=== PATIENT | male | born 1940 | race Caucasian/White ===

== ENCOUNTER → 2017-07-14 | Outpatient (CLI) | payer MEDICARE, OTHER, MEDICAID ==
[2017-07-14 16:10] LABS: ABG BASE EXCESS 2.4 MMOL/L (-2.5-2.5); ABG HCO3 26 MMOL/L (23-27); ABG OXYGEN SATURATION 95 % (94-100); ABG PCO2 37 MMHG (35-45); ABG PH 7.46 (7.37-7.43); ABG PO2 62 MMHG (79-93); ABG TCO2 27.3 MMOL/L (21.0-31.0)
[2017-07-14 16:11] LABS: ALLENS TEST POSITIVE; PATIENT TEMP 97.1
== END ==
LOC: LAB 15:33
PROVIDERS: ATTEND Nurse Practitioner Family
DX: J44.9 Chronic obstructive pulmonary disease, unspecified (principal); R06.00 Dyspnea, unspecified; F17.200 Nicotine dependence, unspecified, uncomplicated
CPT/HCPCS: 82805

== ENCOUNTER 2021-01-24 15:19 | Observation (INO) | payer OTHER ==
[~2021-01-24] VITALS: Ht 167 cm; Wt 74.5 kg
[2021-01-24] MEDS ORDERED: NS IV 1000 ML 1,000 ML IV STA ×2 (15:42→18:38)
[2021-01-24 16:04] LABS: BASOPHILS % (AUTO) 1 % (0-10); EOSINOPHILS % (AUTO) 6 % (0-10); HEMATOCRIT 38 % (40-54); HEMOGLOBIN 11.3 G/DL (13.3-17.7); LYMPHOCYTES % (AUTO) 10 % (12-44); MEAN CORPUSCULAR HEMOGLOBIN 23 PG (25-34); MEAN CORPUSCULAR HGB CONC 30 G/DL (32-36); MEAN CORPUSCULAR VOLUME 78 FL (80-99); MEAN PLATELET VOLUME 8.8 FL (7.4-10.4); MONOCYTES % (AUTO) 10 % (0-12); NEUTROPHILS % (AUTO) 73 % (42-75); PLATELET COUNT 349 10^3/uL (130-400); WHITE BLOOD COUNT 5.4 10^3/uL (4.3-11.0)
[2021-01-24 16:05] LABS: BASOPHILS # (AUTO) 0.1 10^3/uL (0.0-0.1); EOSINOPHILS # (AUTO) 0.3 10^3/uL (0.0-0.3); LYMPHOCYTES # (AUTO) 0.5 X 10^3 (1.0-4.0); MONOCYTES # (AUTO) 0.5 X 10^3 (0.0-1.0)
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
--- NOTE | 2021-01-24 16:08 | Diagnostic Imaging Report ---
INDICATION: Shortness of breath and general malaise. Frontal chest obtained at 0349 p.m. There is no prior study for comparison. The heart is normal in size. Mediastinal silhouette is unremarkable. There is a density in the left base which is probably due to epicardial fat pad. There is no focal infiltrate or pneumothorax. There is mild hyperinflation. There are old granulomatous changes in both lungs. IMPRESSION: Hyperinflation compatible COPD. No focal infiltrate or pleural fluid. Density along left heart border is probably a prominent fat pad. There are calcified granuloma in both lungs. Dictated by: Dictated on workstation # [id number]
[2021-01-24 16:23] LABS: ALBUMIN 4.2 GM/DL (3.2-4.5); BILIRUBIN,TOTAL 0.5 MG/DL (0.1-1.0); CREATININE SERUM 1.53 MG/DL (0.60-1.30); POTASSIUM 4.2 MMOL/L (3.6-5.0); TOTAL PROTEIN 7.7 GM/DL (6.4-8.2)
[2021-01-24] MEDS ORDERED: BUDE10.2 IH (16:54)
[2021-01-24] MEDS ORDERED: ALBU2.5V4 INH (16:54)
[2021-01-24] MEDS ORDERED: IPRA4AER IH (16:54)
[2021-01-24] MEDS ORDERED: Ipratropium Bromide IH (16:54)
[2021-01-24] MEDS ORDERED: SENN-36 PO (16:54)
[2021-01-24] MEDS ORDERED: PANT40TA52 PO (16:54)
[2021-01-24 17:08] LABS: CLARITY,URINE CLEAR; COLOR,URINE YELLOW
[2021-01-24 17:09] LABS: BILIRUBIN,URINE NEGATIVE (NEGATIVE); GLUCOSE, URINE (UA) NEGATIVE (NEGATIVE); KETONES,URINE NEGATIVE (NEGATIVE); LEUKOCYTE ESTERASE ,URINE NEGATIVE (NEGATIVE); NITRITE,URINE NEGATIVE (NEGATIVE); PROTEIN,URINE NEGATIVE (NEGATIVE)
[2021-01-24 17:13] LABS: BACTERIA,URINE NEGATIVE /HPF
[2021-01-24] MEDS: NS IV 1000 ML 1,000 ML IV SCH (22:40)
[2021-01-24 23:17] VITALS: BP 143/99
[2021-01-24] MEDS ORDERED: RT-ALBUTEROL SULF 2.5 MG/3 ML PRE-MIX VIAL INH PRN (23:30)
[2021-01-25 00:06] VITALS: BP 135/63
[2021-01-25 02:30] LABS: BASOPHILS # (AUTO) 0.1 10^3/uL (0.0-0.1); BASOPHILS % (AUTO) 1 % (0-10); EOSINOPHILS # (AUTO) 0.4 10^3/uL (0.0-0.3); EOSINOPHILS % (AUTO) 7 % (0-10); HEMATOCRIT 36 % (40-54); HEMOGLOBIN 10.4 g/dL (13.3-17.7); LYMPHOCYTES # (AUTO) 0.7 10^3/uL (1.0-4.0); LYMPHOCYTES % (AUTO) 11 % (12-44); MEAN CORPUSCULAR HEMOGLOBIN 24 pg (25-34); MEAN CORPUSCULAR HGB CONC 29 g/dL (32-36); MEAN CORPUSCULAR VOLUME 81 fL (80-99); MEAN PLATELET VOLUME 9.5 fL (9.0-12.2); MONOCYTES # (AUTO) 0.7 10^3/uL (0.0-1.0); MONOCYTES % (AUTO) 12 % (0-12); NEUTROPHILS # (AUTO) 4.1 10^3/uL (1.8-7.8); NEUTROPHILS % (AUTO) 69 % (42-75); PLATELET COUNT 285 10^3/uL (130-400); WHITE BLOOD COUNT 5.9 10^3/uL (4.3-11.0)
[2021-01-25 02:50] LABS: ALBUMIN 3.5 GM/DL (3.2-4.5); BILIRUBIN,TOTAL 0.5 MG/DL (0.1-1.0); CALCIUM 8.1 MG/DL (8.5-10.1); CREATININE SERUM 1.36 MG/DL (0.60-1.30); POTASSIUM 3.6 MMOL/L (3.6-5.0); TOTAL PROTEIN 6.7 GM/DL (6.4-8.2)
[2021-01-25 04:23] VITALS: BP 112/53
[2021-01-25] MEDS: NS IV 1000 ML 1,000 ML IV SCH (06:43)
[2021-01-25] MEDS ORDERED: RT-ALBUTEROL/IPRATROPIUM 3 ML (DUONEB) VIAL INH SCH (07:00)
[2021-01-25 08:00] VITALS: BP 143/79
[2021-01-25] MEDS ORDERED: RT-BUDESONIDE NEBS 0.5 MG/2ML (PULMICORT) AMP INH SCH (08:00)
[2021-01-25] MEDS ORDERED: ARFORMOTEROL 15 MCG/2 ML (BROVANA) INH SOLUTIION IH SCH (08:00)
[2021-01-25 08:38] VITALS: BP_SYST 127; BP_SYST 131; BP_DIAS 60; BP_DIAS 64
[2021-01-25] MEDS ORDERED: LIDOCAINE 1% INJ 20 ML 20 ML VIAL ONE (09:47)
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
[2021-01-25] MEDS ORDERED: NAPR220C11 PO (11:20)
[2021-01-25] MEDS ORDERED: IPRA4AER IH (11:20)
[2021-01-25] MEDS ORDERED: IPR14IN IH (11:20)
[2021-01-25] MEDS ORDERED: ASPI-1238 PO (11:20)
--- NOTE | 2021-01-25 11:45 | Discharge Summary ---
Discharge Summary Hospital Course Problems/Dx: (1) Near syncope Status: Acute Hospital Course Date of Admission: Jan 24, 2021 at 22:00 Admission Diagnosis : Near syncope Family Physician/Provider: Frederic Barnes Physician Date of Discharge: 01/25/21 Discharge Diagnosis: Near syncope Hospital Course: Sharon Adamson is an 80-year-old male with past medical history of COPD who was admitted with near syncope. He reports that he has been having issues with palpitations for years. He reports associated chills and nausea. He denies ever passing out. He has no history of cardiac abnormalities. Cardiology was cons ulted and assisted with his care. He had an implantable loop recorder placed. He will follow up with cardiology as an outpatient. He underwent evaluation for orthostatic hypotension but this was ruled out. He should follow-up with his primary care physician in about a week. He was instructed to return with worsening lightheadedness, dizziness, chest pain, or if he feels like he is getting worse. He was discharged home in stable condition. Labs and Pending Lab Test: Laboratory Tests 01/24/21 14:39: Prothrombin Time 13.0, INR Comment 1.0, Activated Partial Thromboplast Time 32, Sodium Level 136, Potassium Level 4.2, Chloride Level 101, Carbon Dioxide Level 23, Anion Gap 12, Blood Urea Nitrogen 14, Creatinine 1.53H, Estimat Glomerular Filtration Rate 44, BUN/Creatinine Ratio 9, Glucose Level 123H, Calcium Level 9.0, Corrected Calcium 8.8, Magnesium Level 2.0, Total Bilirubin 0.5, Aspartate Amino Transf (AST/SGOT) 26, Alanine Aminotransferase (ALT/SGPT) 16, Alkaline Phosphatase 97, Total Protein 7.7, Albumin 4.2, Lipase 22 01/24/21 15:51: White Blood Count 5.4, Red Blood Count 4.86, Hemoglobin 11.3L, Hematocrit 38L, Mean Corpuscular Volume 78L, Mean Corpuscular Hemoglobin 23L, Mean Corpuscular Hemoglobin Concent 30L, Red Cell Distribution Width 15.4H, Platelet Count 349, Mean Platelet Volume 8.8, Immature Granulocyte % (Auto) 0, Neutrophils (%) (Auto) 73, Lymphocytes (%) (Auto) 10L, Monocytes (%) (Auto) 10, Eosinophils (%) (Auto) 6, Basophils (%) (Auto) 1, Neutrophils # (Auto) 4.0, Lymphocytes # (Auto) 0.5L, Monocytes # (Auto) 0.5, Eosinophils # (Auto) 0.3, Basophils # (Auto) 0.1, Immature Granulocyte # (Auto) 0.0, Troponin I < 0.30, Pro-B-Type Natriuretic Peptide 1108.0H 01/24/21 17:00: Urine Color YELLOW, Urine Clarity CLEAR, Urine pH 6.0, Urine Specific [place] 1.010L, Urine Protein NEGATIVE, Urine Glucose (UA) NEGATIVE, Urine Ketones NEGATIVE, Urine Nitrite NEGATIVE, Urine Bilirubin NEGATIVE, Urine Urobilinogen 0.2, Urine Leukocyte Esterase NEGATIVE, Urine RBC (Auto) NEGATIVE, Urine RBC NONE, Urine WBC 2-5, Urine Squamous Epithelial Cells 2-5, Urine Crystals NONE, Urine Bacteria NEGATIVE, Urine Casts NONE, Urine Mucus NEGATIVE, Urine Culture Indicated NO 01/25/21 01:45: Sodium Level 140, Potassium Level 3.6, Chloride Level 109H, Carbon Dioxide Level 20L, Anion Gap 11, Blood Urea Nitrogen 11, Creatinine 1.36H, Estimat Glomerular Filtration Rate 50, BUN/Creatinine Ratio 8, Glucose Level 96, Calcium Level 8.1L , Corrected Calcium 8.5, Total Bilirubin 0.5, Aspartate Amino Transf (AST/SGOT) 23, Alanine Aminotransferase (ALT/SGPT) 16, Alkaline Phosphatase 76, Total Protein 6.7, Albumin 3.5, White Blood Count 5.9, Red Blood Count 4.39, Hemoglobin 10.4L, Hematocrit 36L, Mean Corpuscular Volume 81, Mean Corpuscular Hemoglobin 24L, Mean Corpuscular Hemoglobin Concent 29L, Red Cell Distribution Width 15.2H, Platelet Count 285, Mean Platelet Volume 9.5, Immature Granulocyte % (Auto) 1, Neutrophils (%) (Auto) 69, Lymphocytes (%) (Auto) 11L, Monocytes (%) (Auto) 12, Eosinophils (%) (Auto) 7, Basophils (%) (Auto) 1, Neutrophils # (Auto) 4.1, Lymphocytes # (Auto) 0.7L, Monocytes # (Auto) 0.7, Eosinophils # (Auto) 0.4H, Basophils # (Auto) 0.1, Immature Granulocyte # (Auto) 0.0, Troponin I < 0.028 Home Meds Active Reported Aleve (Naproxen Sodium) 220 Mg Capsule 220 Mg PO TID PRN Aspirin EC (Aspirin) 81 Mg Tablet.dr 81 Mg PO DAILY Atrovent Hfa (Ipratropium [place]) 12.9 Gm Aers 2 Puff IH BID PRN Combivent Respimat Inhal [place] (Albuterol/Ipratropium) 4 Gm Aero 1 Puff IH QID PRN MDD 6 PUFF PER DAY Senokot (Sennosides) 8.6 Mg Tablet 8.6 Mg PO BID PRN Pantoprazole Sodium 40 Mg Tablet.dr 40 Mg PO DAILY Symbicort 160-4.5 Mcg Inhaler (Budesonide/Formoterol Fumarate) 10.2 Gm Hfa.aer.ad 2 Puff IH BID Assessment/Pt Instructions Take medications as prescribed. You had a implantable loop recorder placed. Follow-up with cardiology as scheduled. Follow-up with your primary care physician in about a week. Return with worsening lightheadedness, dizziness, chest pain, or if you feel like you are getting worse. Discharge Planning: <30 minutes discharge planning Discharge Instructions Discharge Diet: No Restrictions Activity as Tolerated: Yes Consultations Cardiology Discharge Physical Examination Vital Signs Vital Signs Date Time Temp Pulse Resp B/P (MAP) Pulse Ox O2 Delivery O2 Flow Rate FiO2 01/25/21 10:44 93 Room Air 01/25/21 08:38 98 127/64 (85) 102 131/60 (83) 103 131/60 (83) 01/25/21 08:00 36.0 20 01/24/21 23:17 21 General Appearance: No Apparent Distress, WD/WN HEENT: PERRL/EOMI, Pharynx Normal Respiratory: Lungs Clear, Normal Breath Sounds, No Respiratory Distress Cardiovascular: Regular Rate, Rhythm, No Murmur Gastrointestinal: Normal Bowel Sounds, Non Tender, Soft Extremity: Normal Inspection, Non Tender, Pedal Edema Skin: Normal Color, Warm/Dry Neurologic/Psychiatric: Alert, Oriented x3, No Motor/Sensory Deficits, Normal Mood/Affect Allergies: Coded Allergies: simvastatin (Unverified Adverse Reaction, Unknown, 01/24/21) Discharge Summary Date of Admission Jan 24, 2021 at 22:00 Date of Discharge Discharge Date: Jan 25, 2021 Discharge Time: 11:45 Admission Diagnosis Near syncope Consults/Procedures Consulations Cardiology Procedures Implantable loop recorder Discharge Diagnosis (1) Near syncope Status: Acute ESAU SMITH MD Jan 25, 2021 11:45
[2021-01-25 15:28] VITALS: BP 131/60
--- NOTE | 2021-01-25 17:43 | OPERATIVE REPORT ---
DATE OF SERVICE: 01/25/2021 PREOPERATIVE DIAGNOSIS: Near syncope. POSTOPERATIVE DIAGNOSIS: Near syncope. PROCEDURE: Implantable loop recorder implantation. INDICATIONS: The patient is an 80-year-old gentleman who has symptoms of near syncope and palpitations. Symptoms are infrequent, but quite bothersome to him. Implantable loop recorder implantation was carried out today after having obtained an informed consent. DESCRIPTION OF PROCEDURE: The left prepectoral area was prepared and draped in the usual sterile fashion. Lidocaine 1% was used for local anesthesia. The tools provided with the Medtronic Reveal LINQ device were used to make a subcutaneous pocket anterior to the fourth intercostal space into which the Medtronic Reveal LINQ device was placed and the wound edges were closed using Dermabond and Steri-Strips. The serial number of the device is [id number]. He tolerated the procedure well. Job ID: [id number] DocumentID: [id number] Dictated Date: 01/25/2021 10:24:22 [employer] Date: 01/25/2021 17:42:15 Dictated By: JOSR YANG MD, MA, FACP, FACC, MTDD
--- NOTE | 2021-01-25 17:44 | Consultation-Cardiology ---
HPI-Cardiology Cardiology Consultation: Date of Consultation 01/25/21 Time Seen by a Provider: 09:30 Date of Admission Attending Physician Roxy Dumont MD Admitting Physician Mica Green Consulting Physician JOSR YANG MD, MA, FACP, FACC, [facility] [place], CCDS HPI: Chief Complaint: CC: Near-syncope HPI Mr. Adamson is an 80 yr old male admitted to [facility] d/t near syncope. He reports he has had infrequent episodes of syncope/near syncope for over a year for which he has quit driving. He reports the episodes can occur while sitting at rest or even when lying down. He states he can feel them coming on; describing it as starting out as a drunk feeling at which time he becomes warm and flushed, nauseated, everything starts to go dark and then he has a sudden cold sensation with a feeling of a somewhat fast heartbeat. He reports he will just sit "real still" and after approx 1- 2 minutes the episode will pass. No c/o CP. No c/o LE swelling. He quit smoking over a year ago. He denies any diarrhea. He has chronic SOB d/t COPD which is unchanged. Review of Systems-Cardiology Review of Systems Constitutional: No chills, No fever; malaise Ears/Nose/Throat: No epistaxis, No recent hearing loss Respiratory: As described under HPI Cardiovascular: As described under HPI Gastrointestinal: As described under HPI Genitourinary: No dysuria, No hematuria Musculoskeletal: other (chronic leg pain/weakness) Skin: No rash on exposed areas, No ulcerations on exposed areas Psychiatric/Neurological: As described under HPI; No anxiety, No depression, No seizure, No focal weakness Hematologic: No bleeding abnormalities JLA-Zyocxw-Krdszz Hx Patient Social History Smoking Status: Former Smoker 2nd Hand Smoke Exposure: Yes Have you traveled recently?: No Alcohol Use?: No Pt feels they are or have been: No Tobacco type used: Cigars Immunizations Up To Date Tetanus Booster (TDap): Unknown Date of Pneumonia Vaccine: Aug 14, 2016 Past Medical History PMH As described under Assessment. Family Medical History Family Medical History: He does not report any family h/o CAD Allergies and Home Medications Allergies Coded Allergies: simvastatin (Unverified Adverse Reaction, Unknown, 01/24/21) Home Medications Albuterol/Ipratropium 4 Gm Aero, 1 PUFF IH QID PRN for SHORTNESS OF BREATH, (Reported) Last Action: Reviewed Aspirin 81 Mg Tablet.dr, 81 MG PO DAILY, (Reported) Last Action: Reviewed Budesonide/Formoterol Fumarate 10.2 Gm Hfa.aer.ad, 2 PUFF IH BID, (Reported) Last Action: Reviewed Ipratropium [place] 12.9 Gm Aers, 2 PUFF IH BID PRN for SHORTNESS OF BREATH, (Reported) Last Action: Reviewed Naproxen Sodium 220 Mg Capsule, 220 MG PO TID PRN for PAIN-MILD (1-4), (Reported) Last Action: Reviewed Pantoprazole Sodium 40 Mg Tablet.dr, 40 MG PO DAILY, (Reported) Last Action: Reviewed Sennosides 8.6 Mg Tablet, 8.6 MG PO BID PRN for CONSTIPATION-5TH LINE, (Reported) Last Action: Reviewed Patient Home Medication List Home Medication List Reviewed: Yes Physical Exam-Cardiology Physical Exam Vital Signs/I&O 01/25/21 01/25/21 01/25/21 01/25/21 07:14 07:21 07:25 08:00 Temp 36.0 Pulse 81 88 Resp 20 B/P (MAP) 143/79 (100) Pulse Ox 91 98 91 O2 Delivery Room Air Room Air Room Air 01/25/21 01/25/21 01/25/21 01/25/21 08:00 08:38 10:44 12:00 Temp 36.1 Pulse 98 102 103 B/P (MAP) 127/64 (85) 131/60 (83) 131/60 (83) Pulse Ox 95 93 O2 Delivery Room Air Room Air 01/25/21 01/25/21 13:00 15:28 Temp 36.1 Pulse 94 94 Resp 20 B/P (MAP) 131/60 Pulse Ox 93 O2 Delivery Room Air 01/25/21 00:00 Intake Total 1350 ml Balance 1350 ml Capillary Refill : Less Than 3 Seconds Constitutional: AAO x 3, well-developed, well-nourished HEENT: PERRL, hearing is well preserved, oral hygience is good Neck: No carotid bruit; carotid pulses are 2 + bilaterally Respiratory: No accessory muscle use, No respiratory distress; chest expansion is symmetric, chest is bilaterally symmetric, lungs clear to auscultation Cardiovascular: regular rate-rhythm; No JVD; S1 and S2 Gastrointestinal: No tender; soft Extremities: no lower extremity edema bilateral Neurologic/Psychiatric: grossly intact (moves all extremities) Skin: No rash on exposed areas, No ulcerations on exposed areas Data Review Labs Laboratory Tests 01/25/21 01:45: White Blood Count 5.9, Red Blood Count 4.39, Hemoglobin 10.4L, Hematocrit 36L, Mean Corpuscular Volume 81, Mean Corpuscular Hemoglobin 24L, Mean Corpuscular Hemoglobin Concent 29L, Red Cell Distribution Width 15.2H, Platelet Count 285, Mean Platelet Volume 9.5, Immature Granulocyte % (Auto) 1, Neutrophils (%) (Auto) 69, Lymphocytes (%) (Auto) 11L, Monocytes (%) (Auto) 12, Eosinophils (%) (Auto) 7, Basophils (%) (Auto) 1, Neutrophils # (Auto) 4.1, Lymphocytes # (Auto) 0.7L, Monocytes # (Auto) 0.7, Eosinophils # (Auto) 0.4H, Basophils # (Auto) 0.1, Immature Granulocyte # (Auto) 0.0, Sodium Level 140, Potassium Level 3.6, Chloride Level 109H, Carbon Dioxide Level 20L, Anion Gap 11, Blood Urea Nitrogen 11, Creatinine 1.36H, Estimat Glomerular Filtration Rate 50, BUN/Creatinine Ratio 8, Glucose Level 96, Calcium Level 8.1L, Corrected Calcium 8.5, Total Bilirubin 0.5, Aspartate Amino Transf (AST/SGOT) 23, Alanine Aminotransferase (ALT/SGPT) 16, Alkaline Phosphatase 76, Troponin I < 0.028, Total Protein 6.7, Albumin 3.5 A/P-Cardiology Assessment/Admission Diagnosis Syncope/near syncope of undetermined etiology - ILR implanted on 01/25/21 Severe PAD with h/o arterial graft from the right shoulder to the lower limb circulation done at [facility] in [place], [place] - details unknown COPD H/O tobaccoism - quit in 2019 Discussion and Recomendations Due to symptoms of near-syncope that are infrequent but quite prominent, we recommended ILR We discussed the procedure, risk, benefits. He provided informed consent. ILR was implanted Advise out pt f/u in 2-3 weeks Advise continue smoking cessation Carotid u/s Spoke with Dr. Dumont this morning regarding his case We would like to thank Medical services for this consult Further recs will be based on his hospital course JOSR YANG MD FACP FAC CCDS Jan 25, 2021 17:44
== END 2021-01-25 15:35 | disposition home or self-care (01) ==
LOC: EDUNIT# 15:19 → ER FS 15:21 → 4TH 22:00
PROVIDERS: ADMIT Internal Medicine; ATTEND Internal Medicine
DX: R55 Syncope and collapse (principal); J44.9 Chronic obstructive pulmonary disease, unspecified; N18.9 Chronic kidney disease, unspecified; R42 Dizziness and giddiness; I73.9 Peripheral vascular disease, unspecified; Z79.82 Long term (current) use of aspirin; Z79.51 Long term (current) use of inhaled steroids; Z79.899 Other long term (current) drug therapy; Z88.8 Allergy status to other drugs, medicaments and biological substances; Z87.891 Personal history of nicotine dependence
CPT/HCPCS: 33285; 36415; 71045; 80053 ×2; 81000; 83690; 83735; 83880; 84484 ×2; 85025 ×2; 85610; 85730; 93005; 93041; 94640; 94760; 99284; C1764; G0378

== ENCOUNTER → 2021-02-27 | Outpatient (CLI) | payer OTHER ==
[~2021-02-27] MED LIST: ALBU2.5V4 INH; ASPI-1238 PO; BUDE10.2 IH; IPR14IN IH; IPRA4AER IH; Ipratropium Bromide IH; NAPR220C11 PO; PANT40TA52 PO; SENN-36 PO
--- NOTE | 2021-02-27 15:37 | Diagnostic Imaging Report ---
PROCEDURE: US carotid duplex, bilateral. INDICATION: Near syncopal episode. History of tobacco use. TECHNIQUE: Multiple real-time grayscale images were obtained over the carotid arteries in various projections bilaterally. Additional spectral analysis and color Doppler and Duplex images were also obtained. CORRELATION: None FINDINGS: Right carotid circulation: The right common carotid artery is normal in course and caliber. There is moderate atherosclerosis at the carotid bifurcation and origin the right internal and external carotid artery. No hemodynamically significant stenosis is present. Left carotid circulation: The left common carotid artery is normal in course and caliber. Fairly tortuous course of the left internal carotid artery. There is moderate atherosclerosis of the carotid bifurcation and origin the left internal and external carotid artery. No hemodynamically significant stenosis is present. Antegrade flow in the bilateral vertebral arteries. DOPPLER (peak systolic velocity M/S Right Left CCA .74 .73 ICA Proximal .40 .43 ICA Mid .68 1.2 ICA Distal .70 1.3 RATIO .95 1.8 ECA 1.8 1.2 VERT .57 .48 IMPRESSION: 1. Moderate atherosclerosis involving the carotid bifurcations and origin of the bilateral internal and external carotid arteries left slightly greater than right. 2. No sonographic evidence of hemodynamically significant stenosis of either internal carotid artery based on flow velocity criteria. 3. Mild stenosis of bilateral external carotid arteries. 4. Given findings, periodic follow-up survey assessment would be recommended. Parameters based on the consensus panel Adkins-Scale and Doppler ultrasound criteria published July 2003, Radiology, Volume 229. Dictated by: Dictated on workstation # [id number]
--- NOTE | 2021-02-27 16:23 | Diagnostic Imaging Report ---
PROCEDURE: CT head without contrast. TECHNIQUE: Multiple contiguous axial images were obtained through the brain without the use of intravenous contrast. Auto Exposure Controls were utilized during the CT exam to meet ALARA standards for radiation dose reduction. DATE: February 27, 2021. COMPARISON: None. INDICATION: 80-year-old male, syncope, weakness. FINDINGS: The ventricles and cerebral spinal fluid spaces are of normal size and configuration for the patient's age. There is no mass effect or midline shift. There is no acute intracranial hemorrhage. There is no abnormal extra-axial fluid collection. The visualized portions of the paranasal sinuses, mastoid air cells and middle ears are well aerated. IMPRESSION: 1. No identified acute intracranial abnormality. Dictated by: Dictated on workstation # [id number]
== END ==
LOC: RAD 12:30
PROVIDERS: ATTEND Nurse Practitioner
DX: I65.23 Occlusion and stenosis of bilateral carotid arteries (principal); Z87.891 Personal history of nicotine dependence
CPT/HCPCS: 70450; 93880

== ENCOUNTER 2022-02-15 20:00 | Inpatient (IN) | payer OTHER, MEDICARE, MEDICAID ==
[~2022-02-15] VITALS: Ht 168 cm; Wt 70.9 kg
[2022-02-15] MEDS ORDERED: FUROSEMIDE 40 MG/4 ML INJ (LASIX) ONE (20:08)
[2022-02-15] MEDS ORDERED: RT-IPRATROPIUM (ATROVENT) 0.5MG/2.5ML AMP IH STA (20:09)
[2022-02-15] MEDS ORDERED: methylPREDNISolone 125 MG (Solu-MEDROL) VIAL IM ONE (20:15)
[2022-02-15] MEDS ORDERED: FUROSEMIDE 40 MG/4 ML INJ (LASIX) IVP ONE (20:15)
[2022-02-15 20:17] LABS: BASOPHILS # (AUTO) 0.1 10^3/uL (0.0-0.1); BASOPHILS % (AUTO) 1 % (0-10); EOSINOPHILS # (AUTO) 0.5 10^3/uL (0.0-0.3); EOSINOPHILS % (AUTO) 7 % (0-10); HEMATOCRIT 43 % (40-54); HEMOGLOBIN 13.8 g/dL (13.3-17.7); LYMPHOCYTES # (AUTO) 0.6 10^3/uL (1.0-4.0); LYMPHOCYTES % (AUTO) 9 % (12-44); MEAN CORPUSCULAR HEMOGLOBIN 28 pg (25-34); MEAN CORPUSCULAR HGB CONC 32 g/dL (32-36); MEAN CORPUSCULAR VOLUME 88 fL (80-99); MEAN PLATELET VOLUME 9.3 fL (9.0-12.2); MONOCYTES # (AUTO) 0.7 10^3/uL (0.0-1.0); MONOCYTES % (AUTO) 11 % (0-12); NEUTROPHILS # (AUTO) 4.6 10^3/uL (1.8-7.8); NEUTROPHILS % (AUTO) 71 % (42-75); PLATELET COUNT 272 10^3/uL (130-400); WHITE BLOOD COUNT 6.4 10^3/uL (4.3-11.0)
--- NOTE | 2022-02-15 20:25 | Diagnostic Imaging Report ---
EXAMINATION: Chest 1 view. HISTORY: SOB. COMPARISON: None available. FINDINGS: Heart size and pulmonary vasculature are normal. Patchy interstitial opacities seen throughout the left lung. No pleural effusion or pneumothorax. The right costophrenic angle is not entirely visualized. Right axillary surgical clips are present. The osseous structures are intact. IMPRESSION: Patchy interstitial opacities seen throughout the left lung concerning for pneumonia. Dictated by: Dictated on workstation # [id number]
[2022-02-15 20:30] LABS: FIBRIN DEGRADATION PRODUCTS 2.54 UG/ML (0.00-0.49); INR 0.9 (0.8-1.4); PROTHROMBIN TIME PATIENT 12.6 SEC (12.2-14.7)
[2022-02-15 20:35] LABS: BUN/CREATININE RATIO 10; CARBON DIOXIDE 26 MMOL/L (21-32); CHLORIDE 101 MMOL/L (98-107); CREATININE SERUM 1.08 MG/DL (0.60-1.30); GFR ESTIMATED 69; GLUCOSE 104 MG/DL (70-105); MAGNESIUM 2.1 MG/DL (1.6-2.4); POTASSIUM 4.2 MMOL/L (3.6-5.0); SODIUM 138 MMOL/L (135-145)
[2022-02-15 20:36] LABS: ALANINE AMINOTRANSFERASE 16 U/L (0-55); ALBUMIN 4.1 GM/DL (3.2-4.5); ALKALINE PHOSPHATASE 90 U/L (40-136); BILIRUBIN,TOTAL 0.3 MG/DL (0.1-1.0); TOTAL PROTEIN 7.4 GM/DL (6.4-8.2)
[2022-02-15] MEDS ORDERED: CEFEPIME INJECTION 1,000 MG in NS (IVPB) 50 ML IV ONE (20:45)
[2022-02-15 20:58] LABS: BILIRUBIN,URINE NEGATIVE (NEGATIVE); CLARITY,URINE CLEAR; COLOR,URINE YELLOW; GLUCOSE, URINE (UA) NEGATIVE (NEGATIVE); KETONES,URINE NEGATIVE (NEGATIVE); LEUKOCYTE ESTERASE ,URINE NEGATIVE (NEGATIVE); NITRITE,URINE NEGATIVE (NEGATIVE); PROTEIN,URINE NEGATIVE (NEGATIVE)
[2022-02-15] MEDS ORDERED: HOLD METFORMIN - RECEIVED CONTRAST 20 ML VIAL IV SCH (21:00)
[2022-02-15] MEDS ORDERED: NS 100 ML (IVPB) BAG IV ONE (21:00)
[2022-02-15] MEDS ORDERED: IOHEXOL 350 MG/ML 150 ML (OMNIPAQUE 350) VIAL IV ONE (21:00)
[2022-02-15 21:02] LABS: BACTERIA,URINE FEW /HPF; CALCIUM OXALATE CRYSTALS,UR FEW /LPF
[2022-02-15 21:14] LABS: AMPHETAMINE SCREEN, URINE NEGATIVE (NEGATIVE); BARBITURATE SCREEN URINE NEGATIVE (NEGATIVE); BENZODIAZEPINES SCREEN URINE NEGATIVE (NEGATIVE); CANNABINOID SCREEN, URINE NEGATIVE (NEGATIVE); COCAINE SCREEN URINE NEGATIVE (NEGATIVE); METHADONE STAT NEGATIVE (NEGATIVE); OPIATE SCREEN URINE NEGATIVE (NEGATIVE); OXYCODONE STAT NEGATIVE (NEGATIVE); PROPOXYPHENE STAT NEGATIVE (NEGATIVE); TRICYCLIC ANTIDEPRESSANTS SCRE NEGATIVE (NEGATIVE)
--- NOTE | 2022-02-15 21:41 | Diagnostic Imaging Report ---
EXAMINATION: CT angiography of the chest. TECHNIQUE: Contrast enhanced thin section helical images were obtained through the chest with intravenous contrast timed for the optimal opacification of the arterial structures per CTA protocol. Post-processing, reconstructions and interpretation of angiographic images of the vessels was performed. 3D MIP reconstructions were performed and reviewed. All CT scans use one or more of the following dose optimizing techniques: automated exposure control, MA and/or KvP adjustment based on patient size and exam type or iterative reconstruction. HISTORY: Elevated d-dimer. COMPARISON: None available. FINDINGS: Vascular: Suboptimal bolus timing limits evaluation for distal pulmonary emboli. The visualized main and proximal pulmonary arteries are patent without filling defect. There is calcified and noncalcified plaque seen throughout the thoracic and visualized upper abdominal aorta. There is approximately 50% stenosis of the infrarenal abdominal aorta. No aneurysm or dissection. Thyroid: The thyroid is normal. Mediastinum: Heart size is normal without significant pericardial effusion. There are multiple enlarged mediastinal lymph nodes which may be centrally necrotic and measure up to 2.7 cm in short axis. Lungs and airways: There are background emphysematous changes of the lungs. Patchy consolidation is seen throughout the left upper lobe. There are a few scattered bilateral pulmonary nodules with irregular appearance and measure up to 1.0 in the right upper lobe. No pneumothorax. There are a few scattered calcified granulomas present. There is a left pleural effusion. There is soft tissue fullness within the left hilum. The airways are normal. Upper abdomen: The subphrenic structures are normal. Musculoskeletal: Compression deformity of the T9 vertebral body. No suspicious osseous lesion. IMPRESSION: 1. Suboptimal evaluation for pulmonary emboli secondary to bolus timing. No obvious pulmonary emboli are seen. 2. Atherosclerosis with up to 50% stenosis of the infrarenal abdominal aorta. No aneurysm or dissection. 3. Multiple enlarged mediastinal lymph nodes are highly concerning for neoplastic process such as metastatic disease or lymphoma. 4. Prominent soft tissue within the left perihilum which could represent additional soniya metastasis versus primary lung cancer. 5. Patchy consolidation seen throughout the left lung concerning for superimposed pneumonia. 6. Scattered bilateral pulmonary nodules measuring up to 1.0 cm which could represent additional foci of infection versus pulmonary metastatic disease. 7. COPD. Critical finding. Results communicated to Dr. Matthews by Dr. Gigi Asencio at 9:36 PM on 02/15/2022. Dictated by: Dictated on workstation # [id number]
--- NOTE | 2022-02-15 22:00 | ED Respiratory ---
General Chief Complaint: Respiratory Problems Stated Complaint: SOB Nursing Triage Note: Pt brought in by ems with the complaint of shortness of breath. Pt has a hx of COPD and states he became sob this morning. 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 Shortness of breath appeared suddenly when patient was transferring from the chair to the sofa this evening. When EMS reached the patient's house patient was satting in the low 80s on room air, and was started on 6 L of oxygen with sats rising to low 90s. Patient was in the ER, his lungs were gurgling loudly, and patient was speaking but breathless while speaking. Over the course of treatment in the ER patient's symptoms improved. Denies fever, cough, illness, known sick contacts, abdominal pain, diarrhea, chest pain, palpitations. Allergies and Home Medications Allergies Coded Allergies: albuterol (Verified Adverse Reaction, Mild, 02/15/22) Patient Home Medication List Home Medication List Reviewed: Yes Review of Systems Review of Systems Constitutional: no symptoms reported EENTM: no symptoms reported Respiratory: short of breath, wheezing Cardiovascular: no symptoms reported Gastrointestinal: no symptoms reported Genitourinary: no symptoms reported Musculoskeletal: no symptoms reported Skin: no symptoms reported Psychiatric/Neurological: No Symptoms Reported Hematologic/Lymphatic: No Symptoms Reported Immunological/Allergic: no symptoms reported Past Pixjafy-Mqnmdk-Byvezd Hx Patient Social History Tobacco Use?: No Smoking Status: Former Smoker Use of E-Cig and/or Vaping dev: No Substance use?: No Alcohol Use?: No Pt feels they are or have been: No Physical Exam Vital Signs - First Documented 02/15/22 20:05 Temp 37.2 Pulse 116 Resp 20 B/P (MAP) 162/81 (108) Pulse Ox 94 O2 Delivery Nasal Cannula Capillary Refill : Less Than 3 Seconds Height: '" Weight: lbs. oz. kg; BMI Method: General Appearance: moderate distress HEENT: PERRL/EOMI, normal ENT inspection Neck: full range of motion Respiratory: respiratory distress, crackles, rales, wheezing, other (gurgling in chest , but greater on the right side) Cardiovascular: normal peripheral pulses, no edema, tachycardia Gastrointestinal: normal bowel sounds, non tender, soft Extremities: normal range of motion Neurologic/Psychiatric: no motor/sensory deficits, alert, normal mood/affect, oriented x 3 Skin: normal color Focused Exam Lactate Level 02/15/22 21:00: Lactic Acid Level 1.02 Lactic Acid Level Laboratory Tests Test 02/15/22 21:00 Lactic Acid Level 1.02 MMOL/L (0.50-2.00) Progress/Results/Core Measures Suspected Sepsis SIRS Temperature: Pulse: 116 Respiratory Rate: 20 Laboratory Tests 02/15/22 20:06: White Blood Count 6.4 Blood Pressure 162 /81 Mean: 108 02/15/22 21:00: Lactic Acid Level 1.02 Laboratory Tests 02/15/22 20:06: Creatinine 1.08, INR Comment 0.9, Platelet Count 272, Total Bilirubin 0.3 Results/Orders Lab Results Laboratory Tests Test 02/15/22 20:06 02/15/22 20:20 02/15/22 20:55 02/15/22 21:00 Range/Units White Blood Count 6.4 4.3-11.0 10^3/uL Red Blood Count 4.87 4.30-5.52 10^6/uL Hemoglobin 13.8 13.3-17.7 g/dL Hematocrit 43 40-54 % Mean Corpuscular Volume 88 80-99 fL Mean Corpuscular Hemoglobin 28 25-34 pg Mean Corpuscular Hemoglobin Concent 32 32-36 g/dL Red Cell Distribution Width 14.6 H 10.0-14.5 % Platelet Count 272 130-400 10^3/uL Mean Platelet Volume 9.3 9.0-12.2 fL Immature Granulocyte % (Auto) 1 % Neutrophils (%) (Auto) 71 42-75 % Lymphocytes (%) (Auto) 9 L 12-44 % Monocytes (%) (Auto) 11 0-12 % Eosinophils (%) (Auto) 7 0-10 % Basophils (%) (Auto) 1 0-10 % Neutrophils # (Auto) 4.6 1.8-7.8 10^3/uL Lymphocytes # (Auto) 0.6 L 1.0-4.0 10^3/uL Monocytes # (Auto) 0.7 0.0-1.0 10^3/uL Eosinophils # (Auto) 0.5 H 0.0-0.3 10^3/uL Basophils # (Auto) 0.1 0.0-0.1 10^3/uL Immature Granulocyte # (Auto) 0.0 0.0-0.1 10^3/uL Prothrombin Time 12.6 12.2-14.7 SEC INR Comment 0.9 0.8-1.4 Activated Partial Thromboplast Time 32 24-35 SEC D-Dimer 2.54 H 0.00-0.49 UG/ML Sodium Level 138 135-145 MMOL/L Potassium Level 4.2 3.6-5.0 MMOL/L Chloride Level 101 98-107 MMOL/L Carbon Dioxide Level 26 21-32 MMOL/L Anion Gap 11 5-14 MMOL/L Blood Urea Nitrogen 11 7-18 MG/DL Creatinine 1.08 0.60-1.30 MG/DL Estimat Glomerular Filtration Rate 69 BUN/Creatinine Ratio 10 Glucose Level 104 70-105 MG/DL Calcium Level 9.0 8.5-10.1 MG/DL Corrected Calcium 8.9 8.5-10.1 MG/DL Magnesium Level 2.1 1.6-2.4 MG/DL Total Bilirubin 0.3 0.1-1.0 MG/DL Aspartate Amino Transf (AST/SGOT) 27 5-34 U/L Alanine Aminotransferase (ALT/SGPT) 16 0-55 U/L Alkaline Phosphatase 90 40-136 U/L Troponin I < 0.30 <0.30 NG/ML Pro-B-Type Natriuretic Peptide 166.0 H <75.0 PG/ML Total Protein 7.4 6.4-8.2 GM/DL Albumin 4.1 3.2-4.5 GM/DL Urine Color YELLOW Urine Clarity CLEAR Urine pH 6.0 5-9 Urine Specific [place] 1.025 H 1.016-1.022 Urine Protein NEGATIVE NEGATIVE Urine Glucose (UA) NEGATIVE NEGATIVE Urine Ketones NEGATIVE NEGATIVE Urine Nitrite NEGATIVE NEGATIVE Urine Bilirubin NEGATIVE NEGATIVE Urine Urobilinogen 0.2 < = 1.0 MG/DL Urine Leukocyte Esterase NEGATIVE NEGATIVE Urine RBC (Auto) NEGATIVE NEGATIVE Urine RBC 5-10 H /HPF Urine WBC 2-5 /HPF Urine Crystals PRESENT H /LPF Urine Calcium Oxalate Crystals FEW H /LPF Urine Bacteria FEW H /HPF Urine Casts NONE /LPF Urine Mucus LARGE H /LPF Urine Culture Indicated NO Urine Opiates Screen NEGATIVE NEGATIVE Urine Oxycodone Screen NEGATIVE NEGATIVE Urine Methadone Screen NEGATIVE NEGATIVE Urine Propoxyphene Screen NEGATIVE NEGATIVE Urine Barbiturates Screen NEGATIVE NEGATIVE Ur Tricyclic Antidepressants Screen NEGATIVE NEGATIVE Urine Phencyclidine Screen NEGATIVE NEGATIVE Urine Amphetamines Screen NEGATIVE NEGATIVE Urine Methamphetamines Screen NEGATIVE NEGATIVE Urine Benzodiazepines Screen NEGATIVE NEGATIVE Urine Cocaine Screen NEGATIVE NEGATIVE Urine Cannabinoids Screen NEGATIVE NEGATIVE Lactic Acid Level 1.02 0.50-2.00 MMOL/L My Orders Orders - VÍCTOR MATTHEWS MD Chest 1 View Ap/Pa Only (02/15/22 20:05) Furosemide Injection (Lasix Injection) (02/15/22 20:15) Ipratropium 0.02% Neb Solution (Atrovent (02/15/22 20:09) Svn Small Volume Nebulizer (02/15/22 20:09) Methylprednisolone Sod Succ (Solu-Medrol (02/15/22 20:15) Furosemide Injection (Lasix Injection) (02/15/22 20:08) Cbc With Automated Diff (02/15/22 20:12) Comprehensive Metabolic Panel (02/15/22 20:12) Fibrin Degradation Products (02/15/22 20:12) Drug Screen Stat (Urine) (02/15/22 20:12) Magnesium (02/15/22 20:12) Protime With Inr (02/15/22 20:12) Partial Thromboplastin Time (02/15/22 20:12) Ua Culture If Indicated (02/15/22 20:12) Troponin I Fs (02/15/22 20:12) Covid 19 Inhouse Test (02/15/22 20:14) Probnp Fs (02/15/22 20:16) Blood Culture (02/15/22 20:44) Lactic Acid Analyzer (02/15/22 20:44) Cefepime Injection (Maxipime Injection) (02/15/22 20:45) Ct Angio Chest W (02/15/22 20:54) Iohexol Injection (Omnipaque 350 Mg/Ml 1 (02/15/22 21:00) Received Contrast (Hold Metformin- Contr (02/15/22 21:00) Ns (Ivpb) (Sodium Chloride 0.9% Ivpb Bag (02/15/22 21:00) Medications Given in ED Current Medications Medications Dose Ordered Sig/Sima Route Start Time Stop Time Status Last Admin Dose Admin Cefepime HCl 1000 mg/Sodium Chloride 50 ml @ 100 mls/hr ONCE ONCE IV 02/15/22 20:45 02/15/22 21:14 DC 02/15/22 21:27 100 MLS/HR Furosemide 40 mg ONCE ONCE IVP 02/15/22 20:15 02/15/22 20:16 DC 02/15/22 20:13 40 MG Iohexol 125 ml ONCE ONCE IV 02/15/22 21:00 02/15/22 21:01 DC 02/15/22 21:11 125 ML Methylprednisolone Sodium Succinate 125 mg ONCE ONCE IM 02/15/22 20:15 02/15/22 20:16 DC 02/15/22 20:14 125 MG Sodium Chloride 100 ml ONCE ONCE IV 02/15/22 21:00 02/15/22 21:01 DC 02/15/22 21:11 100 ML Vital Signs/I&O 02/15/22 20:05 Temp 37.2 Pulse 116 Resp 20 B/P (MAP) 162/81 (108) Pulse Ox 94 O2 Delivery Nasal Cannula Capillary Refill : Less Than 3 Seconds Blood Pressure Mean: 108 Progress Note : Progress Note 1. SOB: ACUTE PULMONARY EDEMA, RESOLVED - Pt's lung sounds were gurgling, more on the right side when he first came in. Lasix 40mg iv given immediately, with quick improvement and resolution of gurgling within 20 minutes. CXR done after that does not show pulmonary edema. I believe the pulmonary edema cleared up with the lasix before the CXR was taken. Also symptoms were suden onset at home with desaturation to 80's when EMS arrived to his home. - Initially given Solumedrol 125mg iv and Atrovent neb STAT as well - Pt states Albuterol allergy with side effects of SOB and vomiting. Called RT at [facility] to discuss and she suggested to try Atrovent alone first. - Pro BNP/ Troponin/ Lactic acid: unremarlable 2. LEFT UPPER LOBE PNEUMONIA: - CXR: left lobe PNA - CBC: normal WBC - Blood cultures x 2 - Cefepime 1gm iv STAT - Will admit to Obs ICU after discussing with Dr Vogt 2. ELEVATED D-DIMER: LUNG CANCER VERSUS METS TO LUNG - D-dimer is elevated to 2.54 - CTA CHEST : No PE, shows lung cancer vs mets, see report below, and PNA - Will need Oncology consult on admission Diagnostic Imaging Diagonstic Imaging: Xray, CT Plain Films/CT/US/NM/MRI: chest Comments [facility], [place] NAME: KARYN ZAPATA [facility] REC#: [id number] PT STATUS: REG ER : 1940 PHYSICIAN: VÍCTOR MATTHEWS MD ADMIT DATE: 02/15/22/ER FS Signed Date of Exam:02/15/22 CHEST 1 VIEW AP/PA ONLY EXAMINATION: Chest 1 view. HISTORY: SOB. COMPARISON: None available. FINDINGS: Heart size and pulmonary vasculature are normal. Patchy interstitial opacities seen throughout the left lung. No pleural effusion or pneumothorax. The right costophrenic angle is not entirely visualized. Right axillary surgical clips are present. The osseous structures are intact. IMPRESSION: Patchy interstitial opacities seen throughout the left lung concerning for pneumonia. Dictated by: Dictated on workstation # [id number] Dict: 02/15/222022 Trans: 02/15/222106 [facility] [id number] Interpreted by: PIPO MOON DO Electronically signed by: PIPO MOON DO 02/15/222106 [facility] [place] NAME: KARYN ZAPATA [facility] REC#: [id number] PT STATUS: REG ER : 1940 PHYSICIAN: VÍCTOR MATTHEWS MD ADMIT DATE: 02/15/22/ER FS Draft Date of Exam:02/15/22 CT ANGIO CHEST W EXAMINATION: CT angiography of the chest. TECHNIQUE: Contrast enhanced thin section helical images were obtained through the chest with intravenous contrast timed for the optimal opacification of the arterial structures per CTA protocol. Post-processing, reconstructions and interpretation of angiographic images of the vessels was performed. 3D MIP reconstructions were performed and reviewed. All CT scans use one or more of the following dose optimizing techniques: automated exposure control, MA and/or KvP adjustment based on patient size and exam type or iterative reconstruction. HISTORY: Elevated d-dimer. COMPARISON: None available. FINDINGS: Vascular: Suboptimal bolus timing limits evaluation for distal pulmonary emboli. The visualized main and proximal pulmonary arteries are patent without filling defect. There is calcified and noncalcified plaque seen throughout the thoracic and visualized upper abdominal aorta. There is approximately 50% stenosis of the infrarenal abdominal aorta. No aneurysm or dissection. Thyroid: The thyroid is normal. Mediastinum: Heart size is normal without significant pericardial effusion. There are multiple enlarged mediastinal lymph nodes which may be centrally necrotic and measure up to 2.7 cm in short axis. Lungs and airways: There are background emphysematous changes of the lungs. Patchy consolidation is seen throughout the left upper lobe. There are a few scattered bilateral pulmonary nodules with irregular appearance and measure up to 1.0 in the right upper lobe. No pneumothorax. There are a few scattered calcified granulomas present. There is a left pleural effusion. There is soft tissue fullness within the left hilum. The airways are normal. Upper abdomen: The subphrenic structures are normal. Musculoskeletal: Compression deformity of the T9 vertebral body. No suspicious osseous lesion. IMPRESSION: 1. Suboptimal evaluation for pulmonary emboli secondary to bolus timing. No obvious pulmonary emboli are seen. 2. Atherosclerosis with up to 50% stenosis of the infrarenal abdominal aorta. No aneurysm or dissection. 3. Multiple enlarged mediastinal lymph nodes are highly concerning for neoplastic process such as metastatic disease or lymphoma. 4. Prominent soft tissue within the left perihilum which could represent additional soniya metastasis versus primary lung cancer. 5. Patchy consolidation seen throughout the left lung concerning for superimposed pneumonia. 6. Scattered bilateral pulmonary nodules measuring up to 1.0 cm which could represent additional foci of infection versus pulmonary metastatic disease. 7. COPD. Critical finding. Results communicated to Dr. Matthews by Dr. Gigi Moon at 9:36 PM on 02/15/2022. Dictated on workstation # [id number] Departure Impression Primary Impression: Pulmonary edema Qualified Codes: J81.0 - Acute pulmonary edema Additional Impressions: Pneumonia of left upper lobe due to Chlamydia species Lung cancer Qualified Codes: C34.90 - Malignant neoplasm of unspecified part of unspecified bronchus or lung Disposition: 30 STILL A PATIENT Condition: Stable Admissions Decision to Admit Reason: Admit from ER (General) Decision to Admit/Date: February 15, 2022 Time/Decision to Admit Time: 21:40 Transfer Transfer Reason: Exceeds level of care Time Spoke to Accepting Phy: 21:59 Transfer Progress Notes Discussed with Dr Holden and accepted to ICU Obs Transfer Facility: [facility] Method of Transfer: EMS Departure-Patient Inst. Referrals: NO,LOCAL PHYSICIAN (PCP) Primary Care Physician SANDRA MARTINS (Family) Primary Care Physician VÍCTOR MATTHEWS MD February 15, 2022 22:00
[2022-02-16] MEDS ORDERED: RT-IPRATROPIUM (ATROVENT) 0.5MG/2.5ML AMP IH PRN ×2 (00:30→07:15)
[2022-02-16] MEDS: CEFEPIME 1,000 MG/NS 50 ML IVPB IV SCH ×6 (03:41→17:23)
[2022-02-16 04:44] LABS: BASOPHILS % (AUTO) 0 % (0-10); EOSINOPHILS % (AUTO) 0 % (0-10); HEMATOCRIT 45 % (40-54); HEMOGLOBIN 14.3 g/dL (13.3-17.7); LYMPHOCYTES # (AUTO) 0.2 10^3/uL (1.0-4.0); LYMPHOCYTES % (AUTO) 4 % (12-44); MEAN CORPUSCULAR HEMOGLOBIN 28 pg (25-34); MEAN CORPUSCULAR HGB CONC 32 g/dL (32-36); MEAN CORPUSCULAR VOLUME 87 fL (80-99); MEAN PLATELET VOLUME 9.8 fL (9.0-12.2); MONOCYTES # (AUTO) 0.1 10^3/uL (0.0-1.0); MONOCYTES % (AUTO) 1 % (0-12); NEUTROPHILS # (AUTO) 4.9 10^3/uL (1.8-7.8); NEUTROPHILS % (AUTO) 94 % (42-75); PLATELET COUNT 286 10^3/uL (130-400); WHITE BLOOD COUNT 5.3 10^3/uL (4.3-11.0)
[2022-02-16 05:14] LABS: ALBUMIN 4.1 GM/DL (3.2-4.5); POTASSIUM 4.2 MMOL/L (3.6-5.0)
[2022-02-16 05:15] LABS: BAND NEUTROPHILS 1 %; BASOPHILS % (MANUAL) 0 %; CALCIUM 9.4 MG/DL (8.5-10.1); EOSINOPHILS % (MANUAL) 0 %; LYMPHOCYTES % (MANUAL) 4 %; MONOCYTES % (MANUAL) 1 %; NEUTROPHILS % (MANUAL) 94 %; RBC MORPH NORMAL
[2022-02-16 05:17] LABS: TOTAL PROTEIN 7.9 GM/DL (6.4-8.2)
[2022-02-16 05:18] LABS: BILIRUBIN,TOTAL 0.5 MG/DL (0.1-1.0)
[2022-02-16 05:20] LABS: CREATININE SERUM 1.18 MG/DL (0.60-1.30); PHOSPHORUS 3.2 MG/DL (2.3-4.7)
[2022-02-16 05:23] LABS: MAGNESIUM 2.1 MG/DL (1.6-2.4)
[2022-02-16] MEDS: POTASSIUM CL 10MEQ/50ML IVPB 50 ML IV SCH (05:38)
[2022-02-16] MEDS: KCL 20 MEQ TAB (K-DUR) PO SCH (05:38)
[2022-02-16] MEDS: MAGNESIUM 1 GM/100 ML IVPB 100 ML IV SCH (05:38)
[2022-02-16] MEDS: FUROSEMIDE 40 MG/4 ML INJ (LASIX) IV SCH (06:40)
[2022-02-16 07:03] VITALS: BP 126/71
--- NOTE | 2022-02-16 10:19 | History & Physical-Hospitalist ---
History of Present Illness HPI/Chief Complaint Patient is an 81-year-old male with past medical history of COPD and tobacco abuse who presented to the emergency department due to shortness of breath. He states that he got up to transfer from his chair and after just 3-4 steps he became very short of breath. He tried taking his inhalers at home but this did not help. This is around 6:30 PM last night so he called his to summon EMS. When EMS arrived his oxygen saturations were around 80% and he was placed on supplemental oxygen at 6 L to get him into the 90s. Per ER he was gurgling on arrival and was given IV Lasix immediately. Symptoms improved drastically with this. He was admitted for continued therapy. Of note he did have an elevated D-dimer so a CTA of his chest was performed which showed no obvious PE but suboptimal timing more concerning though was adenopathy and a prominent soft tissue in the left perihilum concerning for primary lung cancer or metastatic disease. Date Seen 02/16/22 Time Seen by a Provider: 09:00 Attending Physician No,Local Physician PCP Admitting Physician: Kimberly Fountain MD Attending Physician: Kimberly Fountain MD Referring Physician Date of Admission February 15, 2022 at 23:39 Home Medications & Allergies Home Medications Reviewed patient Home Medication Reconciliation performed by pharmacy medication reconciliations metallurgical lab technician and/or nursing. Patients Allergies have been reviewed. Allergies Allergies Coded Allergies albuterol (Verified Adverse Reaction, Mild, 02/15/22) Past Vzznych-Gqwcnw-Unupua Hx Patient Social History Marrital Status: Employed/Student: retired Tobacco Use?: No Smoking Status: Former Smoker Use of E-Cig and/or Vaping dev: No Substance use?: No Alcohol Use?: No Pt feels they are or have been: No Current Status Advance Directives: No Communicates: Verbally Primary Language: Burundian Preferred Spoken Language: Burundian Is interpretation needed?: No Sensory deficits: Hearing impairment Past Medical History COPD Family Medical History Reviewed Nursing Family Hx No Pertinent Family Hx Review of Systems Constitutional: No chills, No fever; weight loss EENTM: no symptoms reported Respiratory: see HPI Cardiovascular: No chest pain, No edema, No palpitations Gastrointestinal: No abdominal pain, No constipation; loss of appetite; No nausea, No vomiting Genitourinary: no symptoms reported Musculoskeletal: no symptoms reported Skin: no symptoms reported Psychiatric/Neurological: No Symptoms Reported Physical Exam Physical Exam Vital Signs Vital Signs - First Documented 02/15/22 02/15/22 20:05 22:31 Temp 37.2 Pulse 116 Resp 20 B/P (MAP) 162/81 (108) Pulse Ox 94 O2 Delivery Nasal Cannula O2 Flow Rate 5.00 Capillary Refill : Less Than 3 Seconds Height, Weight, BMI Height: '" Weight: lbs. oz. kg; 113.17 BMI Method: General Appearance: No Apparent Distress, Chronically ill HEENT: PERRL/EOMI, Moist Mucous Membranes; No Scleral Icterus (L), No Scleral Icterus (R) Neck: Normal Inspection, Supple Respiratory: Lungs Clear Cardiovascular: Regular Rate, Rhythm, No JVD, No Murmur Gastrointestinal: Normal Bowel Sounds, Non Tender, Soft; No Distended Extremity: Normal Capillary Refill, No Calf Tenderness, No Pedal Edema Neurologic/Psychiatric: Alert, Oriented x3, Normal Mood/Affect Skin: Normal Color, Warm/Dry, Tattoos/Piercings Results Results/Procedures Labs Laboratory Tests 02/15/22 20:06 02/16/22 04:20 Patient resulted labs reviewed. Imaging: Reviewed Imaging Report Imaging [facility], [place] NAME: KARYN ZAPATA [facility] REC#: [id number] PT STATUS: REG ER : 1940 PHYSICIAN: VÍCTOR MATTHEWS MD ADMIT DATE: 02/15/22/ER FS Signed Date of Exam:02/15/22 CHEST 1 VIEW AP/PA ONLY EXAMINATION: Chest 1 view. HISTORY: SOB. COMPARISON: None available. FINDINGS: Heart size and pulmonary vasculature are normal. Patchy interstitial opacities seen throughout the left lung. No pleural effusion or pneumothorax. The right costophrenic angle is not entirely visualized. Right axillary surgical clips are present. The osseous structures are intact. IMPRESSION: Patchy interstitial opacities seen throughout the left lung concerning for pneumonia. Dictated by: Dictated on workstation # [id number] Dict: 02/15/222022 Trans: 02/15/222106 [facility] [id number] Interpreted by: PIPO MOON DO Electronically signed by: PIPO MOON DO 02/15/222106 [facility] [place], [place] NAME: KARYN ZAPATA [facility] REC#: [id number] PT STATUS: REG ER : 1940 PHYSICIAN: VÍCTOR MATTHEWS MD ADMIT DATE: 02/15/22/ER FS Signed Date of Exam:02/15/22 CT ANGIO CHEST W EXAMINATION: CT angiography of the chest. TECHNIQUE: Contrast enhanced thin section helical images were obtained through the chest with intravenous contrast timed for the optimal opacification of the arterial structures per CTA protocol. Post-processing, reconstructions and interpretation of angiographic images of the vessels was performed. 3D MIP reconstructions were performed and reviewed. All CT scans use one or more of the following dose optimizing techniques: automated exposure control, MA and/or KvP adjustment based on patient size and exam type or iterative reconstruction. HISTORY: Elevated d-dimer. COMPARISON: None available. FINDINGS: Vascular: Suboptimal bolus timing limits evaluation for distal pulmonary emboli. The visualized main and proximal pulmonary arteries are patent without filling defect. There is calcified and noncalcified plaque seen throughout the thoracic and visualized upper abdominal aorta. There is approximately 50% stenosis of the infrarenal abdominal aorta. No aneurysm or dissection. Thyroid: The thyroid is normal. Mediastinum: Heart size is normal without significant pericardial effusion. There are multiple enlarged mediastinal lymph nodes which may be centrally necrotic and measure up to 2.7 cm in short axis. Lungs and airways: There are background emphysematous changes of the lungs. Patchy consolidation is seen throughout the left upper lobe. There are a few scattered bilateral pulmonary nodules with irregular appearance and measure up to 1.0 in the right upper lobe. No pneumothorax. There are a few scattered calcified granulomas present. There is a left pleural effusion. There is soft tissue fullness within the left hilum. The airways are normal. Upper abdomen: The subphrenic structures are normal. Musculoskeletal: Compression deformity of the T9 vertebral body. No suspicious osseous lesion. IMPRESSION: 1. Suboptimal evaluation for pulmonary emboli secondary to bolus timing. No obvious pulmonary emboli are seen. 2. Atherosclerosis with up to 50% stenosis of the infrarenal abdominal aorta. No aneurysm or dissection. 3. Multiple enlarged mediastinal lymph nodes are highly concerning for neoplastic process such as metastatic disease or lymphoma. 4. Prominent soft tissue within the left perihilum which could represent additional soniya metastasis versus primary lung cancer. 5. Patchy consolidation seen throughout the left lung concerning for superimposed pneumonia. 6. Scattered bilateral pulmonary nodules measuring up to 1.0 cm which could represent additional foci of infection versus pulmonary metastatic disease. 7. COPD. Critical finding. Results communicated to Dr. Matthews by Dr. Gigi Moon at 9:36 PM on 02/15/2022. Dictated by: Dictated on workstation # [id number] Dict: 02/15/222128 Trans: 02/15/222199 [facility] [id number] Interpreted by: PIPO MOON DO Electronically signed by: PIPO MOON DO 02/15/222199 Assessment/Plan Admission Diagnosis Acute hypoxic respiratory failure Admission Status: Inpatient Order (span 2 midnights) Reason for Inpatient Admission: see below Assessment and Plan Acute hypoxic respiratory failure Presumed flash pulmonary edema Pneumonia COPD Soft tissue mass in left lung concerning for neoplasm Continue on Lasix Echo ordered Wean oxygen to keep sats >90 Oncology consulted for tomorrow IR consult placed for tomorrow for possible CT guided biopsy Continue on IV abx for pneumonia No evidence of sepsis DVT ppx: Lovenox Diagnosis/Problems Diagnosis/Problems (1) Acute respiratory failure Qualifiers: Respiratory failure complication: hypoxia Qualified Codes: J96.01 - Acute respiratory failure with hypoxia (2) CAP (community acquired pneumonia) Qualifiers: Laterality: left Lung location: upper lobe of lung Qualified Codes: J18.9 - Pneumonia, unspecified organism (3) Lung cancer Status: Acute Qualifiers: Laterality: unspecified laterality Lung location: unspecified part of lung Qualified Codes: C34.90 - Malignant neoplasm of unspecified part of unspecified bronchus or lung (4) Pulmonary edema Status: Acute Qualifiers: Chronicity: acute Qualified Codes: J81.0 - Acute pulmonary edema KIMBERLY FOUNTAIN MD February 16, 2022 10:18
[2022-02-16] MEDS: RT-IPRATROPIUM (ATROVENT) 0.5MG/2.5ML AMP IH SCH ×4 (10:25→21:34)
[2022-02-16] MEDS ORDERED: CEPACOL SORE THROAT-COUGH LOZENGE PO PRN (10:30)
[2022-02-16] MEDS: ENOXAPARIN 40 MG/0.4 ML (LOVENOX) SYR SQ SCH (11:30)
[2022-02-16] MEDS ORDERED: CHLORASEPTIC LOZENGE MM PRN (12:45)
[2022-02-16] MEDS ORDERED: NS (IVPB) 0 ML ONE (17:18)
[2022-02-17] MEDS: CEFEPIME 1,000 MG/NS 50 ML IVPB IV SCH ×6 (00:55→16:19)
[2022-02-17] MEDS: RT-IPRATROPIUM (ATROVENT) 0.5MG/2.5ML AMP IH SCH ×6 (02:25→22:00)
[2022-02-17 05:58] LABS: BASOPHILS # (AUTO) 0.1 10^3/uL (0.0-0.1); BASOPHILS % (AUTO) 1 % (0-10); EOSINOPHILS # (AUTO) 0.2 10^3/uL (0.0-0.3); EOSINOPHILS % (AUTO) 3 % (0-10); HEMATOCRIT 44 % (40-54); HEMOGLOBIN 14.2 g/dL (13.3-17.7); LYMPHOCYTES # (AUTO) 0.8 10^3/uL (1.0-4.0); LYMPHOCYTES % (AUTO) 9 % (12-44); MEAN CORPUSCULAR HEMOGLOBIN 28 pg (25-34); MEAN CORPUSCULAR HGB CONC 32 g/dL (32-36); MEAN CORPUSCULAR VOLUME 88 fL (80-99); MEAN PLATELET VOLUME 9.3 fL (9.0-12.2); MONOCYTES % (AUTO) 11 % (0-12); NEUTROPHILS # (AUTO) 7.3 10^3/uL (1.8-7.8); NEUTROPHILS % (AUTO) 77 % (42-75); PLATELET COUNT 294 10^3/uL (130-400); WHITE BLOOD COUNT 9.4 10^3/uL (4.3-11.0)
[2022-02-17 06:18] LABS: BILIRUBIN,TOTAL 0.4 MG/DL (0.1-1.0); CALCIUM 9.2 MG/DL (8.5-10.1); CREATININE SERUM 1.35 MG/DL (0.60-1.30); MAGNESIUM 2.1 MG/DL (1.6-2.4); PHOSPHORUS 3.4 MG/DL (2.3-4.7); POTASSIUM 3.6 MMOL/L (3.6-5.0); TOTAL PROTEIN 7.2 GM/DL (6.4-8.2)
[2022-02-17] MEDS: MAGNESIUM 1 GM/100 ML IVPB 100 ML IV SCH (06:28)
[2022-02-17] MEDS: POTASSIUM CL 10MEQ/50ML IVPB 50 ML IV SCH (06:29)
[2022-02-17] MEDS: KCL 20 MEQ TAB (K-DUR) PO SCH (06:32)
[2022-02-17] MEDS: FUROSEMIDE 40 MG/4 ML INJ (LASIX) IV SCH (06:41)
[2022-02-17] MEDS ORDERED: KCL 20 MEQ TAB (K-DUR) PO NR (09:00)
[2022-02-17] MEDS: ENOXAPARIN 40 MG/0.4 ML (LOVENOX) SYR SQ SCH (10:23)
--- NOTE | 2022-02-17 10:44 | Diagnostic Imaging Report ---
INDICATION: Pleural effusion. Sonographic interrogation of the left chest was performed. There is a small left pleural effusion. IMPRESSION: Small left effusion. Dictated by: Dictated on workstation # [id number]
[2022-02-17] MEDS ORDERED: fentaNYL INJ 100 MCG/2 ML AMP IVP ONE (13:30)
[2022-02-17] MEDS ORDERED: LIDOCAINE 1% INJ 20 ML VIAL INJ ONE (15:15)
[2022-02-17] MEDS ORDERED: MULT-422 PO (15:46)
[2022-02-17] MEDS ORDERED: BUDE10.7 IH (15:46)
[2022-02-17] MEDS ORDERED: ASPI-1238 PO (15:46)
[2022-02-17] MEDS ORDERED: PANT40TA52 PO (15:46)
[2022-02-17] MEDS ORDERED: ASCO-262 PO (15:46)
[2022-02-17] MEDS ORDERED: EPIN11.7 IH (15:46)
[2022-02-17] MEDS ORDERED: FERR324T4 PO (15:46)
[2022-02-17] MEDS ORDERED: SENN-234 PO (15:46)
[2022-02-17] MEDS ORDERED: IPRA4AER IH (15:46)
--- NOTE | 2022-02-17 17:30 | Diagnostic Imaging Report ---
INDICATION: Left-sided pleural effusion. PROCEDURE: The patient presents for CT-guided pleural fluid aspiration. TECHNIQUE: All CT scans use one or more of the following dose optimizing techniques: automated exposure control, MA and/or KvP adjustment based on patient size and exam type or iterative reconstruction. The patient was brought to the CT suite and placed on the table in the supine position. Axial imaging through the chest was performed to evaluate appropriate entry site. Lower left lateral chest was prepped and draped in the usual sterile fashion. A small amount of 1% lidocaine was utilized for local anesthesia. A Garrett catheter was advanced from a lateral approach and placed with its tip in the posterior pleural space in the left lung base. Approximately 80 mL of red-tinged serous fluid was removed. The needle was removed and hemostasis was obtained using manual compression. The patient tolerated the procedure well and left the department in stable condition. Fluid will be sent to the lab for cytology testing. IMPRESSION: Successful CT-guided left pleural fluid aspiration, as described. Cytology results are currently pending. Dictated by: Dictated on workstation # [id number]
--- NOTE | 2022-02-17 19:05 | Progress Note - Hospitalist ---
Subjective HPI/CC On Admission Date Seen by Provider: February 17, 2022 Time Seen by Provider: 10:45 Patient is an 81-year-old male with past medical history of COPD and tobacco abuse who presented to the emergency department due to shortness of breath. He states that he got up to transfer from his chair and after just 3-4 steps he became very short of breath. He tried taking his inhalers at home but this did not help. This is around 6:30 PM last night so he called his to [facility]. When EMS arrived his oxygen saturations were around 80% and he was placed on supplemental oxygen at 6 L to get him into the 90s. Per ER he was gurgling on arrival and was given IV Lasix immediately. Symptoms improved drastically with this. He was admitted for continued therapy. Of note he did have an elevated D-dimer so a CTA of his chest was performed which showed no obvious PE but suboptimal timing more concerning though was adenopathy and a prominent soft tissue in the left perihilum concerning for primary lung cancer or metastatic disease. Subjective/Events-last exam He is still short of breath. He is coughing up phlegm. He feels weak. He would want to consider treatment if he does have cancer, so we will proceed with further evaluation. Focused Exam Lactate Level 02/15/22 21:00: Lactic Acid Level 1.02 Objective Exam Vital Signs Vital Signs Date Time Temp Pulse Resp B/P (MAP) Pulse Ox O2 Delivery O2 Flow Rate FiO2 02/17/22 19:46 36.3 98 18 150/71 96 Nasal Cannula 3.00 Capillary Refill : Less Than 3 Seconds General Appearance: No Apparent Distress, WD/WN Respiratory: No Respiratory Distress, Decreased Breath Sounds Cardiovascular: Regular Rate, Rhythm, No Edema, No Murmur Gastrointestinal: Normal Bowel Sounds, Non Tender, Soft Extremity: Normal Inspection, No Pedal Edema Neurologic/Psychiatric: Alert, Normal Mood/Affect Skin: Normal Color, Warm/Dry Results/Procedures Lab Laboratory Tests 02/17/22 05:47 Patient resulted labs reviewed. 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 Continue IV antibiotics for pneumonia DVT ppx: Lovenox Diagnosis/Problems Diagnosis/Problems (1) Acute respiratory failure Status: Acute Qualifiers: Respiratory failure complication: hypoxia Qualified Codes: J96.01 - Acute respiratory failure with hypoxia (2) CAP (community acquired pneumonia) Status: Acute Qualifiers: Laterality: left Lung location: upper lobe of lung Qualified Codes: J18.9 - Pneumonia, unspecified organism (3) Pulmonary edema Status: Acute Qualifiers: Chronicity: acute Qualified Codes: J81.0 - Acute pulmonary edema (4) Lung mass Status: Acute ESAU SMITH MD February 17, 2022 19:05
[2022-02-17] MEDS ORDERED: ALBUTEROL/IPRATROP (COMBIVENT RESPIMAT) 4 GM INHALER IH PRN (21:00)
[2022-02-17] MEDS ORDERED: [UNRECOGNIZED DRUG - REMARK] IH PRN (21:00)
--- NOTE | 2022-02-17 21:51 | Consultation - Surgery ---
History of Present Illness History of Present Illness Patient Consulted On(asha/time) 02/17/22 11:46 Date Seen by Provider: February 17, 2022 Time Seen by Provider: 11:46 History of Present Illness Consult requested by Dr. Cotton for possible left thoracentesis. Patient is 81-year-old male presenting with shortness of breath to the hospital. Patient states that activity will make it worse. Nothing seems to make it better. He states he is probably at his baseline. Patient states at home he does have to use a walker but does have increasing shortness of breath with more activity. This was just worsening so he seeks medical attention. Patient had a CT scan demonstrating left pleural effusion and mediastinal disease as suggestive of cancer. There appears to be possible left pleural metastasis as well. I have been asked to evaluate for possible thoracentesis to obtain fluid for cytology and further evaluation. Allergies and Home Medications Allergies Coded Allergies: albuterol (Verified Adverse Reaction, Mild, 02/16/22) Only nebulized, tolerates albuterol from inhaler without issue Patient Home Medication List Home Medication List Reviewed: Yes Albuterol/Ipratropium (Combivent Respimat Inhal [place]) 20 Mcg-100 Mcg/Actuation Aero, 1 PUFF IH QID PRN for SHORTNESS OF BREATH, (Reported) Entered as Reported by: AMBROSIO CONNER on 02/17/221545 Last Action: Reviewed Ascorbate Calcium (Vitamin C) 500 Mg Tablet, 500 MG PO DAILY, (Reported) Entered as Reported by: AMBROSIO CONNER on 02/17/221545 Last Action: Reviewed Aspirin (Aspirin EC) 81 Mg Tablet.dr, 81 MG PO DAILY, (Reported) Entered as Reported by: AMBROSIO CONNER on 02/17/221545 Last Action: Reviewed Budesonide/Glycopyr/Formoterol (Breztri Aerosphere Inhaler) 160 Mcg-9 Mcg-4.8 Mcg/Actuation Hfa.aer.ad, 2 PUFF IH BID, (Reported) Entered as Reported by: AMBROSIO CONNER on 02/17/221545 Last Action: Reviewed Epinephrine (Primatene Mist) 0.125 Mg/Actuation Hfa.aer.ad, 1-2 PUFF IH UD PRN for SHORTNESS OF BREATH, (Reported) Entered as Reported by: AMBROSIO CONNER on 02/17/221545 Last Action: Reviewed Ferrous Sulfate (Ferrous Sulfate) 324 Mg (65 Mg Iron) Tablet., 324 MG PO DAILY, (Reported) Entered as Reported by: AMBROSIO CONNER on 02/17/221545 Last Action: Reviewed Multivitamin with Minerals (One Daily Plus Minerals) 1 Each Tablet, 1 EACH PO DAILY, (Reported) Entered as Reported by: AMBROSIO CONNER on 02/17/221545 Last Action: Reviewed Pantoprazole Sodium (Pantoprazole Sodium) 40 Mg Tablet., 40 MG PO DAILY, (Reported) Entered as Reported by: AMBROSIO CONNER on 02/17/221545 Last Action: Reviewed Sennosides (Senna) 8.6 Mg Tablet, 8.6 MG PO BID, (Reported) Entered as Reported by: AMBROSIO CONNER on 02/17/221545 Last Action: Reviewed Past Imqftzl-Jvkrka-Qzwikr Hx Patient Social History Smoking Status: Former Smoker Alcohol Use?: No Have you traveled recently?: No Surgeries History of Surgeries: Yes (Vascular bypass right axillary to lower extremity) Respiratory Respiratory Disorders: COPD Family Medical History Significant Family History: No Pertinent Family Hx Review of Systems-General Constitutional: No diaphoresis; weakness EENTM: No blurred vision, No double vision Respiratory: dyspnea on exertion, short of breath Cardiovascular: No chest pain, No palpitations Gastrointestinal: No abdominal pain, No nausea, No vomiting Genitourinary: No decreased output, No discharge Musculoskeletal: No back pain, No joint pain Skin: No change in color Psychiatric/Neurological: Denies Anxiety, Denies Depressed, Denies Emotional Problems All Other Systems Reviewed Negative Unless Noted: Yes (Negative excepted noted.) Physical Exam-General Problems Physical Exam Vital Signs Vital Signs - First Documented 02/15/22 02/15/22 20:05 22:31 Temp 37.2 Pulse 116 Resp 20 B/P (MAP) 162/81 (108) Pulse Ox 94 O2 Delivery Nasal Cannula O2 Flow Rate 5.00 Capillary Refill : Less Than 3 Seconds General Appearance: no apparent distress HEENT: PERRL/EOMI, normal ENT inspection Neck: non-tender, supple Respiratory: chest non-tender, no respiratory distress, no accessory muscle use Cardiovascular: regular rate, rhythm, no JVD Gastrointestinal: non tender, soft, other (Palpable bypass on right side of abdomen) Rectal: deferred Back: no CVA tenderness, no vertebral tenderness Extremities: non-tender, normal inspection Neurologic/Psychiatric: alert, normal mood/affect, oriented x 3 Skin: normal color, warm/dry Lymphatic: no adenopathy Data Review Labs Laboratory Tests 02/17/22 05:47: White Blood Count 9.4, Red Blood Count 5.03, Hemoglobin 14.2, Hematocrit 44, Mean Corpuscular Volume 88, Mean Corpuscular Hemoglobin 28, Mean Corpuscular Hemoglobin Concent 32, Red Cell Distribution Width 14.4, Platelet Count 294, Mean Platelet Volume 9.3, Immature Granulocyte % (Auto) 1, Neutrophils (%) (Auto) 77H, Lymphocytes (%) (Auto) 9L, Monocytes (%) (Auto) 11, Eosinophils (%) (Auto) 3, Basophils (%) (Auto) 1, Neutrophils # (Auto) 7.3, Lymphocytes # (Auto) 0.8L, Monocytes # (Auto) 1.0, Eosinophils # (Auto) 0.2, Basophils # (Auto) 0.1, Immature Granulocyte # (Auto) 0.1, Sodium Level 140, Potassium Level 3.6, Chloride Level 102, Carbon Dioxide Level 23, Anion Gap 15H, Blood Urea Nitrogen 20H, Creatinine 1.35H, Estimat Glomerular Filtration Rate 53, BUN/Creatinine Ratio 15, Glucose Level 108H, Calcium Level 9.2, Corrected Calcium 9.2, Phosphorus Level 3.4, Magnesium Level 2.1, Total Bilirubin 0.4, Aspartate Amino Transf (AST/SGOT) 26, Alanine Aminotransferase (ALT/SGPT) 14, Alkaline Phosphatase 77, Total Protein 7.2, Albumin 4.0 Microbiology 02/15/22 Blood Culture - Preliminary, Resulted No growth Assessment/Plan Assessment/Plan Assessment/Plan Left pleural effusion Mediastinal nodules/mass Acute respiratory failure Patient breathing slightly improved from his admission he states. Patient with ultrasound today to further evaluate whether or not there is a drainable amount of fluid. There is not a significant mount of fluid to have thoracentesis performed. I discussed with Dr. Spencer who will do CT-guided drainage for sampling of fluid. Suspect this is possibly metastatic effusion. Await cytology results. Further way of working this up would be an EBUS which we do not have available here but this would further work-up and allow biopsy. MUKESH HO DO February 17, 2022 21:51
[2022-02-17] MEDS: HYDROcodone/APAP 5 MG/325 MG (LORTAB) TAB PO PRN (22:11)
[2022-02-17] MEDS ORDERED: PATIENT MAY USE OWN MED,SINGLE MED PO SCH (22:45)
[2022-02-18] MEDS: CEFEPIME 1,000 MG/NS 50 ML IVPB IV SCH ×4 (00:05→08:04)
[2022-02-18 05:29] LABS: EOSINOPHILS % (AUTO) 5 % (0-10)
[2022-02-18 05:31] LABS: BASOPHILS # (AUTO) 0.1 10^3/uL (0.0-0.1); BASOPHILS % (AUTO) 1 % (0-10); EOSINOPHILS # (AUTO) 0.4 10^3/uL (0.0-0.3); HEMATOCRIT 46 % (40-54); HEMOGLOBIN 14.5 g/dL (13.3-17.7); LYMPHOCYTES # (AUTO) 0.8 10^3/uL (1.0-4.0); LYMPHOCYTES % (AUTO) 10 % (12-44); MEAN CORPUSCULAR HEMOGLOBIN 28 pg (25-34); MEAN CORPUSCULAR HGB CONC 32 g/dL (32-36); MEAN CORPUSCULAR VOLUME 88 fL (80-99); MEAN PLATELET VOLUME 9.8 fL (9.0-12.2); MONOCYTES # (AUTO) 0.9 10^3/uL (0.0-1.0); MONOCYTES % (AUTO) 12 % (0-12); NEUTROPHILS # (AUTO) 5.1 10^3/uL (1.8-7.8); NEUTROPHILS % (AUTO) 71 % (42-75); PLATELET COUNT 216 10^3/uL (130-400); WHITE BLOOD COUNT 7.2 10^3/uL (4.3-11.0)
[2022-02-18 05:40] LABS: POTASSIUM 4.1 MMOL/L (3.6-5.0)
[2022-02-18 05:41] LABS: CALCIUM 9.1 MG/DL (8.5-10.1)
[2022-02-18 05:43] LABS: TOTAL PROTEIN 7.5 GM/DL (6.4-8.2)
[2022-02-18 05:44] LABS: BILIRUBIN,TOTAL 0.7 MG/DL (0.1-1.0)
[2022-02-18 05:46] LABS: CREATININE SERUM 1.14 MG/DL (0.60-1.30); PHOSPHORUS 2.9 MG/DL (2.3-4.7)
[2022-02-18] MEDS: KCL 20 MEQ TAB (K-DUR) PO SCH (05:58)
[2022-02-18] MEDS: MAGNESIUM 1 GM/100 ML IVPB 100 ML IV SCH (05:58)
[2022-02-18] MEDS: POTASSIUM CL 10MEQ/50ML IVPB 50 ML IV SCH (05:58)
[2022-02-18] MEDS: FUROSEMIDE 40 MG/4 ML INJ (LASIX) IV SCH (06:50)
[2022-02-18] MEDS ORDERED: NON-FORM (Breztri Aerosphere Inhaler) IH SCH (09:00)
--- NOTE | 2022-02-18 09:34 | Physical Therapy Evaluation ---
PT Evaluation-General Medical Diagnosis Admission Date February 16, 2022 at 11:31 Medical Diagnosis: lung cancer/pneumonia Onset Date: February 16, 2022 Therapy Diagnosis Therapy Diagnosis: debility/weakness Precautions Precautions/Isolations: Fall Prevention, Standard Precautions Referral Physician: Julia Reason for Referral: Evaluation/Treatment Medical History Pertinent Medical History: COPD, Smoking Current History EMS secondary to SOA Reviewed History: Yes Social History Home: Apartment Current Living Status: Alone Entry Into Home: Level Entry Prior Prior Level of Function SCALE: Activities may be completed with or without assistive devices. 6-Mtspybusxb-qaxpnke completes the activity by him/herself with no assistance from a helper. 5-Set-up or Clean-up Assistance-helper sets up or cleans up; patient completes activity. [place] assists only prior to or following the activity. 4-Supervision or Touching Assistance-helper provides verbal cues and/or touching/steadying and/or contact guard assistance as patient completes activity. Assistance may be provided throughout the activity or intermittently. 3-Partial/Moderate Assistance-helper does LESS THAN HALF the effort. [place] lifts, holds or supports trunk or limbs, but provides less than half the effort. 2-Substantial/Maximal Assistance-helper does MORE THAN HALF the effort. [place] lifts or holds trunk or limbs and provides more than half the effort. 6-Wjlgfndzm-nbcjys does ALL the effort. Patient does none of the effort to compl ete the activity. Or, the assistance of 2 or more helpers is required for the patient to complete the activity. If activity was not attempted, code reason: 7-Patient Refused. 9-Not Applicable-not attempted and the patient did not perform the activity before the current illness, exacerbation or injury. 10-Not Attempted due to Environmental Limitations-(lack of equipment, weather restraints, etc.). 88-Not Attempted due to Medical Conditions or Safety Concerns. Bed Mobility: 6 Transfers (B,C,W/C): 6 Gait: 6 Stairs: 9 Wheelchair Mobility: 6 Indoor Mobility (Ambulation): Independent Stairs: Not Applicalbe Prior Devices Use: Manual wheelchair, Walker patient reports he utilizes his w/c for distances greater than 50'. has a 4WW he utilizes for short distances in home PT Evaluation-Current Subjective Patient agrees to PT. Refuses to use a FWW for ambulation. Will use his w/c to push and walk a short distance. Objective Patient Orientation: Normal For Age Attachments: Oxygen, IV ROM/Strength ROM Lower Extremities bilateral LE WFL Strength Lower Extremities 4-/5 grossly bilateral LE Integumentary/Posture Bowel Incontinence: No Bladder Incontinence: No Posture slightly kyphotic Neuromuscular (Tone, Coordination, Reflexes) grossly intact Sensory Vision: Functional Hearing: Functional Transfers Roll Left to Right (QC): 6 Lying to Sitting/Side of Bed(Q: 6 Sit to Stand (QC): 4 Chair/Wob-pa-Lskzx Xfer(QC): 4 Gait Does the Patient Walk?: Yes Mode of Locomotion: Both Anticipated Mode of Locomotion: Both Walk 10 feet (QC): 4 Distance: 25' Comments/Gait Description pushed w/c Balance Sitting Static: Normal Sitting Dynamic: Normal Standing Static: Fair Standing Dynamic: Fair Assessment/Needs Patient does self limit and performs activity on his own terms. Patient is currently SBA with upright mobility for safety. Patient up in recliner with needs met. Rehab Potential: Guarded Post Rehab Potential-Barriers: compliance PT Longterm Goals Longterm Goals PT Clinical Athletic Instructor Goals Time Frame: Mar 01, 2022 Roll Left & Right (QC): 6 Sit to Lying (QC): 6 Lying-Sitting on Side/Bed(QC): 6 Sit to Stand (QC): 6 Chair/Vbu-cy-Dwikj Xfer(QC): 6 Toilet Transfer (QC): 6 Walk 10 feet (QC): 6 Walk 50ft with 2 Turns (QC): 6 Wheel 50 feet with 2 turns (QC: 6 Type: Manual Wheel 150 feet: 6 Type: Manual PT Plan Problem List Problem List: Activity Tolerance, Functional Strength, Safety, Balance, Gait, Transfer Treatment/Plan Treatment Plan: Continue Plan of Care Treatment Plan: Education, Functional Activity Martin, Functional Strength, Gait, Safety, Therapeutic Exercise, Transfers Treatment Duration: Mar 01, 2022 Frequency: 6 times per week Estimated Hrs Per Day: .25 hour per day Patient and/or Family Agrees t: Yes Time/GCodes Time In: 846 Time Out: 900 Total Billed Treatment Time: 14 Total Billed Treatment 1 visit EVModC 14 min ALYSSA DUGAN PT February 18, 2022 09:34
[2022-02-18] MEDS: HYDROcodone/APAP 5 MG/325 MG (LORTAB) TAB PO PRN (11:39)
[2022-02-18] MEDS: ENOXAPARIN 40 MG/0.4 ML (LOVENOX) SYR SQ SCH (11:39)
[2022-02-18] MEDS ORDERED: CEFD300C3 PO (12:05)
[2022-02-18] MEDS ORDERED: PRED10TA22 PO (12:05)
--- NOTE | 2022-02-18 16:39 | Progress Note - Surgery ---
Subjective Date Seen by a Provider: February 18, 2022 Time Seen by a Provider: 15:31 Subjective/Events-last exam Breathing back to baseline. Feeling better overall. Having the fluid drained did cause him discomfort but now better. Going home. No new complaints. Denies fever sweats chills shortness of breath or chest pain. Focused Exam Lactate Level 02/15/22 21:00: Lactic Acid Level 1.02 Objective Exam Vital Signs Date Time Temp Pulse Resp B/P (MAP) Pulse Ox O2 Delivery O2 Flow Rate FiO2 02/18/22 15:26 35.6 86 18 123/74 95 Nasal Cannula 3.00 02/18/22 13:00 95 02/18/22 11:36 35.4 108 18 136/68 97 Nasal Cannula 3.00 02/18/22 08:00 Nasal Cannula 3.00 02/18/22 07:53 36.1 86 18 131/79 96 Nasal Cannula 3.00 02/18/22 07:36 88 02/18/22 04:03 36.0 79 18 138/67 95 Nasal Cannula 3.00 02/18/22 01:00 93 02/18/22 00:12 36.3 91 18 115/61 96 Nasal Cannula 3.00 02/17/22 21:04 117 02/17/22 20:00 Nasal Cannula 4.00 02/17/22 19:46 36.3 98 18 150/71 96 Nasal Cannula 3.00 02/17/22 19:00 101 02/17/22 18:31 96 Nasal Cannula 3.00 I & O 02/18/22 07:00 Intake Total 1230 ml Output Total 1275 ml Balance -45 ml Capillary Refill : Less Than 3 Seconds General Appearance: No Apparent Distress, WD/WN HEENT: PERRL/EOMI, Moist Mucous Membranes; No Scleral Icterus (L), No Scleral Icterus (R) Neck: Normal Inspection, Supple Respiratory: Chest Non Tender, No Accessory Muscle Use, No Respiratory Distress Cardiovascular: Regular Rate, Rhythm, No JVD Gastrointestinal: non tender, soft, other (Palpable bypass on right side of abdomen) Extremity: Normal Inspection, No Pedal Edema Neurologic/Psychiatric: Alert, Oriented x3, Normal Mood/Affect Skin: Normal Color, Warm/Dry Lymphatic: No Adenopathy Results Lab Laboratory Tests 02/18/22 05:00: White Blood Count 7.2, Red Blood Count 5.23, Hemoglobin 14.5, Hematocrit 46, Mean Corpuscular Volume 88, Mean Corpuscular Hemoglobin 28, Mean Corpuscular Hemoglobin Concent 32, Red Cell Distribution Width 14.4, Platelet Count 216, Mean Platelet Volume 9.8, Immature Granulocyte % (Auto) 0, Neutrophils (%) (Auto) 71, Lymphocytes (%) (Auto) 10L, Monocytes (%) (Auto) 12, Eosinophils (%) (Auto) 5, Basophils (%) (Auto) 1, Neutrophils # (Auto) 5.1, Lymphocytes # (Auto) 0.8L, Monocytes # (Auto) 0.9, Eosinophils # (Auto) 0.4H, Basophils # (Auto) 0.1, Immature Granulocyte # (Auto) 0.0, Percent Immature Platelet Fraction 3.2, Sodium Level 137, Potassium Level 4.1, Chloride Level 100, Carbon Dioxide Level 20L, Anion Gap 17H, Blood Urea Nitrogen 26H, Creatinine 1.14, Estimat Glomerular Filtration Rate 65, BUN/Creatinine Ratio 23, Glucose Level 94, Calcium Level 9.1, Corrected Calcium 9.1, Phosphorus Level 2.9, Magnesium Level 2.0, Total Bilirubin 0.7, Aspartate Amino Transf (AST/SGOT) 37H, Alanine Aminotransferase (ALT/SGPT) 20, Alkaline Phosphatase 82, Total Protein 7.5, Albumin 4.0 Microbiology 02/15/22 Blood Culture - Preliminary, Resulted No growth Assessment/Plan Assessment/Plan Assessment/Plan Left pleural effusion Mediastinal nodules/mass Acute respiratory failure Patient breathing improved, using oxygen. Patient with ct guided fluid drainage yesterday, sent for cytology. Suspect this is possibly metastatic effusion. Await cytology results. Further way of working this up would be an EBUS which we do not have available here but this would further work-up and allow biopsy. Will follow up outpatient. MUKESH HO DO February 18, 2022 16:39
[2022-02-18 17:17] VITALS: BP 123/74
--- NOTE | 2022-02-19 16:48 | Discharge Summary ---
Discharge Summary Hospital Course Problems/Dx: (1) Acute respiratory failure Status: Acute Qualifiers: (2) Pulmonary edema Status: Acute Qualifiers: (3) CAP (community acquired pneumonia) Status: Acute Qualifiers: (4) Lung mass Status: Acute Hospital Course Date of Admission: February 16, 2022 at 11:31 Admission Diagnosis : Acute respiratory failure with hypoxia due to COPD, pneumonia, and lung mass Family Physician/Provider: Mica Troy Date of Discharge: 02/18/22 Discharge Diagnosis: Acute respiratory failure with hypoxia due to COPD, pneumonia, and lung mass Hospital Course: Sharon Adamson is an 81 year old male with PMH COPD and tobacco abuse who was admitted with acute respiratory failure with hypoxia. He was treated for pneumonia with antibiotics and COPD exacerbation with steroids and breathing treatments. He was given a course of Omnicef and Prednisone to complete as an outpatient. He underwent a CT which showed a left perihilar mass, mediastinal lymphadenopathy, and bilateral pulmonary nodules. IR was consulted but a percutaneous biopsy was unable to be performed. There was concern for possible pleural involvement and a thoracentesis was performed and sent for cytology. This was pending at the time of discharge. He was set up with home oxygen 3 L continuously. He should follow up with his PCP Mica Troy in about a week. He should also follow up with his energy risk management analyst Dr. Isaiah Dupont in about a week. If his cytology returns negative, then he should undergo bronchoscopy with EBUS for biopsy.He was discharged home in stable condition. He was set up with home health care. Labs and Pending Lab Test: Microbiology 02/15/22 Blood Culture - Preliminary, Resulted No growth Home Meds Active Prednisone 10 Mg Tab.ds.pk 10 Mg PO DAILY Take 6 tabs(60mg)daily,decrease by 1 tab(10MG)daily. Cefdinir 300 Mg Capsule 300 Mg PO BID 5 Days Reported Primatene Mist (Epinephrine) 0.125 Mg/Actuation Hfa.aer.ad 1-2 Puff IH UD PRN Combivent Respimat Inhal [place] (Albuterol/Ipratropium) 20 Mcg-100 Mcg/Actuation Aero 1 Puff IH QID PRN Breztri Aerosphere Inhaler (Budesonide/Glycopyr/Formoterol) 160 Mcg-9 Mcg-4.8 Mcg/Actuation Hfa.aer.ad 2 Puff IH BID One Daily Plus Minerals (Multivitamin with Minerals) 1 Each Tablet 1 Each PO DAILY Senna (Sennosides) 8.6 Mg Tablet 8.6 Mg PO BID Ferrous Sulfate 324 Mg (65 Mg Iron) Tablet. 324 Mg PO DAILY Vitamin C (Ascorbate Calcium) 500 Mg Tablet 500 Mg PO DAILY Aleve (Naproxen Sodium) 220 Mg Capsule 220 Mg PO TID PRN Aspirin EC (Aspirin) 81 Mg Tablet. 81 Mg PO DAILY Atrovent Hfa (Ipratropium [place]) 12.9 Gm Aers 2 Puff IH BID PRN Combivent Respimat Inhal [place] (Albuterol/Ipratropium) 4 Gm Aero 1 Puff IH QID PRN MDD 6 PUFF PER DAY Senokot (Sennosides) 8.6 Mg Tablet 8.6 Mg PO BID PRN Pantoprazole Sodium 40 Mg Tablet. 40 Mg PO DAILY Symbicort 160-4.5 Mcg Inhaler (Budesonide/Formoterol Fumarate) 10.2 Gm Hfa.aer.ad 2 Puff IH BID Assessment/Pt Instructions Take medications as prescribed. Follow up with your primary care physician. Return with worsening shortness of breath, pain, or if you feel like you are getting worse. Discharge Planning: >30 minutes discharge planning Discharge Instructions Discharge Diet: Low Sodium Diet Activity as Tolerated: Yes Consultations Surgery Discharge Physical Examination Vital Signs Vital Signs Date Time Temp Pulse Resp B/P (MAP) Pulse Ox O2 Delivery O2 Flow Rate FiO2 02/18/22 17:17 35.6 86 18 123/74 95 Nasal Cannula 3.00 General Appearance: No Apparent Distress, WD/WN Respiratory: No Respiratory Distress, Decreased Breath Sounds Cardiovascular: Regular Rate, Rhythm, No Murmur Gastrointestinal: Normal Bowel Sounds, Soft Extremity: Normal Inspection, No Pedal Edema Skin: Normal Color, Warm/Dry Neurologic/Psychiatric: Alert, Normal Mood/Affect Allergies: Coded Allergies: albuterol (Verified Adverse Reaction, Mild, 02/18/22) Only nebulized, tolerates albuterol from inhaler without issue simvastatin (Unverified Adverse Reaction, Unknown, 01/24/21) Discharge Summary Date of Admission February 16, 2022 at 11:31 Date of Discharge February 18, 2022 at 17:20 Discharge Date: February 18, 2022 Discharge Time: 17:20 Admission Diagnosis Acute hypoxic respiratory failure Consults/Procedures Consulations Surgery Procedures Thoracentesis Discharge Diagnosis Acute hypoxic respiratory failure Pneumonia COPD HFpEF Pulmonary edema Lung mass (1) Acute respiratory failure Status: Acute Qualifiers: (2) Pulmonary edema Status: Acute Qualifiers: (3) CAP (community acquired pneumonia) Status: Acute Qualifiers: (4) Lung mass Status: Acute (5) COPD (chronic obstructive pulmonary disease) Status: Acute ESAU SMITH MD February 19, 2022 16:43
== END 2022-02-18 17:20 | disposition home health service (06) | DRG 193 ==
LOC: ER FS 20:04 → ICU 23:39 → 4TH 02-16 10:42 → OBSVTOIN 02-16 11:31 → MERGE 02-16 11:31
PROVIDERS: ADMIT Family Medicine; ATTEND Internal Medicine
PROC: 0W9B3ZX Drainage of Left Pleural Cavity, Percutaneous Approach, Diagnostic (ICD-10-PCS; principal; 2022-02-17)
DX: J16.0 Chlamydial pneumonia (principal); J96.01 Acute respiratory failure with hypoxia; J81.0 Acute pulmonary edema; I50.31 Acute diastolic (congestive) heart failure; J90 Pleural effusion, not elsewhere classified; Z87.891 Personal history of nicotine dependence; J43.9 Emphysema, unspecified; Z88.8 Allergy status to other drugs, medicaments and biological substances; Z20.822 Contact with and (suspected) exposure to COVID-19; R59.1 Generalized enlarged lymph nodes; R91.1 Solitary pulmonary nodule; R91.8 Other nonspecific abnormal finding of lung field
CPT/HCPCS: 36415; 71045; 71275; 76604; 77012; 80053; 80306; 81000; 83605; 83735; 83880; 84100; 84145; 84484; 85007; 85025; 85027; 85379; 85610; 85730; 87040; 87636; 93005; 93306; 94640; 94760; 94761; G0378; Q9967

== ENCOUNTER 2022-02-28 17:40 | Emergency (ER) | payer MEDICAID, MEDICARE, OTHER ==
[~2022-02-28] VITALS: Ht 167.7 cm; Wt 79.4 kg
[~2022-02-28 17:40] MED LIST changes: +ASCO-262 PO; +BUDE10.7 IH; +CEFD300C3 PO; +EPIN11.7 IH; +FERR324T4 PO; +MULT-422 PO; +PRED10TA22 PO; +SENN-234 PO
[2022-02-28 17:45] VITALS: BP 133/72
[2022-02-28 18:08] LABS: BASOPHILS # (AUTO) 0.1 10^3/uL (0.0-0.1); BASOPHILS % (AUTO) 1 % (0-10); EOSINOPHILS # (AUTO) 0.3 10^3/uL (0.0-0.3); EOSINOPHILS % (AUTO) 3 % (0-10); HEMATOCRIT 43 % (40-54); HEMOGLOBIN 13.5 g/dL (13.3-17.7); LYMPHOCYTES # (AUTO) 0.5 10^3/uL (1.0-4.0); LYMPHOCYTES % (AUTO) 4 % (12-44); MEAN CORPUSCULAR HEMOGLOBIN 28 pg (25-34); MEAN CORPUSCULAR HGB CONC 31 g/dL (32-36); MEAN CORPUSCULAR VOLUME 89 fL (80-99); MEAN PLATELET VOLUME 9.7 fL (9.0-12.2); MONOCYTES # (AUTO) 1.2 10^3/uL (0.0-1.0); MONOCYTES % (AUTO) 10 % (0-12); NEUTROPHILS # (AUTO) 10.4 10^3/uL (1.8-7.8); NEUTROPHILS % (AUTO) 83 % (42-75); PLATELET COUNT 210 10^3/uL (130-400); WHITE BLOOD COUNT 12.5 10^3/uL (4.3-11.0)
[2022-02-28 18:26] LABS: ALBUMIN 3.4 GM/DL (3.2-4.5); CHLORIDE 103 MMOL/L (98-107); POTASSIUM 4.1 MMOL/L (3.6-5.0); PROTHROMBIN TIME PATIENT 13.8 SEC (12.2-14.7); SODIUM 141 MMOL/L (135-145)
[2022-02-28 18:27] LABS: CALCIUM 8.7 MG/DL (8.5-10.1)
[2022-02-28 18:28] LABS: GLUCOSE 88 MG/DL (70-105)
--- NOTE | 2022-02-28 18:28 | ED Respiratory ---
General Chief Complaint: Respiratory Problems Stated Complaint: RESPIRATORY DISTRESS Nursing Triage Note: PT BROUGHT IN BY [facility] FROM HOME WITH COMPLAINT OF LEFT BACK PAIN, SOA, AND RASH ON LEFT SIDE. STATES HE WAS DISCAHRGED FROM HOSPITAL Thursday. Source: patient (PT IS VERY LIMITED HISTORIAN ABOUT PMH), old records (ALL PMH IS FROM OLD CHART) History of Present Illness Date Seen by Provider: Feb 28, 2022 Time Seen by Provider: 17:55 Initial Comments PT ARRIVES VIA [facility] FROM HOME PT ADMITTED HERE 02/15-02/18/22 FOR RESPIRATORY FAILURE, CHF, PNEUMONIA AND WAS NOTED TO HAVE A LEFT PERIHILAR LUNG MASS STATES HE WAS SENT HOME ON O2, WITH INSTRUCTIONS TO FOLLOW UP WITH [facility], DR. FIERRO, IN [place], HIS PCP AT [facility] IN [place] AND HOME HEALTH WAS ARRANGED. PT HAS NOT FOLLOWED UP WITH ANYONE SINCE BEING DISMISSED FROM HOSPITAL. HE STATES HE HAD AN APPOINTMENT TODAY AT THE [facility] FOR FOLLOW UP, BUT SIMPLY DID NOT GO. GIVES NO REASON WHY HE DIDN'T GO. STATES HE HAS NOT HAD ANY HOME HEALTH COME TO HIS HOUSE STATES HE HAS AN APPOINTMENT "SOMETIME" TO SEE DR. FIERRO AT [place] STATES HE STARTED FEELING BAD AFTER HE GOT HOME FROM THE HOSPITAL SYMPTOMS NO DIFFERENT TONIGHT (Thursday) HAS NOT SOUGHT CARE AT ANY TIME SINCE BEING DISMISSED FROM THE HOSPITAL--GOES TO [facility] IN [place] FOR ROUTINE MEDICAL CARE HAS INHALERS AND NEBULIZERS AT HOME AND USED THEM EARLIER TODAY AND STATES THEY HELP PT STATES HE HAS HAD A PRODUCTIVE COUGH WITH YELLOW SPUTUM C/O SHORTNESS OF BREATH C/O HAVING SWEATS AND CHILLS, TEMP NOT TAKEN C/O PAINFUL RASH TO LEFT CHEST NO SWELLING IN LEGS/ FEET NO GI SYMPTOMS PT WITH COPD, AND SMOKES 50 CIGARS/WEEK STATES HE HAS NOT SMOKED SINCE HE WAS DISMISSED FROM THE HOSPITAL PT HAS NOT HAD COVID OR FLU VACCINES PCP: [facility] IN [place] Allergies and Home Medications Allergies Coded Allergies: albuterol (Verified Adverse Reaction, Mild, 02/18/22) Only nebulized, tolerates albuterol from inhaler without issue simvastatin (Unverified Adverse Reaction, Unknown, 01/24/21) Patient Home Medication List Acyclovir (Zovirax) 5 % Oint, 30 GM TP Q3-4 HOURS Prescribed by: MARCEL NANCE on 02/28/22 215 Albuterol/Ipratropium (Combivent Respimat Inhal Ethel) 4 Gm Aero, 1 PUFF IH QID PRN for SHORTNESS OF BREATH, (Reported) Entered as Reported by: AMBROSIO CONNER on 01/25/21 1120 Albuterol/Ipratropium (Combivent Respimat Inhal Ethel) 20 Mcg-100 Mcg/Actuation Aero, 1 PUFF IH QID PRN for SHORTNESS OF BREATH, (Reported) Entered as Reported by: AMBROSIO CONNER on 02/17/22 154 Ascorbate Calcium (Vitamin C) 500 Mg Tablet, 500 MG PO DAILY, (Reported) Entered as Reported by: AMBROSIO CONNER on 02/17/22 154 Aspirin (Aspirin EC) 81 Mg Tablet.dr, 81 MG PO DAILY, (Reported) Entered as Reported by: AMBROSIO CONNER on 01/25/21 1120 Budesonide/Formoterol Fumarate (Symbicort 160-4.5 Mcg Inhaler) 10.2 Gm Hfa.a er.ad, 2 PUFF IH BID, (Reported) Entered as Reported by: TERRELL JUNIOR on 01/24/21 1654 Budesonide/Glycopyr/Formoterol (Breztri Aerosphere Inhaler) 160 Mcg-9 Mcg-4.8 Mcg/Actuation Hfa.aer.ad, 2 PUFF IH BID, (Reported) Entered as Reported by: AMBROSIO CONNER on 02/17/22 154 Cefdinir (Cefdinir) 300 Mg Capsule, 300 MG PO BID Prescribed by: ESAU SMITH on 02/18/22 1205 Cefdinir (Cefdinir) 300 Mg Capsule, 300 MG PO BID Prescribed by: MARCEL NANCE on 02/28/22 215 Epinephrine (Primatene Mist) 0.125 Mg/Actuation Hfa.aer.ad, 1-2 PUFF IH UD PRN for SHORTNESS OF BREATH, (Reported) Entered as Reported by: AMBROSIO CONNER on 02/17/22 154 Ferrous Sulfate (Ferrous Sulfate) 324 Mg (65 Mg Iron) Tablet., 324 MG PO DAILY, (Reported) Entered as Reported by: AMBROSIO CONNER on 02/17/22 1546 Hydrocodone/Acetaminophen (Hydrocodone-Acetamin 5-325 mg) 5 Mg-325 Mg Tablet, 1 EACH PO Q4-6 HOURS PRN for PAIN Prescribed by: MARCEL NANCE on 02/28/222155 Ipratropium [place] (Atrovent Hfa) 12.9 Gm Aers, 2 PUFF IH BID PRN for SHORTNESS OF BREATH, (Reported) Entered as Reported by: AMBROSIO CONNER on 01/25/21 1120 Multivitamin with Minerals (One Daily Plus Minerals) 1 Each Tablet, 1 EACH PO DAILY, (Reported) Entered as Reported by: AMBROSIO CONNER on 02/17/22 154 Naproxen Sodium (Aleve) 220 Mg Capsule, 220 MG PO TID PRN for PAIN-MILD (1-4), (Reported) Entered as Reported by: AMBROSIO CONNER on 01/25/21 1120 Pantoprazole Sodium (Pantoprazole Sodium) 40 Mg Tablet.dr, 40 MG PO DAILY, (Reported) Entered as Reported by: TERRELL JUNIOR on 01/24/21 1654 Prednisone (Prednisone) 10 Mg Tab.ds.pk, 10 MG PO DAILY Prescribed by: ESAU SMITH on 02/18/22 1205 Sennosides (Senokot) 8.6 Mg Tablet, 8.6 MG PO BID PRN for CONSTIPATION-5TH LINE, (Reported) Entered as Reported by: TERRELL JUNIOR on 01/24/21 1654 Sennosides (Senna) 8.6 Mg Tablet, 8.6 MG PO BID, (Reported) Entered as Reported by: AMBROSIO CONNER on 02/17/22 154 Valacyclovir HCl (Valtrex) 1,000 Mg Tablet, 1,000 MG PO TIDAC Prescribed by: MARCEL NANCE on 02/28/222154 Review of Systems Review of Systems Constitutional: see HPI, chills, diaphoresis EENTM: no symptoms reported Respiratory: see HPI, cough, orthopnea, phlegm, short of breath, wheezing Cardiovascular: see HPI; No edema, No palpitations, No syncope Gastrointestinal: no symptoms reported Genitourinary: no symptoms reported Musculoskeletal: no symptoms reported Skin: see HPI, rash Psychiatric/Neurological: No Symptoms Reported Hematologic/Lymphatic: No Symptoms Reported Immunological/Allergic: no symptoms reported Past Phdgklw-Ftapoj-Fyijwi Hx Patient Social History Tobacco Use?: Yes (50 CIGARS/WEEK) Tobacco type used: Cigars Use of E-Cig and/or Vaping dev: No Substance use?: No Alcohol Use?: No Pt feels they are or have been: No Immunizations Up To Date Tetanus Booster (TDap): Unknown Seasonal Allergies Seasonal Allergies: No Past Medical History Surgeries: Yes (PT DOES NOT KNOW WHAT KIND OF "VASCULAR SURGERY" HE HAD;LOOP RECORDER) Cardiac, Vascular Surgery Respiratory: Yes (LUNG MASS DX 02/15/22) COPD Cardiac: Yes (LOOP RECORDER) High Cholesterol, Peripheral Vascular, Syncope Neurological: Yes TIA Genitourinary: No Gastrointestinal: Yes (Hx weight loss work up [id number]) Gastroesophageal Reflux, Esophagitis Musculoskeletal: No Endocrine: No HEENT: No Cancer: No 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 Integumentary: Yes (past antibiotic and ointment for lower ext rash) Blood Disorders: Yes (Iron deficient anemia) Adverse Reaction/Blood Tranf: No Family Medical History No Pertinent Family Hx PAST SURGICAL HISTORY: -LOOP RECORDER IN PLACE-NOTED ON CXR -UNKNOWN "VASCULAR SURGERY"--PT HAS SCAR TO RIGHT UPPER CHEST, WITH PALPABLE SUB Q LEAD/CORD DOWN RIGHT LATERAL ABDOMEN Physical Exam Vital Signs - First Documented 02/28/22 17:45 Temp 36.1 Pulse 114 Resp 20 B/P (MAP) 133/72 (92) Pulse Ox 96 O2 Delivery Nasal Cannula O2 Flow Rate 3.00 Capillary Refill : Less Than 3 Seconds Height: '" Weight: lbs. oz. kg; 28.00 BMI Method: General Appearance: WD/WN, no apparent distress, thin, other (OCCASIONAL, MILD LOOSE COUGH. ) HEENT: PERRL/EOMI, normal ENT inspection, other (EDENTULOUS) Neck: normal inspection Respiratory: no respiratory distress, no accessory muscle use, other (DECREASED BREATH SOUNDS IN BOTH BASES, FAINT EXPIRATORY WHEEZING BILATERALLY) Cardiovascular: no edema, no JVD, no murmur, tachycardia (110'S) Gastrointestinal: normal bowel sounds, non tender, soft Extremities: normal inspection, no pedal edema, normal capillary refill Neurologic/Psychiatric: lightning rod erector II-XII nml as tested, no motor/sensory deficits, alert, normal mood/affect, oriented x 3 Skin: normal color, warm/dry, rash (HAS [id number] RASH TO LEFT CHEST WALL IN T5-6 DISTRIBUTION) Focused Exam Sepsis Stage: Ruled Out Possible Source: Pulmonary Lactate Level 02/28/22 17:55: Lactic Acid Level 2.26*H Time of Focused Exam: 19:30 Respiratory: No Accessory Muscle Use, No Respiratory Distress, Other (LUNG EXAM UNCHANGED) Cardiovascular: Regular Rate, Rhythm, No Edema, No JVD, No Murmur Capillary Refill: Less Than 3 Seconds Skin: normal color, warm/dry Lactic Acid Level Laboratory Tests Test 02/28/22 17:55 Lactic Acid Level 2.26 MMOL/L (0.50-2.00) *H Within 3hrs of presentation: Admin fluids, Admin ABX, Blood cultures prior to ABX's, Focus exam, Lactate level Progress/Results/Core Measures Suspected Sepsis SIRS Temperature: Pulse: 114 Respiratory Rate: 20 Laboratory Tests 02/28/22 17:55: White Blood Count 12.5H Blood Pressure 133 /72 Mean: 92 02/28/22 17:55: Lactic Acid Level 2.26*H Laboratory Tests 02/28/22 17:55: Creatinine 1.18, INR Comment 1.0, Platelet Count 210, Total Bilirubin 0.6 Results/Orders Lab Results Laboratory Tests Test 02/28/22 17:55 02/28/22 19:00 Range/Units White Blood Count 12.5 H 4.3-11.0 10^3/uL Red Blood Count 4.82 4.30-5.52 10^6/uL Hemoglobin 13.5 13.3-17.7 g/dL Hematocrit 43 40-54 % Mean Corpuscular Volume 89 80-99 fL Mean Corpuscular Hemoglobin 28 25-34 pg Mean Corpuscular Hemoglobin Concent 31 L 32-36 g/dL Red Cell Distribution Width 14.7 H 10.0-14.5 % Platelet Count 210 130-400 10^3/uL Mean Platelet Volume 9.7 9.0-12.2 fL Immature Granulocyte % (Auto) 1 % Neutrophils (%) (Auto) 83 H 42-75 % Lymphocytes (%) (Auto) 4 L 12-44 % Monocytes (%) (Auto) 10 0-12 % Eosinophils (%) (Auto) 3 0-10 % Basophils (%) (Auto) 1 0-10 % Neutrophils # (Auto) 10.4 H 1.8-7.8 10^3/uL Lymphocytes # (Auto) 0.5 L 1.0-4.0 10^3/uL Monocytes # (Auto) 1.2 H 0.0-1.0 10^3/uL Eosinophils # (Auto) 0.3 0.0-0.3 10^3/uL Basophils # (Auto) 0.1 0.0-0.1 10^3/uL Immature Granulocyte # (Auto) 0.1 0.0-0.1 10^3/uL Neutrophils % (Manual) 87 % Lymphocytes % (Manual) 5 % Monocytes % (Manual) 6 % Eosinophils % (Manual) 1 % Basophils % (Manual) 1 % Blood Morphology Comment NORMAL Erythrocyte Sedimentation Rate 37 H 0-30 MM/HR Prothrombin Time 13.8 12.2-14.7 SEC INR Comment 1.0 0.8-1.4 Activated Partial Thromboplast Time 36 H 24-35 SEC Sodium Level 141 135-145 MMOL/L Potassium Level 4.1 3.6-5.0 MMOL/L Chloride Level 103 98-107 MMOL/L Carbon Dioxide Level 24 21-32 MMOL/L Anion Gap 14 5-14 MMOL/L Blood Urea Nitrogen 17 7-18 MG/DL Creatinine 1.18 0.60-1.30 MG/DL Estimat Glomerular Filtration Rate 62 BUN/Creatinine Ratio 14 Glucose Level 88 70-105 MG/DL Lactic Acid Level 2.26 *H 0.50-2.00 MMOL/L Calcium Level 8.7 8.5-10.1 MG/DL Corrected Calcium 9.2 8.5-10.1 MG/DL Magnesium Level 2.2 1.6-2.4 MG/DL Total Bilirubin 0.6 0.1-1.0 MG/DL Aspartate Amino Transf (AST/SGOT) 27 5-34 U/L Alanine Aminotransferase (ALT/SGPT) 19 0-55 U/L Alkaline Phosphatase 74 40-136 U/L Lactate Dehydrogenase 344 H 125-220 U/L Total Creatine Kinase 21 L 30-200 U/L Creatine Kinase MB 1.0 <6.6 NG/ML Myoglobin 90.0 10.0-92.0 NG/ML Troponin I < 0.028 <0.028 NG/ML C-Reactive Protein High Sensitivity 17.46 H 0.00-0.50 MG/DL B-Type Natriuretic Peptide 54.9 <100.0 PG/ML Total Protein 6.5 6.4-8.2 GM/DL Albumin 3.4 3.2-4.5 GM/DL Procalcitonin 0.13 H <0.10 NG/ML Influenza Type A (RT-PCR) Not Detected Not Detecte Influenza Type B (RT-PCR) Not Detected Not Detecte SARS-CoV-2 RNA (RT-PCR) Not Detected Not Detecte Blood Gas Puncture Site LEFT BRACHIAL Blood Gas Patient Temperature 37.2 Arterial Blood pH 7.44 H 7.37-7.43 Arterial Blood Partial Pressure CO2 36 35-45 MMHG Arterial Blood Partial Pressure O2 59 L 79-93 MMHG Arterial Blood HCO3 24 23-27 MMOL/L Arterial Blood Total CO2 25.1 21.0-31.0 MMOL/L Arterial Blood Oxygen Saturation 92 L 94-100 % Arterial Blood Base Excess 0.3 -2.5-2.5 MMOL/L Jac Test POSITIVE Blood Gas Ventilator Setting NO Blood Gas Inspired Oxygen RA Micro Results Microbiology 02/28/22 Blood Culture - Preliminary, Resulted No growth 02/28/22 Blood Culture - Preliminary, Resulted No growth My Orders Orders - MARCEL NANCE DO Ed Iv/Invasive Line Start (02/28/22 17:58) Ekg Tracing (02/28/22 17:58) O2 (02/28/22 17:58) Monitor-Rhythm Ecg Trace Only (02/28/22 17:58) Chest 1 View, Ap/Pa Only (02/28/22 17:58) Bnp [place] (02/28/22 17:58) Cbc With Automated Diff (02/28/22 17:58) Comprehensive Metabolic Panel (02/28/22 17:58) Creatine Kinase (02/28/22 17:58) Creatine Kinase Mb (02/28/22 17:58) Hs C Reactive Protein (02/28/22 17:58) Lactic Acid Analyzer (02/28/22 17:58) Magnesium (02/28/22 17:58) Protime With Inr (02/28/22 17:58) Partial Thromboplastin Time (02/28/22 17:58) Blood Culture (02/28/22 17:58) Erythrocyte Sedimentation Rate (02/28/22 17:58) Myoglobin Serum (02/28/22 17:58) Troponin I [place] (02/28/22 17:58) Procalcitonin (Pct) (02/28/22 17:58) LDH (02/28/22 17:58) Covid 19 Inhouse Test (02/28/22 17:58) Ed Iv/Invasive Line Start (02/28/22 17:58) Ed Iv/Invasive Line Start (02/28/22 17:58) Vital Signs Adult Sepsis Patie Q15M (02/28/22 17:58) O2 (02/28/22 17:58) Remove Rings In Anticipation O (02/28/22 17:58) Influenza A And B By Pcr (02/28/22 17:58) Isolation Central Supply Req (02/28/22 17:58) Arterial Blood Gas (02/28/22 18:04) Manual Differential (02/28/22 17:55) Ed Iv/Invasive Line Start (02/28/22 19:14) Lactated Ringers (Lr 1000 Ml Iv Solution (02/28/22 19:15) Cefepime Injection (Maxipime Injection) (02/28/22 19:15) Ct Angio Chest W (02/28/22 19:18) Iohexol Injection (Omnipaque 350 Mg/Ml 1 (02/28/22 19:45) Ns (Ivpb) (Sodium Chloride 0.9% Ivpb Bag (02/28/22 19:45) Acyclovir Capsule/Tablet (Zovirax Caps (02/28/22 20:00) Hydrocodone/Apap 5/325 Tablet (Lortab 5 (02/28/22 20:00) Arterial Blood Draw - Obtain (02/28/22 ) Medications Given in ED Vital Signs/I&O 02/28/22 02/28/22 17:45 17:45 Temp 36.1 Pulse 114 Resp 20 B/P (MAP) 133/72 (92) Pulse Ox 96 O2 Delivery Nasal Cannula Nasal Cannula O2 Flow Rate 3.00 3.00 Capillary Refill : Less Than 3 Seconds Blood Pressure Mean: 92 Progress Note : Progress Note PLACED IN ISOLATION ROOM PPE WORN AT ALL TIMES COVID AND FLU TESTING DONE SEPSIS PROTOCOL INITIATED ECG Initial ECG Impression Date: Feb 28, 2022 Initial ECG Impression Time: 18:25 Initial ECG Rate: 105 Initial ECG Rhythm: S.Tach Initial ECG Impression: Nonspecific Changes Diagnostic Imaging Comments CXR--PER RADIOLOGIST REPORT AT 1845 FINDINGS: Stable interstitial opacities throughout the left lung. Implanted loop recorder. Stable heart size and pulmonary vascularity. Small left pleural effusion. No pneumothorax. No acute osseous findings. IMPRESSION: Stable exam including extensive interstitial opacities throughout the left lung. Small left pleural effusion. CT CHEST ANGIOGRAM--PER RADIOLOGIST REPORT AT 194 FINDINGS: There is some interstitial infiltrate in the left upper lobe. There is a left pleural effusion measuring 3 cm in thickness. There is left hilar adenopathy. There is mediastinal lymphadenopathy in the AP window extending into the subcarinal space of the mediastinum. Largest AP window node measures 3.8 cm in diameter. There is calcific atherosclerosis of the aorta but no aneurysm. There are no pulmonary emboli. There is no evidence of right ventricular strain. There are emphysematous changes in the lungs. There are some small patchy infiltrates in the right lung. There are calcified granulomas in both lungs. IMPRESSION: Left upper lobe interstitial infiltrate. There is no appreciable endobronchial lesion. There is mediastinal left hilar lymphadenopathy highly suspicious for neoplasm. There is a left pleural effusion present. There is no evidence for pulmonary embolism. Reviewed: Reviewed by Al Departure Communication (Admissions) 1914--SPOKE WITH DR. PATRICK, SHE ADVISES CT SCAN, AND WILL CALL HER BACK 1945--SPOKE WITH DR. PATRICK, PT DOES NOT MEET CRITERIA FOR ADMIT AT THIS TIME. Impression Primary Impression: LEFT SIDED PNEUMONIA Additional Impressions: LEFT PERIHILAR MASS Pleural effusion on left Shingles COPD (chronic obstructive pulmonary disease) Disposition: HOME, SELF-CARE Condition: Stable Departure-Patient Inst. Decision time for Depature: 19:49 Referrals: NO,LOCAL PHYSICIAN (PCP) Primary Care Physician SANDRA MARTINS (Family) Primary Care Physician Patient Instructions: Chronic Obstructive Pulmonary Disease (COPD) (DC), Lung Cancer (DC), Pleural Effusion, Pneumonia, Adult (DC), Shingles (DC) Add. Discharge Instructions: CONTINUE YOUR OXYGEN AT 3 LITERS ALL THE TIME CONTINUE YOUR INHALERS/NEBULIZERS INCREASE YOUR FLUID INTAKE FOLLOW UP WITH LUNG SPECIALIST IN [place] PREVIOUSLY ARRANGED FOLLOW UP WITH THE [place] [facility] NEXT WEEK, CALL ON THURSDAY SCHEDULED All discharge instructions reviewed with patient and/or family. Voiced understanding. Scripts Hydrocodone/Acetaminophen (Hydrocodone-Acetamin 5-325 mg) 5 Mg-325 Mg Tablet 1 EACH PO Q4-6 HOURS PRN for PAIN, #20 TAB Prov: MARCEL NANCE DO 02/28/22 Acyclovir (Zovirax) 5 % Oint 30 GM TP Q3-4 HOURS, #1 TUBE Prov: MARCEL NANCE DO 02/28/22 Valacyclovir HCl (Valtrex) 1,000 Mg Tablet 1000 MG PO TIDAC, #30 TAB Prov: MARCEL NANCE DO 02/28/22 Cefdinir (Cefdinir) 300 Mg Capsule 300 MG PO BID, #20 CAP Prov: MARCEL NANCE DO 02/28/22 MARCEL NANCE DO Feb 28, 2022 18:28
[2022-02-28 18:29] LABS: TOTAL PROTEIN 6.5 GM/DL (6.4-8.2)
[2022-02-28 18:30] LABS: BILIRUBIN,TOTAL 0.6 MG/DL (0.1-1.0); CARBON DIOXIDE 24 MMOL/L (21-32)
[2022-02-28 18:32] LABS: ALKALINE PHOSPHATASE 74 U/L (40-136); CREATININE SERUM 1.18 MG/DL (0.60-1.30); ERYTHROCYTE SEDIMENTATION RATE 37 MM/HR (0-30); GFR ESTIMATED 62
[2022-02-28 18:33] LABS: BUN/CREATININE RATIO 14
[2022-02-28 18:35] LABS: ALANINE AMINOTRANSFERASE 19 U/L (0-55); MAGNESIUM 2.2 MG/DL (1.6-2.4)
[2022-02-28 18:36] LABS: CREATINE KINASE 21 U/L (30-200)
[2022-02-28 18:38] LABS: BASOPHILS % (MANUAL) 1 %; EOSINOPHILS % (MANUAL) 1 %; LYMPHOCYTES % (MANUAL) 5 %; MONOCYTES % (MANUAL) 6 %; NEUTROPHILS % (MANUAL) 87 %; RBC MORPH NORMAL
--- NOTE | 2022-02-28 18:42 | Diagnostic Imaging Report ---
EXAM: CHEST 1 VIEW, AP/PA ONLY INDICATION: Shortness of breath. COMPARISON: Chest radiograph from 02/15/2022. FINDINGS: Stable interstitial opacities throughout the left lung. Implanted loop recorder. Stable heart size and pulmonary vascularity. Small left pleural effusion. No pneumothorax. No acute osseous findings. IMPRESSION: Stable exam including extensive interstitial opacities throughout the left lung. Small left pleural effusion. Dictated by: Dictated on workstation # [id number]
[2022-02-28] MEDS ORDERED: LACTATED RINGERS 1,000 ML IV ONE (19:15)
[2022-02-28] MEDS ORDERED: CEFEPIME INJECTION 1,000 MG in NS (IVPB) 50 ML IV ONE (19:15)
[2022-02-28 19:43] LABS: ABG BASE EXCESS 0.3 MMOL/L (-2.5-2.5); ABG OXYGEN SATURATION 92 % (94-100); ABG PCO2 36 MMHG (35-45); ABG PH 7.44 (7.37-7.43); ABG PO2 59 MMHG (79-93); ABG TCO2 25.1 MMOL/L (21.0-31.0); ALLENS TEST POSITIVE; INSPIRED O2 RA; PATIENT TEMP 37.2; VENTILATOR NO
--- NOTE | 2022-02-28 19:43 | Diagnostic Imaging Report ---
PROCEDURE: CT angiography of the chest with contrast. TECHNIQUE: Multiple contiguous axial images were obtained through the chest after uneventful bolus administration of intravenous contrast. 3D reconstructed CTA MIP acquisitions were also performed. Auto Exposure Controls were utilized during the CT exam to meet ALARA standards for radiation dose reduction. INDICATION: Respiratory distress. FINDINGS: There is some interstitial infiltrate in the left upper lobe. There is a left pleural effusion measuring 3 cm in thickness. There is left hilar adenopathy. There is mediastinal lymphadenopathy in the AP window extending into the subcarinal space of the mediastinum. Largest AP window node measures 3.8 cm in diameter. There is calcific atherosclerosis of the aorta but no aneurysm. There are no pulmonary emboli. There is no evidence of right ventricular strain. There are emphysematous changes in the lungs. There are some small patchy infiltrates in the right lung. There are calcified granulomas in both lungs. IMPRESSION: Left upper lobe interstitial infiltrate. There is no appreciable endobronchial lesion. There is mediastinal left hilar lymphadenopathy highly suspicious for neoplasm. There is a left pleural effusion present. There is no evidence for pulmonary embolism. Dictated by: Dictated on workstation # [id number]
[2022-02-28] MEDS ORDERED: IOHEXOL 350 MG/ML 100 ML (OMNIPAQUE 350) VIAL IV ONE (19:45)
[2022-02-28] MEDS ORDERED: NS 100 ML (IVPB) BAG IV ONE (19:45)
[2022-02-28] MEDS ORDERED: ACYC30OI TP ×2 (19:53→21:55)
[2022-02-28] MEDS ORDERED: ACHD5005 PO ×2 (19:53→21:55)
[2022-02-28] MEDS ORDERED: CEFD300C3 PO ×2 (19:53→21:55)
[2022-02-28] MEDS ORDERED: VALA10004 PO ×2 (19:53→21:55)
[2022-02-28] MEDS ORDERED: ACYCLOVIR 400 MG TABLET (ZOVIRAX) PO SCH (20:00)
[2022-02-28] MEDS ORDERED: HYDROcodone/APAP 5 MG/325 MG (LORTAB) TAB PO ONE (20:00)
== END 2022-02-28 22:55 | disposition home or self-care (01) ==
LOC: EDUNIT# 17:40 → ER 17:43
DX: J44.9 Chronic obstructive pulmonary disease, unspecified (principal); J90 Pleural effusion, not elsewhere classified; B02.9 Zoster without complications; J18.9 Pneumonia, unspecified organism; R22.9 Localized swelling, mass and lump, unspecified; F17.290 Nicotine dependence, other tobacco product, uncomplicated; Z20.822 Contact with and (suspected) exposure to COVID-19
CPT/HCPCS: 36415; 36600; 71045; 71275; 80053; 82550; 82553; 82805; 83605; 83615; 83735; 83874; 83880; 84145; 84484; 85007; 85027; 85610; 85652; 85730; 86141; 87040; 87636; 93005; 93041

== ENCOUNTER 2022-03-24 18:51 | Emergency (ER) | payer OTHER ==
[~2022-03-24] VITALS: Ht 167 cm; Wt 77.1 kg
[~2022-03-24 18:51] MED LIST changes: +ACHD5005 PO; +ACYC30OI TP; +VALA10004 PO
--- NOTE | 2022-03-24 19:26 | ED Respiratory ---
General Chief Complaint: Respiratory Problems Stated Complaint: WEAKNESS,SOB Nursing Triage Note: Pt c/o SOA and cough x 1 week. Pt was recently admitted to [facility] for pneumonia and discharged with antibiotics. Pt reports he is not taking his Cefdiner due to it causing diarrhea. Pt denies CP, or fever. Had lung biposy will admitted. Wears 3L of oxygen continuously. History of Present Illness Date Seen by Provider: Mar 24, 2022 Time Seen by Provider: 19:19 Initial Comments 81-year-old male here with complaints of getting worse over pneumonia. Patient was previously admitted to [facility] for pneumonia. Patient was admitted for acute respiratory failure with hypoxia due to COPD pneumonia and a lung mass. Patient has a history of COPD and tobacco use. Patient was normally on 3 L oxygen at home. He was admitted for pneumonia given antibiotics and given steroids and breathing treatments. Omnicef and prednisone to complete as an outpatient. Patient has cefdinir and did not finish taking that as he took a couple and he had diarrhea so he quit taking it. He does have a air grinder and a primary care but has not followed up with them. Patient is not taking any of his medications currently. States he just has trouble getting a deep breath. He did have a pleural fluid thoracentesis on the left. And it did show some me sothelial and inflammatory cells. Negative for malignant cells. He has not followed up with his primary care following this. No fever. Still just has coarse breath sounds Modifying Factors: Improves With Oxygen Allergies and Home Medications Allergies Coded Allergies: albuterol (Verified Adverse Reaction, Mild, 02/18/22) Only nebulized, tolerates albuterol from inhaler without issue simvastatin (Unverified Adverse Reaction, Unknown, 01/24/21) Patient Home Medication List Home Medication List Reviewed: Yes Acyclovir (Zovirax) 5 % Oint, 30 GM TP Q3-4 HOURS Prescribed by: MARCEL NANCE on 02/28/22 2155 Albuterol/Ipratropium (Combivent Respimat Inhal [place]) 4 Gm Aero, 1 PUFF IH QID PRN for SHORTNESS OF BREATH, (Reported) Entered as Reported by: AMBROSIO CONNER on 01/25/21 1120 Albuterol/Ipratropium (Combivent Respimat Inhal [place]) 20 Mcg-100 Mcg/Actuation Aero, 1 PUFF IH QID PRN for SHORTNESS OF BREATH, (Reported) Entered as Reported by: AMBROSIO CONNER on 02/17/22 154 Ascorbate Calcium (Vitamin C) 500 Mg Tablet, 500 MG PO DAILY, (Reported) Entered as Reported by: AMBROSIO CONNER on 02/17/22 154 Aspirin (Aspirin EC) 81 Mg Tablet.dr, 81 MG PO DAILY, (Reported) Entered as Reported by: AMBROSIO CONNER on 01/25/21 1120 Budesonide/Formoterol Fumarate (Symbicort 160-4.5 Mcg Inhaler) 10.2 Gm Hfa.aer.ad, 2 PUFF IH BID, (Reported) Entered as Reported by: TERRELL JUNIOR on 01/24/21 1654 Budesonide/Glycopyr/Formoterol (Breztri Aerosphere Inhaler) 160 Mcg-9 Mcg-4.8 Mcg/Actuation Hfa.aer.ad, 2 PUFF IH BID, (Reported) Entered as Reported by: AMBROSIO CONNER on 02/17/22 154 Cefdinir (Cefdinir) 300 Mg Capsule, 300 MG PO BID Prescribed by: ESAU SMITH on 02/18/22 1205 Cefdinir (Cefdinir) 300 Mg Capsule, 300 MG PO BID Prescribed by: MARCEL NANCE on 02/28/22 215 Epinephrine (Primatene Mist) 0.125 Mg/Actuation Hfa.aer.ad, 1-2 PUFF IH UD PRN for SHORTNESS OF BREATH, (Reported) Entered as Reported by: AMBROSIO CONNER on 02/17/22 154 Ferrous Sulfate (Ferrous Sulfate) 324 Mg (65 Mg Iron) Tablet.dr, 324 MG PO DAILY, (Reported) Entered as Reported by: AMBROSIO CONNER on 02/17/22 154 Hydrocodone/Acetaminophen (Hydrocodone-Acetamin 5-325 mg) 5 Mg-325 Mg Tablet, 1 EACH PO Q4-6 HOURS PRN for PAIN Prescribed by: MARCEL NANCE on 02/28/222155 Ipratropium [place] (Atrovent Hfa) 12.9 Gm Aers, 2 PUFF IH BID PRN for SHORTNESS OF BREATH, (Reported) Entered as Reported by: AMBROSIO CONNER on 01/25/21 1120 Levofloxacin (Levofloxacin) 750 Mg Tablet, 750 MG PO DAILY Prescribed by: Cole George on 03/24/222034 Multivitamin with Minerals (One Daily Plus Minerals) 1 Each Tablet, 1 EACH PO DAILY, (Reported) Entered as Reported by: AMBROSIO CONNER on 02/17/22 1546 Naproxen Sodium (Aleve) 220 Mg Capsule, 220 MG PO TID PRN for PAIN-MILD (1-4), (Reported) Entered as Reported by: AMBROSIO CONNER on 01/25/21 1120 Pantoprazole Sodium (Pantoprazole Sodium) 40 Mg Tablet.dr, 40 MG PO DAILY, (Reported) Entered as Reported by: TERRELL JUNIOR on 01/24/21 1654 Prednisone (Prednisone) 10 Mg Tab.ds.pk, 10 MG PO DAILY Prescribed by: ESAU SMITH on 02/18/22 1205 Sennosides (Senokot) 8.6 Mg Tablet, 8.6 MG PO BID PRN for CONSTIPATION-5TH LINE, (Reported) Entered as Reported by: TERRELL JUNIOR on 01/24/21 1654 Sennosides (Senna) 8.6 Mg Tablet, 8.6 MG PO BID, (Reported) Entered as Reported by: AMBROSIO CONNER on 02/17/22 1546 Valacyclovir HCl (Valtrex) 1,000 Mg Tablet, 1,000 MG PO TIDAC Prescribed by: MARCEL NANCE on 02/28/222154 Review of Systems Review of Systems Constitutional: see HPI Past Mhlttyy-Ecjhqt-Jtnxvu Hx Immunizations Up To Date Tetanus Booster (TDap): Unknown Seasonal Allergies Seasonal Allergies: No Past Medical History Surgeries: Yes (PT DOES NOT KNOW WHAT KIND OF "VASCULAR SURGERY" HE HAD;LOOP RECORDER) Cardiac, Vascular Surgery Respiratory: Yes (LUNG MASS DX 02/15/22) COPD Cardiac: Yes (LOOP RECORDER) High Cholesterol, Peripheral Vascular, Syncope Neurological: Yes TIA Genitourinary: No Gastrointestinal: Yes (Hx weight loss work up [id number]) Gastroesophageal Reflux, Esophagitis Musculoskeletal: No Endocrine: No HEENT: No Cancer: No 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 Integumentary: Yes (past antibiotic and ointment for lower ext rash) Blood Disorders: Yes (Iron deficient anemia) Adverse Reaction/Blood Tranf: No Family Medical History No Pertinent Family Hx PAST SURGICAL HISTORY: -LOOP RECORDER IN PLACE-NOTED ON CXR -UNKNOWN "VASCULAR SURGERY"--PT HAS SCAR TO RIGHT UPPER CHEST, WITH PALPABLE SUB Q LEAD/CORD DOWN RIGHT LATERAL ABDOMEN Physical Exam Vital Signs - First Documented 03/24/22 03/24/22 18:51 20:30 Temp 36.2 Pulse 108 Resp 18 B/P (MAP) 155/94 (114) Pulse Ox 95 O2 Delivery Nasal Cannula O2 Flow Rate 3.00 Capillary Refill : Less Than 3 Seconds Height: '" Weight: lbs. oz. kg; 27.00 BMI Method: General Appearance: WD/WN, mild distress Eyes: Bilateral Eye Normal Inspection Neck: non-tender, supple Respiratory: No respiratory distress; decreased breath sounds, rales; No wheezing Cardiovascular: regular rate, rhythm, no edema Neurologic/Psychiatric: alert, normal mood/affect Skin: normal color, warm/dry Progress/Results/Core Measures Suspected Sepsis SIRS Temperature: Pulse: 108 Respiratory Rate: 18 Laboratory Tests 03/24/22 18:55: White Blood Count 6.5 Blood Pressure 155 /94 Mean: 114 Laboratory Tests 03/24/22 18:55: Creatinine 0.98, Platelet Count 375, Total Bilirubin 0.4 Results/Orders Lab Results Laboratory Tests Test 03/24/22 18:55 Range/Units White Blood Count 6.5 4.3-11.0 10^3/uL Red Blood Count 4.99 4.30-5.52 10^6/uL Hemoglobin 13.5 13.3-17.7 g/dL Hematocrit 44 40-54 % Mean Corpuscular Volume 88 80-99 fL Mean Corpuscular Hemoglobin 27 25-34 pg Mean Corpuscular Hemoglobin Concent 31 L 32-36 g/dL Red Cell Distribution Width 15.5 H 10.0-14.5 % Platelet Count 375 130-400 10^3/uL Mean Platelet Volume 9.3 9.0-12.2 fL Immature Granulocyte % (Auto) 2 % Neutrophils (%) (Auto) 76 H 42-75 % Lymphocytes (%) (Auto) 8 L 12-44 % Monocytes (%) (Auto) 10 0-12 % Eosinophils (%) (Auto) 3 0-10 % Basophils (%) (Auto) 1 0-10 % Neutrophils # (Auto) 5.0 1.8-7.8 10^3/uL Lymphocytes # (Auto) 0.5 L 1.0-4.0 10^3/uL Monocytes # (Auto) 0.7 0.0-1.0 10^3/uL Eosinophils # (Auto) 0.2 0.0-0.3 10^3/uL Basophils # (Auto) 0.1 0.0-0.1 10^3/uL Immature Granulocyte # (Auto) 0.1 0.0-0.1 10^3/uL Neutrophils % (Manual) 76 % Lymphocytes % (Manual) 5 % Monocytes % (Manual) 8 % Eosinophils % (Manual) 6 % Basophils % (Manual) 1 % Band Neutrophils 4 % Sodium Level 141 135-145 MMOL/L Potassium Level 4.4 3.6-5.0 MMOL/L Chloride Level 102 98-107 MMOL/L Carbon Dioxide Level 27 21-32 MMOL/L Anion Gap 12 5-14 MMOL/L Blood Urea Nitrogen 8 7-18 MG/DL Creatinine 0.98 0.60-1.30 MG/DL Estimat Glomerular Filtration Rate 77 BUN/Creatinine Ratio 8 Glucose Level 94 70-105 MG/DL Calcium Level 8.8 8.5-10.1 MG/DL Corrected Calcium 9.3 8.5-10.1 MG/DL Total Bilirubin 0.4 0.1-1.0 MG/DL Aspartate Amino Transf (AST/SGOT) 18 5-34 U/L Alanine Aminotransferase (ALT/SGPT) 9 0-55 U/L Alkaline Phosphatase 111 40-136 U/L Total Protein 7.1 6.4-8.2 GM/DL Albumin 3.4 3.2-4.5 GM/DL Micro Results Microbiology 03/24/22 Blood Culture - Preliminary, Resulted No growth 03/24/22 Blood Culture - Preliminary, Resulted No growth My Orders Orders - COLE GEORGE MD Chest Pa/Lat (2 View) (03/24/22 19:26) Cbc And Manual Diff (03/24/22 19:26) Comprehensive Metabolic Panel (03/24/22 19:26) Ipratropium 0.02% Neb Solution (Atrovent (03/24/22 19:30) Svn Small Volume Nebulizer (03/24/22 19:28) Blood Culture (03/24/22 20:10) Levofloxacin 750 Mg/150 Ml Iv (Levaquin (03/24/22 20:30) Ipratropium 0.02% Neb Solution (Atrovent (03/24/22 19:37) Medications Given in ED Vital Signs/I&O 03/24/22 03/24/22 03/24/22 03/24/22 18:51 18:52 20:30 21:45 Temp 36.2 Pulse 108 110 107 Resp 18 23 20 B/P (MAP) 155/94 (114) 139/67 126/73 Pulse Ox 95 97 O2 Delivery Nasal Cannula Nasal Cannula Nasal Cannula Nasal Cannula O2 Flow Rate 3.00 3.00 3.00 3.00 03/24/22 22:15 Pulse 108 Resp 21 B/P (MAP) 115/71 Pulse Ox 97 O2 Delivery Nasal Cannula O2 Flow Rate 3.00 Capillary Refill : Less Than 3 Seconds 2 Blood Pressure Mean: 114 Progress Note #1: Time: 20:28 Progress Note Patient declined Atrovent ordered here. Patient did bring his own Combivent and took that in the room. Labs reviewed chest x-ray reviewed. We will plan to give levofloxacin 750 mg once now and then will send home on levofloxacin once daily. Patient to follow-up with primary care Progress Note #2: Time: 22:01 Progress Note Patient finished antibiotics. Will have take antibiotics at home as directed and probiotics. [facility] No admission criteria at this point. Patient is breathing better. He has his inhalers at home. Diagnostic Imaging Diagonstic Imaging: Xray Comments [place] NAME: KARYN ZAPATA [facility] REC#: [id number] PT STATUS: REG ER : 1940 PHYSICIAN: COLE GEORGE MD ADMIT DATE: 03/24/22/ER FS Signed Date of Exam:03/24/22 CHEST PA/LAT (2 VIEW) INDICATION: Pneumonia, shortness of breath PA and lateral chest obtained at 07:47 p.m. and compared to 02/28/2022 The heart is mildly enlarged. There are COPD changes with hyperinflation. Extensive infiltrate throughout the left lung has not appreciably changed compared to the prior study. There is a small amount of pleural fluid or pleural thickening in the left costophrenic angle. The right lung is grossly clear except for calcified granulomata in the right base. There is no pneumothorax. IMPRESSION: COPD changes. No change in extensive infiltrate throughout the left lung with a small amount of left pleural fluid versus thickening in the costophrenic angle. Dictated by: Dictated on workstation # [id number] Dict: 03/24/221953 Trans: 03/24/222207 [facility] [id number] Interpreted by: ALY TIM MD Electronically signed by: ALY TIM MD 03/24/222207 Departure Impression Primary Impression: Pneumonia Qualified Codes: J18.9 - Pneumonia, unspecified organism Additional Impression: COPD (chronic obstructive pulmonary disease) Qualified Codes: J43.1 - Panlobular emphysema Disposition: 01 HOME, SELF-CARE Condition: Stable Departure-Patient Inst. Decision time for Depature: 22:03 Referrals: NO,LOCAL PHYSICIAN (PCP) Primary Care Physician SANDRA MARTINS (Family) Primary Care Physician Patient Instructions: Pneumonia in Adults Scripts Levofloxacin (Levofloxacin) 750 Mg Tablet 750 MG PO DAILY for 7 Days, #7 TAB 0 Refills Prov: COLE GEORGE MD 03/24/22 COLE GEORGE MD Mar 24, 2022 19:26
[2022-03-24] MEDS ORDERED: RT-IPRATROPIUM (ATROVENT) 0.5MG/2.5ML AMP IH ONE ×2 (19:30→19:37)
[2022-03-24 19:33] LABS: BASOPHILS # (AUTO) 0.1 10^3/uL (0.0-0.1); BASOPHILS % (AUTO) 1 % (0-10); EOSINOPHILS # (AUTO) 0.2 10^3/uL (0.0-0.3); EOSINOPHILS % (AUTO) 3 % (0-10); HEMATOCRIT 44 % (40-54); HEMOGLOBIN 13.5 g/dL (13.3-17.7); LYMPHOCYTES # (AUTO) 0.5 10^3/uL (1.0-4.0); LYMPHOCYTES % (AUTO) 8 % (12-44); MEAN CORPUSCULAR HEMOGLOBIN 27 pg (25-34); MEAN CORPUSCULAR HGB CONC 31 g/dL (32-36); MEAN CORPUSCULAR VOLUME 88 fL (80-99); MEAN PLATELET VOLUME 9.3 fL (9.0-12.2); MONOCYTES # (AUTO) 0.7 10^3/uL (0.0-1.0); MONOCYTES % (AUTO) 10 % (0-12); NEUTROPHILS % (AUTO) 76 % (42-75); PLATELET COUNT 375 10^3/uL (130-400); WHITE BLOOD COUNT 6.5 10^3/uL (4.3-11.0)
[2022-03-24 19:49] LABS: ALBUMIN 3.4 GM/DL (3.2-4.5); BILIRUBIN,TOTAL 0.4 MG/DL (0.1-1.0); CALCIUM 8.8 MG/DL (8.5-10.1); CREATININE SERUM 0.98 MG/DL (0.60-1.30); POTASSIUM 4.4 MMOL/L (3.6-5.0); TOTAL PROTEIN 7.1 GM/DL (6.4-8.2)
--- NOTE | 2022-03-24 20:02 | Diagnostic Imaging Report ---
INDICATION: Pneumonia, shortness of breath PA and lateral chest obtained at 07:47 p.m. and compared to 02/28/2022 The heart is mildly enlarged. There are COPD changes with hyperinflation. Extensive infiltrate throughout the left lung has not appreciably changed compared to the prior study. There is a small amount of pleural fluid or pleural thickening in the left costophrenic angle. The right lung is grossly clear except for calcified granulomata in the right base. There is no pneumothorax. IMPRESSION: COPD changes. No change in extensive infiltrate throughout the left lung with a small amount of left pleural fluid versus thickening in the costophrenic angle. Dictated by: Dictated on workstation # [id number]
[2022-03-24] MEDS ORDERED: LEVO750T39 PO (20:35)
[2022-03-24 20:54] LABS: BAND NEUTROPHILS 4 %; BASOPHILS % (MANUAL) 1 %; EOSINOPHILS % (MANUAL) 6 %; LYMPHOCYTES % (MANUAL) 5 %; MONOCYTES % (MANUAL) 8 %; NEUTROPHILS % (MANUAL) 76 %
[2022-03-24 22:15] VITALS: BP 115/71
== END 2022-03-24 22:15 | disposition home or self-care (01) ==
LOC: EDUNIT# 18:51 → ER FS 18:52
DX: J18.9 Pneumonia, unspecified organism (principal); J44.9 Chronic obstructive pulmonary disease, unspecified; T36.1X6A Underdosing of cephalosporins and other beta-lactam antibiotics, initial encounter; Z91.128 Patient's intentional underdosing of medication regimen for other reason; Z79.2 Long term (current) use of antibiotics; Z99.81 Dependence on supplemental oxygen; Z79.899 Other long term (current) drug therapy; Z87.09 Personal history of other diseases of the respiratory system; Z28.310 Unvaccinated for COVID-19
CPT/HCPCS: 36415; 71046; 80053; 85007; 85027; 87040

== ENCOUNTER 2022-04-19 21:40 | Inpatient (IN) | payer OTHER, MEDICARE, MEDICAID ==
[~2022-04-19] VITALS: Ht 178 cm; Wt 64.7 kg
[~2022-04-19 21:40] MED LIST changes: +LEVO750T39 PO
[2022-04-19] MEDS ORDERED: ASPIRIN 81 MG CHEW (CHILDREN'S ASA) PO ONE (22:00)
--- NOTE | 2022-04-19 22:00 | ED Respiratory ---
General Chief Complaint: Respiratory Problems Stated Complaint: RESP. DISTRESS Source: patient, EMS Exam Limitations: clinical condition History of Present Illness Date Seen by Provider: Apr 19, 2022 Time Seen by Provider: 21:45 Initial Comments Patient is an 81-year-old male who presents to the emergency department today chief complaint shortness of breath, cough and chest pain. Patient states that shortness of breath has been coming on "a while" and on further pressing states longer than a week. He states this is the third time he is called the ambulance. EMS reported that they found him on 3 L of nasal cannula oxygen satting at about 90%. His heart rate was in the 140s. It appeared to be A. fib to the stock blender, he pushed 25 Cardizem, 125 of Solu-Medrol and gave him an albuterol breathing treatment. His heart rate on arrival was in the 120s and appears sinus with multiple PVCs. Patient states it feels like "there is something sitting on my chest". He has no history of coronary artery disease, prior intervention such as angioplasty or stents or bypass. He is a former smoker, he quit 2 years ago. No cardiac history at all that he is aware of. He does not see a sas architect. 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 No known COVID positive contacts. He is not vaccinated. His cough has been productive. No problems with bowel or bladder. No fevers or chills. No runny nose or sore throat. He is quite conversationally dyspneic All other review of systems reviewed and negative except as stated. Timing/Duration: week, getting worse Severity: severe Prior Episodes/Possible Cause: frequent episodes Associated Symptoms: chest pain/soreness, cough, shortness of breath Allergies and Home Medications Allergies Coded Allergies: albuterol (Verified Adverse Reaction, Mild, 02/18/22) Only nebulized, tolerates albuterol from inhaler without issue simvastatin (Unverified Adverse Reaction, Unknown, 01/24/21) Patient Home Medication List Home Medication List Reviewed: Yes Acyclovir (Zovirax) 5 % Oint, 30 GM TP Q3-4 HOURS Prescribed by: MARCEL NANCE on 02/28/22 4343 Albuterol/Ipratropium (Combivent Respimat Inhal [place]) 4 Gm Aero, 1 PUFF IH QID PRN for SHORTNESS OF BREATH, (Reported) Entered as Reported by: AMBROSIO CONNER on 01/25/21 1120 Albuterol/Ipratropium (Combivent Respimat Inhal [place]) 20 Mcg-100 Mcg/Actuation Aero, 1 PUFF IH QID PRN for SHORTNESS OF BREATH, (Reported) Entered as Reported by: AMBROSIO CONNER on 02/17/22 154 Ascorbate Calcium (Vitamin C) 500 Mg Tablet, 500 MG PO DAILY, (Reported) Entered as Reported by: AMBROSIO CONNER on 02/17/22 154 Aspirin (Aspirin EC) 81 Mg Tablet.dr, 81 MG PO DAILY, (Reported) Entered as Reported by: AMBROSIO CONNER on 01/25/21 1120 Budesonide/Formoterol Fumarate (Symbicort 160-4.5 Mcg Inhaler) 10.2 Gm Hfa.aer.ad, 2 PUFF IH BID, (Reported) Entered as Reported by: TERRELL JUNIOR on 01/24/21 1654 Budesonide/Glycopyr/Formoterol (Breztri Aerosphere Inhaler) 160 Mcg-9 Mcg-4.8 Mcg/Actuation Hfa.aer.ad, 2 PUFF IH BID, (Reported) Entered as Reported by: AMBROSIO CONNER on 02/17/22 154 Cefdinir (Cefdinir) 300 Mg Capsule, 300 MG PO BID Prescribed by: ESAU SMITH on 02/18/22 1205 Cefdinir (Cefdinir) 300 Mg Capsule, 300 MG PO BID Prescribed by: MARCEL NANCE on 02/28/222154 Epinephrine (Primatene Mist) 0.125 Mg/Actuation Hfa.aer.ad, 1-2 PUFF IH UD PRN for SHORTNESS OF BREATH, (Reported) Entered as Reported by: AMBROSIO CONNER on 02/17/22 154 Ferrous Sulfate (Ferrous Sulfate) 324 Mg (65 Mg Iron) Tablet.dr, 324 MG PO DAILY, (Reported) Entered as Reported by: AMBROSIO CONNER on 02/17/22 154 Hydrocodone/Acetaminophen (Hydrocodone-Acetamin 5-325 mg) 5 Mg-325 Mg Tablet, 1 EACH PO Q4-6 HOURS PRN for PAIN Prescribed by: MARCEL NANCE on 02/28/222155 Ipratropium [place] (Atrovent Hfa) 12.9 Gm Aers, 2 PUFF IH BID PRN for SHORTNESS OF BREATH, (Reported) Entered as Reported by: AMBROSIO CONNER on 01/25/21 1120 Levofloxacin (Levofloxacin) 750 Mg Tablet, 750 MG PO DAILY Prescribed by: Cole Miguel on 03/24/222034 Multivitamin with Minerals (One Daily Plus Minerals) 1 Each Tablet, 1 EACH PO DAILY, (Reported) Entered as Reported by: AMBROSIO CONNER on 02/17/22 1546 Naproxen Sodium (Aleve) 220 Mg Capsule, 220 MG PO TID PRN for PAIN-MILD (1-4), (Reported) Entered as Reported by: AMBROSIO CONNER on 01/25/21 1120 Pantoprazole Sodium (Pantoprazole Sodium) 40 Mg Tablet.dr, 40 MG PO DAILY, (Reported) Entered as Reported by: TERRELL JUNIOR on 01/24/21 1654 Prednisone (Prednisone) 10 Mg Tab.ds.pk, 10 MG PO DAILY Prescribed by: ESAU SMITH on 02/18/22 1205 Sennosides (Senokot) 8.6 Mg Tablet, 8.6 MG PO BID PRN for CONSTIPATION-5TH LINE, (Reported) Entered as Reported by: TERRELL JUNIOR on 01/24/21 1654 Sennosides (Senna) 8.6 Mg Tablet, 8.6 MG PO BID, (Reported) Entered as Reported by: AMBROSIO CONNER on 02/17/22 1546 Valacyclovir HCl (Valtrex) 1,000 Mg Tablet, 1,000 MG PO TIDAC Prescribed by: MARCEL NANCE on 02/28/222154 Review of Systems Review of Systems Constitutional: see HPI EENTM: no symptoms reported Respiratory: cough, phlegm, short of breath Cardiovascular: chest pain Gastrointestinal: no symptoms reported Genitourinary: no symptoms reported Musculoskeletal: no symptoms reported Skin: no symptoms reported All Other Systems Reviewed Negative Unless Noted: Yes Past Fwfmrfj-Oisttl-Bjgxjf Hx Immunizations Up To Date Tetanus Booster (TDap): Unknown First/Initial COVID19 Vaccinat: Denies Seasonal Allergies Seasonal Allergies: No Past Medical History Surgeries: Yes (PT DOES NOT KNOW WHAT KIND OF "VASCULAR SURGERY" HE HAD;LOOP RECORDER) Cardiac, Vascular Surgery Respiratory: Yes (LUNG MASS DX 02/15/22) COPD Cardiac: Yes (LOOP RECORDER) High Cholesterol, Peripheral Vascular, Syncope Neurological: Yes TIA Genitourinary: No Gastrointestinal: Yes (Hx weight loss work up [id number]) Gastroesophageal Reflux, Esophagitis Musculoskeletal: No Endocrine: No HEENT: No Cancer: No 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 oz. kg; 27.00 BMI Method: General Appearance: moderate distress, thin Eyes: Bilateral Eye Normal Inspection, Bilateral Eye PERRL, Bilateral Eye EOMI Neck: normal inspection Respiratory: No no respiratory distress, No no accessory muscle use; respiratory distress, decreased breath sounds (Diminished at the bases bilaterally), accessory muscle use, crackles (Right upper lobe) Cardiovascular: regular rate, rhythm, tachycardia (120's) Gastrointestinal: normal bowel sounds, non tender, soft Extremities: normal range of motion, non-tender, normal inspection, no pedal edema Neurologic/Psychiatric: alert, normal mood/affect, oriented x 3 Skin: cyanosis, damp, pallor Focused Exam Lactate Level Lactic Acid Level Laboratory Tests Test 04/19/22 21:48 Lactic Acid Level 2.36 MMOL/L (0.50-2.00) *H Progress/Results/Core Measures Suspected Sepsis SIRS Temperature: Pulse: Respiratory Rate: Laboratory Tests 04/19/22 21:48: White Blood Count 12.1H Blood Pressure / Mean: Laboratory Tests 04/19/22 21:48: Creatinine 0.90, INR Comment 1.0, Platelet Count 340, Total Bilirubin 0.6 Results/Orders Lab Results Laboratory Tests Test 04/19/22 21:48 04/19/22 21:52 04/19/22 22:00 Range/Units White Blood Count 12.1 H 4.3-11.0 10^3/uL Red Blood Count 4.89 4.30-5.52 10^6/uL Hemoglobin 13.6 13.3-17.7 g/dL Hematocrit 44 40-54 % Mean Corpuscular Volume 91 80-99 fL Mean Corpuscular Hemoglobin 28 25-34 pg Mean Corpuscular Hemoglobin Concent 31 L 32-36 g/dL Red Cell Distribution Width 17.7 H 10.0-14.5 % Platelet Count 340 130-400 10^3/uL Mean Platelet Volume 9.7 9.0-12.2 fL Immature Granulocyte % (Auto) 2 % Neutrophils (%) (Auto) 83 H 42-75 % Lymphocytes (%) (Auto) 6 L 12-44 % Monocytes (%) (Auto) 7 0-12 % Eosinophils (%) (Auto) 2 0-10 % Basophils (%) (Auto) 1 0-10 % Neutrophils # (Auto) 10.0 H 1.8-7.8 10^3/uL Lymphocytes # (Auto) 0.7 L 1.0-4.0 10^3/uL Monocytes # (Auto) 0.8 0.0-1.0 10^3/uL Eosinophils # (Auto) 0.3 0.0-0.3 10^3/uL Basophils # (Auto) 0.1 0.0-0.1 10^3/uL Immature Granulocyte # (Auto) 0.2 H 0.0-0.1 10^3/uL Neutrophils % (Manual) 87 % Lymphocytes % (Manual) 2 % Monocytes % (Manual) 5 % Eosinophils % (Manual) 2 % Myelocytes % 1 % Promyelocytes % % Band Neutrophils 3 % Elliptocytes SLIGHT Prothrombin Time 13.1 12.2-14.7 SEC INR Comment 1.0 0.8-1.4 Activated Partial Thromboplast Time 31 24-35 SEC Sodium Level 139 135-145 MMOL/L Potassium Level 4.3 3.6-5.0 MMOL/L Chloride Level 99 98-107 MMOL/L Carbon Dioxide Level 22 21-32 MMOL/L Anion Gap 18 H 5-14 MMOL/L Blood Urea Nitrogen 12 7-18 MG/DL Creatinine 0.90 0.60-1.30 MG/DL Estimat Glomerular Filtration Rate 86 BUN/Creatinine Ratio 13 Glucose Level 160 H 70-105 MG/DL Lactic Acid Level 2.36 *H 0.50-2.00 MMOL/L Calcium Level 9.4 8.5-10.1 MG/DL Corrected Calcium 9.8 8.5-10.1 MG/DL Total Bilirubin 0.6 0.1-1.0 MG/DL Aspartate Amino Transf (AST/SGOT) 25 5-34 U/L Alanine Aminotransferase (ALT/SGPT) 9 0-55 U/L Alkaline Phosphatase 114 40-136 U/L Troponin I < 0.028 <0.028 NG/ML B-Type Natriuretic Peptide 77.7 <100.0 PG/ML Total Protein 7.2 6.4-8.2 GM/DL Albumin 3.5 3.2-4.5 GM/DL SARS-CoV-2 RNA (RT-PCR) Not Detected Not Detecte Blood Gas Puncture Site LT RAD Blood Gas Patient Temperature 36.9 Arterial Blood pH 7.28 *L 7.37-7.43 Arterial Blood Partial Pressure CO2 59 H 35-45 MMHG Arterial Blood Partial Pressure O2 59 L 79-93 MMHG Arterial Blood HCO3 27 23-27 MMOL/L Arterial Blood Total CO2 28.9 21.0-31.0 MMOL/L Arterial Blood Oxygen Saturation 89 L 94-100 % Arterial Blood Base Excess 1.0 -2.5-2.5 MMOL/L Jac Test YES-POS Blood Gas Ventilator Setting NO Blood Gas Inspired Oxygen 4L Micro Results Microbiology 04/19/22 Blood Culture - Preliminary, Resulted No growth 04/19/22 Blood Culture - Preliminary, Resulted No growth My Orders Orders - CHITO GOMSE MD Ekg Tracing (04/19/22 21:43) Cbc With Automated Diff (04/19/22 21:52) Comprehensive Metabolic Panel (04/19/22 21:52) Blood Culture (04/19/22 21:52) Sputum Culture (04/19/22 21:52) Urinalysis (04/19/22 21:52) Urine Culture (04/19/22 21:52) Protime With Inr (04/19/22 21:52) Partial Thromboplastin Time (04/19/22 21:52) Chest 1 View, Ap/Pa Only (04/19/22 21:52) Ed Iv/Invasive Line Start (04/19/22 21:52) Ed Iv/Invasive Line Start (04/19/22 21:52) Vital Signs Adult Sepsis Patie Q15M (04/19/22 21:52) O2 (04/19/22 21:52) Remove Rings In Anticipation O (04/19/22 21:52) Lactic Acid Analyzer (04/19/22 21:52) Bnp Karina (04/19/22 21:52) Troponin I Karina (04/19/22 21:52) Covid 19 Inhouse Test (04/19/22 21:52) Isolation Central Supply Req (04/19/22 21:52) Aspirin Chewable Tablet (Baby Aspirin Ch (04/19/22 22:00) Manual Differential (04/19/22 21:48) Arterial Blood Gas (04/19/22 22:04) Ns Iv 1000 Ml (Sodium Chloride 0.9%) (04/19/22 22:30) Cefepime Injection (Maxipime Injection) (04/19/22 22:45) Azithromycin Injection (Zithromax Inject (04/19/22 22:45) Morphine Injection (Morphine Injection (04/19/22 22:40) Medications Given in ED Vital Signs/I&O 04/19/22 04/19/22 04/19/22 21:40 21:40 21:40 Temp 36.9 Pulse 120 Resp 26 B/P (MAP) 149/79 (102) Pulse Ox 92 O2 Delivery Nasal Cannula Room Air Nasal Cannula O2 Flow Rate 4.00 4.00 4.00 Capillary Refill : Progress Note #1: Time: 22:22 Progress Note notified of lactic acid 2.36 Progress Note #2: Time: 22:43 Progress Note Case discussed with Dr. Smith on for the hospitalist service. We will start the patient on cefepime and azithromycin. We will put him on BiPAP with some morphine for air hunger/anxiety/pain. Gentle IV hydration. I had a discussion with the patient regarding resuscitation/intubation. I asked him if he would want extraordinary measures to save his life should his heart stop or should he require intubation and he states "I guess". I described CPR to him and he continues to consider CPR as an alternative. We will have palliative care talk to him on Thursday. His chest x-ray shows almost complete opacification of the left hemithorax. He told me that he believes that he did not have cancer but we talked about the thoracentesis he had at his hospitalization in January and the fact that he needed to follow-up with his primary care for further evaluation of these enlarged lymph nodes in his left lung. He has not had that done. He is only had a couple of ER visits since his hospitalization in January, no follow-up with primary care. He will likely need repeat thoracentesis. I have put a consult to Dr. Botello for in the morning regarding his pleural effusion. (nitro paste removed) ECG Initial ECG Impression Date: Apr 19, 2022 Initial ECG Impression Time: 21:48 Initial ECG Rate: 121 Initial ECG Rhythm: S.Tach Initial ECG Intervals NV interval 160 QRS 83 QTc [address]-T wave changes in the inferior leads. No significant ST segment elevation or depression is noted. Diagnostic Imaging Diagonstic Imaging: Xray Plain Films/CT/US/NM/MRI: chest Comments [facility], [place] NAME: KARYN [facility]AP[facility] REC#: [id number] PT STATUS: REG ER : 1940 PHYSICIAN: CHITO GOMES MD ADMIT DATE: 04/19/22/ER Signed Date of Exam:04/19/22 CHEST 1 VIEW, AP/PA ONLY EXAMINATION: Chest 1 view. HISTORY: Cough. COMPARISON: 02/28/2022. FINDINGS: There is near complete opacification of the left hemithorax. Loop recorder projects over the heart. Right lung is clear. No pneumothorax. IMPRESSION: Near complete opacification of the left hemithorax consistent with a large pleural effusion combined with collapse. Dictated by: Dictated on workstation # [id number] Dict: 04/19/222228 Trans: 04/19/222235 [facility] [id number] Interpreted by: MILLY GONSALEZ MD Electronically signed by: MILLY GONSALEZ MD 04/19/222235 Critical Care Note Critical Care Start Time: 21:45 Stop Time: 22:45 Total Time (minutes) 35 minutes critical care time in the evaluation and management of this 81-year-old with respiratory distress. Time includes initial evaluation and management of hypoxia with oxygen supplementation, fluid resuscitation, review and interpretation of laboratory studies and medical record. Review and interpretation of chest x-ray. Discussion with admitting provider. Discussion with patient Departure Communication (Admissions) Time/Spoke to Admitting Phy: 22:[address] Smith accepts patient for admission Impression Primary Impression: Acute respiratory failure Qualified Codes: J96.01 - Acute respiratory failure with hypoxia; J96.02 - Acute respiratory failure with hypercapnia Additional Impressions: CAP (community acquired pneumonia) Qualified Codes: J18.9 - Pneumonia, unspecified organism Pleural effusion on left Disposition: 09 ADMITTED INPATIENT Condition: Critical Admissions Decision to Admit Reason: Admit from ER (General) Decision to Admit/Date: Apr 19, 2022 Time/Decision to Admit Time: 22:35 Departure-Patient Inst. Referrals: NO,LOCAL PHYSICIAN (PCP) Primary Care Physician SANDRA MARTINS (Family) Primary Care Physician CHITO GOMES MD Apr 19, 2022 22:00
[2022-04-19 22:01] LABS: BASOPHILS # (AUTO) 0.1 10^3/uL (0.0-0.1); BASOPHILS % (AUTO) 1 % (0-10); EOSINOPHILS # (AUTO) 0.3 10^3/uL (0.0-0.3); EOSINOPHILS % (AUTO) 2 % (0-10); HEMATOCRIT 44 % (40-54); HEMOGLOBIN 13.6 g/dL (13.3-17.7); LYMPHOCYTES # (AUTO) 0.7 10^3/uL (1.0-4.0); LYMPHOCYTES % (AUTO) 6 % (12-44); MEAN CORPUSCULAR HEMOGLOBIN 28 pg (25-34); MEAN CORPUSCULAR HGB CONC 31 g/dL (32-36); MEAN CORPUSCULAR VOLUME 91 fL (80-99); MEAN PLATELET VOLUME 9.7 fL (9.0-12.2); MONOCYTES # (AUTO) 0.8 10^3/uL (0.0-1.0); MONOCYTES % (AUTO) 7 % (0-12); NEUTROPHILS % (AUTO) 83 % (42-75); PLATELET COUNT 340 10^3/uL (130-400); WHITE BLOOD COUNT 12.1 10^3/uL (4.3-11.0)
[2022-04-19 22:13] LABS: ALBUMIN 3.5 GM/DL (3.2-4.5); CHLORIDE 99 MMOL/L (98-107); POTASSIUM 4.3 MMOL/L (3.6-5.0); SODIUM 139 MMOL/L (135-145)
[2022-04-19 22:14] LABS: CALCIUM 9.4 MG/DL (8.5-10.1)
[2022-04-19 22:15] LABS: GLUCOSE 160 MG/DL (70-105)
[2022-04-19 22:16] LABS: TOTAL PROTEIN 7.2 GM/DL (6.4-8.2)
[2022-04-19 22:17] LABS: BILIRUBIN,TOTAL 0.6 MG/DL (0.1-1.0); CARBON DIOXIDE 22 MMOL/L (21-32); PROTHROMBIN TIME PATIENT 13.1 SEC (12.2-14.7)
[2022-04-19 22:18] LABS: BAND NEUTROPHILS 3 %; EOSINOPHILS % (MANUAL) 2 %; LYMPHOCYTES % (MANUAL) 2 %; MONOCYTES % (MANUAL) 5 %; NEUTROPHILS % (MANUAL) 87 %
[2022-04-19 22:19] LABS: ALKALINE PHOSPHATASE 114 U/L (40-136); ELLIPT/OVALOCYTES SLIGHT; GFR ESTIMATED 86; MYELOCYTES % 1 %
[2022-04-19 22:20] LABS: BUN/CREATININE RATIO 13
[2022-04-19 22:20] LABS: ABG OXYGEN SATURATION 89 % (94-100); ABG PCO2 59 MMHG (35-45); ABG PO2 59 MMHG (79-93); ABG TCO2 28.9 MMOL/L (21.0-31.0)
[2022-04-19 22:22] LABS: ALANINE AMINOTRANSFERASE 9 U/L (0-55)
[2022-04-19 22:22] LABS: ABG PH 7.28 (7.37-7.43); ALLENS TEST YES-POS; INSPIRED O2 4L; PATIENT TEMP 36.9; VENTILATOR NO
[2022-04-19] MEDS ORDERED: NS IV 1000 ML 1,000 ML IV SCH (22:30)
--- NOTE | 2022-04-19 22:32 | Diagnostic Imaging Report ---
EXAMINATION: Chest 1 view. HISTORY: Cough. COMPARISON: 02/28/2022. FINDINGS: There is near complete opacification of the left hemithorax. Loop recorder projects over the heart. Right lung is clear. No pneumothorax. IMPRESSION: Near complete opacification of the left hemithorax consistent with a large pleural effusion combined with collapse. Dictated by: Dictated on workstation # [id number]
[2022-04-19] MEDS ORDERED: morphine INJ 10 MG/ML 1ML (SYR OR VIAL) IVP STA (22:40)
[2022-04-19] MEDS ORDERED: AZITHROMYCIN INJECTION 500 MG in NS (IVPB) 250 ML IV ONE (22:45)
[2022-04-19] MEDS ORDERED: CEFEPIME INJECTION 1,000 MG in NS (IVPB) 50 ML IV ONE (22:45)
[2022-04-19 23:29] VITALS: BP 107/57
[2022-04-19] MEDS ORDERED: NS IV 1000 ML 1,000 ML ONE (23:29)
[2022-04-19] MEDS: NS IV 1000 ML 1,000 ML IV SCH (23:45)
[2022-04-19] MEDS ORDERED: morphine INJ 4 MG/ML 1 ML (VIAL/SYRINGE) IV PRN (23:45)
[2022-04-19] MEDS ORDERED: ONDANSETRON 4 MG/2 ML (SDV) Z0FRAN IV PRN (23:45)
--- NOTE | 2022-04-20 00:10 | Tele-ICU Consult ---
History of Present Illness History of Present Illness Date Seen by Provider: Apr 20, 2022 Time Seen by Provider: 00:00 History of Present Illness 81 yo M with COPD, cc cough, SOB chest pain Transferred from another facility in a fibe with rate 140, given large loading dose of IV Cardizem, converted, now in sinus tach with HR 104, placed on BIPAP 15/8 with FiO2 60% with improvement in breathing CXR shows hyperinflation and opacification on left, probably from fluid, may have endobronchial mass Allergies and Home Medications Allergies Coded Allergies: albuterol (Verified Adverse Reaction, Mild, 02/18/22) Only nebulized, tolerates albuterol from inhaler without issue simvastatin (Unverified Adverse Reaction, Unknown, 01/24/21) Home Medications Acyclovir 5 % Oint, 30 GM TP Q3-4 HOURS Prescribed by: MARCEL NANCE on 02/28/222154 Albuterol/Ipratropium 4 Gm Aero, 1 PUFF IH QID PRN for SHORTNESS OF BREATH, (Reported) Albuterol/Ipratropium 20 Mcg-100 Mcg/Actuation Aero, 1 PUFF IH QID PRN for SHORTNESS OF BREATH, (Reported) Ascorbate Calcium 500 Mg Tablet, 500 MG PO DAILY, (Reported) Aspirin 81 Mg Tablet.dr, 81 MG PO DAILY, (Reported) Budesonide/Formoterol Fumarate 10.2 Gm Hfa.aer.ad, 2 PUFF IH BID, (Reported) Budesonide/Glycopyr/Formoterol 160 Mcg-9 Mcg-4.8 Mcg/Actuation Hfa.aer.ad, 2 PUFF IH BID, (Reported) Cefdinir 300 Mg Capsule, 300 MG PO BID Prescribed by: ESAU SMITH on 02/18/22 1205 Cefdinir 300 Mg Capsule, 300 MG PO BID Prescribed by: MARCEL NANCE on 02/28/222154 Epinephrine 0.125 Mg/Actuation Hfa.aer.ad, 1-2 PUFF IH UD PRN for SHORTNESS OF BREATH, (Reported) Ferrous Sulfate 324 Mg (65 Mg Iron) Tablet.dr, 324 MG PO DAILY, (Reported) Hydrocodone/Acetaminophen 5 Mg-325 Mg Tablet, 1 EACH PO Q4-6 HOURS PRN for PAIN Prescribed by: MARCEL NANCE on 02/28/222155 Ipratropium [place] 12.9 Gm Aers, 2 PUFF IH BID PRN for SHORTNESS OF BREATH, (Reported) Levofloxacin 750 Mg Tablet, 750 MG PO DAILY Prescribed by: Cole Miguel on 03/24/222034 Multivitamin with Minerals 1 Each Tablet, 1 EACH PO DAILY, (Reported) Naproxen Sodium 220 Mg Capsule, 220 MG PO TID PRN for PAIN-MILD (1-4), (Reported) Pantoprazole Sodium 40 Mg Tablet.dr, 40 MG PO DAILY, (Reported) Prednisone 10 Mg Tab.ds.pk, 10 MG PO DAILY Take 6 tabs(60mg)daily,decrease by 1 tab(10MG)daily. Prescribed by: ESAU SMITH on 02/18/22 120 Sennosides 8.6 Mg Tablet, 8.6 MG PO BID PRN for CONSTIPATION-5TH LINE, (Reported) Sennosides 8.6 Mg Tablet, 8.6 MG PO BID, (Reported) Valacyclovir HCl 1,000 Mg Tablet, 1,000 MG PO TIDAC Prescribed by: MARCEL NANCE on 02/28/222154 Past Medical/Social/Family Hx Patient Social History Smoking Status: Former Smoker Immunizations Up To Date First/Initial COVID19 Vaccinat: Denies Second COVID19 Vaccination Gurwinder: Denies Tetanus Booster (TDap): More Than 5 Years Hepatitis A: No Hepatitis B: No TB Skin Test: None Date of Pneumonia Vaccine: Aug 14, 2016 Current Status Primary Language: Bahamian Preferred Spoken Language: Bahamian Family Medical History Family Hx: PAST SURGICAL HISTORY: -LOOP RECORDER IN PLACE-NOTED ON CXR -UNKNOWN "VASCULAR SURGERY"--PT HAS SCAR TO RIGHT UPPER CHEST, WITH PALPABLE SUB Q LEAD/CORD DOWN RIGHT LATERAL ABDOMEN Review of Systems Constitutional: see HPI EENTM: see HPI Respiratory: see HPI Cardiovascular: see HPI Gastrointestinal: see HPI Genitourinary: see HPI Musculoskeletal: see HPI Skin: see HPI Psychiatric/Neurological: See HPI Focused Exam Lactate Level 04/19/22 21:48: Lactic Acid Level 2.36*H Height, Weight, BMI Height: '" Weight: lbs. oz. kg; 27.00 BMI Method: Lactic Acid Level Laboratory Tests Test 04/19/22 21:48 Lactic Acid Level 2.36 MMOL/L (0.50-2.00) *H Exam Exam Patient acknowledged, consented, and participated in this virtual visit which was conducted using real time audio/video Vital Signs Date Time Temp Pulse Resp B/P (MAP) Pulse Ox O2 Delivery O2 Flow Rate FiO2 04/19/22 23:05 36.9 106 24 106/84 95 Nasal Cannula 4.00 04/19/22 23:00 36.0 102 19 107/57 90 NIV Bilevel 60.00 04/19/22 21:40 36.9 120 26 149/79 (102) 92 Nasal Cannula 4.00 04/19/22 21:40 Room Air 4.00 04/19/22 21:40 Nasal Cannula 4.00 I & O 04/20/22 07:00 Intake Total 50 ml Balance 50 ml Height & Weight Height: '" Weight: lbs. oz. kg; 27.00 BMI Method: General Appearance: No Apparent Distress, WD/WN (decreased BS on left) Cardiovascular: Tachycardia Capillary Refill: Less Than 3 Seconds Gastrointestinal: normal bowel sounds, non tender, soft Results Lab Laboratory Tests 04/19/22 21:48 Assessment/Plan Assessment/Plan COPD, possible lung Ca, left pleural effusion, on BIPAP continue on BIPAP, will need bronch Critical Care: Critically Ill Patient CLAUDIA RAY MD Apr 20, 2022 00:10
[2022-04-20] MEDS ORDERED: RT-ALBUTEROL/IPRATROPIUM 3 ML (DUONEB) VIAL INH PRN (00:30)
[2022-04-20] MEDS: RT-ALBUTEROL/IPRATROPIUM 3 ML (DUONEB) VIAL INH SCH ×4 (03:01→14:30)
[2022-04-20 03:02] VITALS: BP 88/53
[2022-04-20 03:13] LABS: BASOPHILS % (AUTO) 0 % (0-10); EOSINOPHILS % (AUTO) 0 % (0-10); HEMATOCRIT 38 % (40-54); HEMOGLOBIN 11.5 g/dL (13.3-17.7); LYMPHOCYTES # (AUTO) 0.2 10^3/uL (1.0-4.0); LYMPHOCYTES % (AUTO) 3 % (12-44); MEAN CORPUSCULAR HEMOGLOBIN 28 pg (25-34); MEAN CORPUSCULAR HGB CONC 31 g/dL (32-36); MEAN CORPUSCULAR VOLUME 92 fL (80-99); MEAN PLATELET VOLUME 9.9 fL (9.0-12.2); MONOCYTES # (AUTO) 0.1 10^3/uL (0.0-1.0); MONOCYTES % (AUTO) 2 % (0-12); NEUTROPHILS # (AUTO) 6.5 10^3/uL (1.8-7.8); NEUTROPHILS % (AUTO) 95 % (42-75); PLATELET COUNT 182 10^3/uL (130-400); WHITE BLOOD COUNT 6.9 10^3/uL (4.3-11.0)
[2022-04-20 03:26] LABS: CALCIUM 8.4 MG/DL (8.5-10.1); CREATININE SERUM 0.85 MG/DL (0.60-1.30); MAGNESIUM 1.7 MG/DL (1.6-2.4); PHOSPHORUS 3.9 MG/DL (2.3-4.7); POTASSIUM 4.6 MMOL/L (3.6-5.0)
[2022-04-20] MEDS: MAGNESIUM 1 GM/100 ML IVPB 100 ML IV SCH ×2 (04:58→04:59)
[2022-04-20] MEDS: CEFEPIME 1,000 MG/NS 50 ML IVPB IV SCH ×4 (05:43→12:00)
[2022-04-20] MEDS ORDERED: KCL 20 MEQ TAB (K-DUR) PO SCH (06:00)
[2022-04-20] MEDS ORDERED: POTASSIUM CL 10MEQ/50ML IVPB 50 ML IV SCH (06:00)
[2022-04-20] MEDS ORDERED: MAGNESIUM 1 GM/100 ML IVPB 100 ML IV SCH (06:00)
[2022-04-20] MEDS: NS IV 1000 ML 1,000 ML IV SCH (07:41)
--- NOTE | 2022-04-20 11:29 | Consultation - Surgery ---
AMBROSE GRANDA 04/20/22 1129: History of Present Illness History of Present Illness Patient Consulted On(asha/time) 04/20/22 11:24 Date Seen by Provider: Apr 20, 2022 Time Seen by Provider: 09:52 Reason for Visit: Shortness of breath History of Present Illness Mr. Adamson is an 81 year old male with a past medical history significant for COPD and atrial fibrillation who presented to the ED yesterday with a chief complain of shortness of breath, cough, and chest pain. He said that he has been having more trouble breathing over the last several weeks. He says that he has been to the ED in [place] several times over the last week and seen a doctor with the [place]. He says his breathing has been progressively getting worse over the last several weeks and it is worse when he is laying flat. He says his appetite has also decreased. He says that medicine given to him in the ED and at [place] has made his breathing better; walking or any exertion makes it worse. He has associated chest pain and tightness with atrial fibrillation upon admission. He denied any radiation of his pain. He said about 1 month ago a biopsy was done of his lung and he thinks some fluid was also drained. He says it was very painful and he is not interested in any fluid being drained off of his lung again while he is awake because it hurt too much the last time. Allergies and Home Medications Allergies Coded Allergies: albuterol (Verified Adverse Reaction, Mild, 02/18/22) Only nebulized, tolerates albuterol from inhaler without issue simvastatin (Unverified Adverse Reaction, Unknown, 01/24/21) Patient Home Medication List Acyclovir (Zovirax) 5 % Oint, 30 GM TP Q3-4 HOURS Prescribed by: MARCEL NANCE on 02/28/22 2155 Albuterol/Ipratropium (Combivent Respimat Inhal [place]) 4 Gm Aero, 1 PUFF IH QID PRN for SHORTNESS OF BREATH, (Reported) Entered as Reported by: AMBROSIO CONNER on 01/25/21 1120 Albuterol/Ipratropium (Combivent Respimat Inhal [place]) 20 Mcg-100 Mcg/Actuation Aero, 1 PUFF IH QID PRN for SHORTNESS OF BREATH, (Reported) Entered as Reported by: AMBROSIO CONNER on 02/17/22 1546 Ascorbate Calcium (Vitamin C) 500 Mg Tablet, 500 MG PO DAILY, (Reported) Entered as Reported by: AMBROSIO CONNER on 02/17/22 1546 Aspirin (Aspirin EC) 81 Mg Tablet.dr, 81 MG PO DAILY, (Reported) Entered as Reported by: AMBROSIO CONNER on 01/25/21 1120 Budesonide/Formoterol Fumarate (Symbicort 160-4.5 Mcg Inhaler) 10.2 Gm Hfa.aer.ad, 2 PUFF IH BID, (Reported) Entered as Reported by: TERRELL JUNIOR on 01/24/21 1654 Budesonide/Glycopyr/Formoterol (Breztri Aerosphere Inhaler) 160 Mcg-9 Mcg-4.8 Mcg/Actuation Hfa.aer.ad, 2 PUFF IH BID, (Reported) Entered as Reported by: AMBROSIO CONNER on 02/17/22 154 Cefdinir (Cefdinir) 300 Mg Capsule, 300 MG PO BID Prescribed by: ESAU SMITH on 02/18/22 1205 Cefdinir (Cefdinir) 300 Mg Capsule, 300 MG PO BID Prescribed by: MARCEL NANCE on 02/28/22 215 Epinephrine (Primatene Mist) 0.125 Mg/Actuation Hfa.aer.ad, 1-2 PUFF IH UD PRN for SHORTNESS OF BREATH, (Reported) Entered as Reported by: AMBROSIO CONNER on 02/17/22 154 Ferrous Sulfate (Ferrous Sulfate) 324 Mg (65 Mg Iron) Tablet., 324 MG PO DAILY, (Reported) Entered as Reported by: AMBROSIO CONNER on 02/17/22 1546 Hydrocodone/Acetaminophen (Hydrocodone-Acetamin 5-325 mg) 5 Mg-325 Mg Tablet, 1 EACH PO Q4-6 HOURS PRN for PAIN Prescribed by: MARCEL NANCE on 02/28/22 215 Ipratropium [place] (Atrovent Hfa) 12.9 Gm Aers, 2 PUFF IH BID PRN for SHORTNESS OF BREATH, (Reported) Entered as Reported by: AMBROSIO CONNER on 01/25/21 1120 Levofloxacin (Levofloxacin) 750 Mg Tablet, 750 MG PO DAILY Prescribed by: Cole Miguel on 03/24/222034 Multivitamin with Minerals (One Daily Plus Minerals) 1 Each Tablet, 1 EACH PO DAILY, (Reported) Entered as Reported by: AMBROSIO CONNER on 02/17/22 1546 Naproxen Sodium (Aleve) 220 Mg Capsule, 220 MG PO TID PRN for PAIN-MILD (1-4), (Reported) Entered as Reported by: AMBROSIO CONNER on 01/25/21 1120 Pantoprazole Sodium (Pantoprazole Sodium) 40 Mg Tablet.dr, 40 MG PO DAILY, (Reported) Entered as Reported by: TERRELL JUNIOR on 01/24/21 1654 Prednisone (Prednisone) 10 Mg Tab.ds.pk, 10 MG PO DAILY Prescribed by: ESAU SMITH on 02/18/22 1205 Sennosides (Senokot) 8.6 Mg Tablet, 8.6 MG PO BID PRN for CONSTIPATION-5TH LINE, (Reported) Entered as Reported by: TERRELL JUNIOR on 01/24/21 1654 Sennosides (Senna) 8.6 Mg Tablet, 8.6 MG PO BID, (Reported) Entered as Reported by: AMBROSIO CONNER on 02/17/22 1546 Valacyclovir HCl (Valtrex) 1,000 Mg Tablet, 1,000 MG PO TIDAC Prescribed by: MARCEL NANCE on 02/28/222154 Past Ihwtbbu-Djlrih-Kxrdds Hx Patient Social History Smoking Status: Former Smoker (Quit smoking 2 years ago) Type Used: Cigars (Smoked 6-7 cigars a day for 40 years) 2nd Hand Smoke Exposure: Yes Recent Hopitalizations: No Alcohol Use?: No (Quit drinking 2-3 years ago. Reports drinking daily before that.) Have you traveled recently?: No Immunizations Up To Date Tetanus Booster (TDap): Unknown Date of Pneumonia Vaccine: Aug 14, 2016 Seasonal Allergies Seasonal Allergies: No Surgeries History of Surgeries: Yes (Loop recorder placed. Some sort of "vascular" surgery, unknown to patient) Surgeries: Cardiac, Vascular Surgery Respiratory History of Respiratory Disorde: Yes (LUNG MASS DX 02/15/22) Respiratory Disorders: COPD Cardiovascular History of Cardiac Disorders: Yes (LOOP RECORDER) Cardiac Disorders: High Cholesterol, Peripheral Vascular, Syncope Neurological History of Neurological Disord: Yes Neurological Disorders: TIA Genitourinary History of Genitourinary Disor: No Gastrointestinal History of Gastrointestinal Di: Yes (Hx weight loss work up [id number]) Gastrointestinal Disorders: Gastroesophageal Reflux, Esophagitis Musculoskeletal History of Musculoskeletal Dis: No Endocrine History of Endocrine Disorders: No HEENT History of HEENT Disorders: No Cancer History of Cancer: No Psychosocial History of Psychiatric Problem: Yes (Hx reactive depression ) Behavioral Health Disorders: Depression Integumentary History of Skin or Integumenta: Yes (past antibiotic and ointment for lower ext rash) Blood Transfusions History of Blood Disorders: Yes (Iron deficient anemia) Adverse Reaction to a Blood Tr: No Family Medical History Significant Family History: Heart Disease (Mother from [place]) Review of Systems-General Constitutional: No chills, No fever EENTM: No blurred vision, No double vision Respiratory: cough, dyspnea on exertion, short of breath Cardiovascular: chest pain, palpitations Gastrointestinal: No abdominal pain, No nausea, No vomiting Psychiatric/Neurological: Denies Numbness, Denies Weakness Physical Exam-General Problems Physical Exam Vital Signs Vital Signs - First Documented 04/19/22 04/20/22 21:40 00:00 Temp 36.9 Pulse 120 Resp 26 B/P (MAP) 149/79 (102) Pulse Ox 92 FiO2 60 Capillary Refill : Less Than 3 Seconds General Appearance: no apparent distress (Patient reports major trouble breathing upon admission yesterday but says he feels much better this morning), thin HEENT: PERRL/EOMI; No pale conjunctivae (R), No pale conjunctivae (L) Neck: non-tender, supple Respiratory: chest non-tender, no respiratory distress, no accessory muscle use, decreased breath sounds (Absent breath sounds on left) Cardiovascular: normal peripheral pulses, regular rate, rhythm, other (Atrial fibrillation treated yesterday. Sinus at time of exam this morning.) Peripheral Pulses: 2+ Radial Pulses (R), 2+ Radial Pulses (L) Gastrointestinal: non tender, soft; No distended, No guarding, No rebound; other (A cord or cathether-like structure is palpable in his lower abdomen running up to his chest) Extremities: non-tender, no pedal edema Neurologic/Psychiatric: alert, normal mood/affect, oriented x 3 Skin: normal color, warm/dry Data Review Labs Laboratory Tests 04/19/22 21:48: White Blood Count 12.1H, Red Blood Count 4.89, Hemoglobin 13.6, Hematocrit 44, Mean Corpuscular Volume 91, Mean Corpuscular Hemoglobin 28, Mean Corpuscular Hemoglobin Concent 31L, Red Cell Distribution Width 17.7H, Platelet Count 340, Mean Platelet Volume 9.7, Immature Granulocyte % (Auto) 2, Neutrophils (%) (Auto) 83H, Lymphocytes (%) (Auto) 6L, Monocytes (%) (Auto) 7, Eosinophils (%) (Auto) 2, Basophils (%) (Auto) 1, Neutrophils # (Auto) 10.0H, Lymphocytes # (Auto) 0.7L, Monocytes # (Auto) 0.8, Eosinophils # (Auto) 0.3, Basophils # (Auto) 0.1, Immature Granulocyte # (Auto) 0.2H, Neutrophils % (Manual) 87, Lymphocytes % (Manual) 2, Monocytes % (Manual) 5, Eosinophils % (Manual) 2, Myelocytes % 1, Promyelocytes % , Band Neutrophils 3, Elliptocytes SLIGHT, Prothrombin Time 13.1, INR Comment 1.0, Activated Partial Thromboplast Time 31, Sodium Level 139, Potassium Level 4.3, Chloride Level 99, Carbon Dioxide Level 22, Anion Gap 18H, Blood Urea Nitrogen 12, Creatinine 0.90, Estimat Glomerular Filtration Rate 86, BUN/Creatinine Ratio 13, Glucose Level 160H, Lactic Acid Level 2.36*H, Calcium Level 9.4, Corrected Calcium 9.8, Total Bilirubin 0.6, Aspartate Amino Transf (AST/SGOT) 25, Alanine Aminotransferase (ALT/SGPT) 9, Alkaline Phosphatase 114, Troponin I < 0.028, B-Type Natriuretic Peptide 77.7, Total Protein 7.2, Albumin 3.5 04/19/22 21:52: SARS-CoV-2 RNA (RT-PCR) Not Detected 04/19/22 22:00: Blood Gas Puncture Site LT RAD, Blood Gas Patient Temperature 36.9, Arterial Blood pH 7.28*L, Arterial Blood Partial Pressure CO2 59H, Arterial Blood Partial Pressure O2 59L, Arterial Blood HCO3 27, Arterial Blood Total CO2 28.9, Arterial Blood Oxygen Saturation 89L, Arterial Blood Base Excess 1.0, Jac Test YES-POS, Blood Gas Ventilator Setting NO, Blood Gas Inspired Oxygen 4L 04/20/22 00:02: Lactic Acid Level 2.32*H 04/20/22 02:58: White Blood Count 6.9, Red Blood Count 4.08L, Hemoglobin 11.5L, Hematocrit 38L, Mean Corpuscular Volume 92, Mean Corpuscular Hemoglobin 28, Mean Corpuscular Hemoglobin Concent 31L, Red Cell Distribution Width 17.6H, Platelet Count 182, Mean Platelet Volume 9.9, Immature Granulocyte % (Auto) 1, Neutrophils (%) (Auto) 95H, Lymphocytes (%) (Auto) 3L, Monocytes (%) (Auto) 2, Eosinophils (%) (Auto) 0, Basophils (%) (Auto) 0, Neutrophils # (Auto) 6.5, Lymphocytes # (Auto) 0.2L, Monocytes # (Auto) 0.1, Eosinophils # (Auto) 0.0, Basophils # (Auto) 0.0, Immature Granulocyte # (Auto) 0.1, Sodium Level 143, Potassium Level 4.6, Chlor yordan Level 103, Carbon Dioxide Level 19L, Anion Gap 21H, Blood Urea Nitrogen 13, Creatinine 0.85, Estimat Glomerular Filtration Rate 87, BUN/Creatinine Ratio 15, Glucose Level 153H, Lactic Acid Level 2.47*H, Calcium Level 8.4L, Phosphorus Level 3.9, Magnesium Level 1.7 04/20/22 05:31: Lactic Acid Level 1.05 Radiology NAME: KARYN ADAMSON [facility] REC#: [id number] PT STATUS: REG ER : 1940 PHYSICIAN: CHITO GOMES MD ADMIT DATE: 04/19/22/ER Signed Date of Exam:04/19/22 CHEST 1 VIEW, AP/PA ONLY EXAMINATION: Chest 1 view. HISTORY: Cough. COMPARISON: 02/28/2022. FINDINGS: There is near complete opacification of the left hemithorax. Loop recorder projects over the heart. Right lung is clear. No pneumothorax. IMPRESSION: Near complete opacification of the left hemithorax consistent with a large pleural effusion combined with collapse. Dictated by: Dictated on workstation # [id number] Dict: 04/19/222228 Trans: 04/19/222235 [facility] [id number] Interpreted by: MILLY GONSALEZ MD Electronically signed by: MILLY GONASLEZ MD 04/19/22 5269 Assessment/Plan Assessment/Plan Assessment/Plan Left pleural effusion Recurrent Drained on [address] [place] Fluid sent for pathology showed no evidence of malignant cells Acute on chronic respiratory failure Atrial fibrillation Cardiology consulted COPD Continue antibiotics, albuterol, and ipratropoium Continue supplemental oxygen Patient would likely benefit from thoracentesis to help improve his breathing. Reports it hurt very bad the last time and does not want one again unless he is "knocked out" Pathology from prior thoracentesis showed no evidence of malignant cells Long history of smoking. Possible endobronchial mass. Consider possible bronchoscopy. BERNARDSINAIYAYA DO 04/20/22 1339: History of Present Illness History of Present Illness Time Seen by Provider: 12:19 History of Present Illness Surgery asked to consult regarding SOB and Pleural effusion. Pt actually had drainage of this appx 2 months ago and does not want that done again. His main complaint is SOB, but he states that is actually a little better compared to yesterday. He is currently being transferred to [facility] for Pulmonology. Allergies and Home Medications Allergies Coded Allergies: albuterol (Verified Adverse Reaction, Mild, 02/18/22) Only nebulized, tolerates albuterol from inhaler without issue simvastatin (Unverified Adverse Reaction, Unknown, 01/24/21) Patient Home Medication List Home Medication List Reviewed: Yes Acyclovir (Zovirax) 5 % Oint, 30 GM TP Q3-4 HOURS Prescribed by: MARCEL NANCE on 02/28/22 2155 Albuterol/Ipratropium (Combivent Respimat Inhal [place]) 4 Gm Aero, 1 PUFF IH QID PRN for SHORTNESS OF BREATH, (Reported) Entered as Reported by: AMBROSIO CONNER on 01/25/21 1120 Albuterol/Ipratropium (Combivent Respimat Inhal [place]) 20 Mcg-100 Mcg/Actuation Aero, 1 PUFF IH QID PRN for SHORTNESS OF BREATH, (Reported) Entered as Reported by: AMBROSIO CONNER on 02/17/22 1546 Ascorbate Calcium (Vitamin C) 500 Mg Tablet, 500 MG PO DAILY, (Reported) Entered as Reported by: AMBROSIO CONNER on 02/17/22 1546 Aspirin (Aspirin EC) 81 Mg Tablet.dr, 81 MG PO DAILY, (Reported) Entered as Reported by: AMBROSIO CONNER on 01/25/21 1120 Budesonide/Formoterol Fumarate (Symbicort 160-4.5 Mcg Inhaler) 10.2 Gm Hfa.aer.ad, 2 PUFF IH BID, (Reported) Entered as Reported by: TERRELL JUNIOR on 01/24/21 1654 Budesonide/Glycopyr/Formoterol (Breztri Aerosphere Inhaler) 160 Mcg-9 Mcg-4.8 Mcg/Actuation Hfa.aer.ad, 2 PUFF IH BID, (Reported) Entered as Reported by: AMBROSIO CONNER on 02/17/22 154 Cefdinir (Cefdinir) 300 Mg Capsule, 300 MG PO BID Prescribed by: ESAU SMITH on 02/18/22 1205 Cefdinir (Cefdinir) 300 Mg Capsule, 300 MG PO BID Prescribed by: MARCEL NANCE on 02/28/22 215 Epinephrine (Primatene Mist) 0.125 Mg/Actuation Hfa.aer.ad, 1-2 PUFF IH UD PRN for SHORTNESS OF BREATH, (Reported) Entered as Reported by: AMBROSIO CONNER on 02/17/22 154 Ferrous Sulfate (Ferrous Sulfate) 324 Mg (65 Mg Iron) Tablet.dr, 324 MG PO DAILY, (Reported) Entered as Reported by: AMBROSIO CONNER on 02/17/22 154 Hydrocodone/Acetaminophen (Hydrocodone-Acetamin 5-325 mg) 5 Mg-325 Mg Tablet, 1 EACH PO Q4-6 HOURS PRN for PAIN Prescribed by: MARCEL NANCE on 02/28/222155 Ipratropium [place] (Atrovent Hfa) 12.9 Gm Aers, 2 PUFF IH BID PRN for SHORTNESS OF BREATH, (Reported) Entered as Reported by: AMBROSIO CONNER on 01/25/21 112 Levofloxacin (Levofloxacin) 750 Mg Tablet, 750 MG PO DAILY Prescribed by: Cole Miguel on 03/24/222034 Multivitamin with Minerals (One Daily Plus Minerals) 1 Each Tablet, 1 EACH PO DAILY, (Reported) Entered as Reported by: AMBROSIO CONNER on 02/17/22 1546 Naproxen Sodium (Aleve) 220 Mg Capsule, 220 MG PO TID PRN for PAIN-MILD (1-4), (Reported) Entered as Reported by: AMBROSIO CONNER on 01/25/21 1120 Pantoprazole Sodium (Pantoprazole Sodium) 40 Mg Tablet.dr, 40 MG PO DAILY, (Reported) Entered as Reported by: TERRELL JUNIOR on 01/24/21 1654 Prednisone (Prednisone) 10 Mg Tab.ds.pk, 10 MG PO DAILY Prescribed by: ESAU SMITH on 02/18/22 1205 Sennosides (Senokot) 8.6 Mg Tablet, 8.6 MG PO BID PRN for CONSTIPATION-5TH LINE, (Reported) Entered as Reported by: TERRELL JUNIOR on 01/24/21 1654 Sennosides (Senna) 8.6 Mg Tablet, 8.6 MG PO BID, (Reported) Entered as Reported by: AMBROSIO CONNER on 02/17/22 1546 Valacyclovir HCl (Valtrex) 1,000 Mg Tablet, 1,000 MG PO TIDAC Prescribed by: MARCEL NANCE on 02/28/22 2155 Past Aucaitc-Jfddjz-Hweaie Hx Patient Social History Smoking Status: Former Smoker (Quit smoking 2 years ago) Type Used: Cigars (Smoked 6-7 cigars a day for 40 years) Alcohol Use?: No (Quit drinking 2-3 years ago. Reports drinking daily before that.) Have you traveled recently?: No Surgeries History of Surgeries: Yes (Loop recorder placed. Some sort of "vascular" surgery, unknown to patient) Respiratory History of Respiratory Disorde: Yes Respiratory Disorders: Chronic Bronchitis, COPD Cardiovascular History of Cardiac Disorders: Yes Cardiac Disorders: High Cholesterol, Peripheral Vascular, Syncope Neurological History of Neurological Disord: Yes Neurological Disorders: TIA Genitourinary History of Genitourinary Disor: No Gastrointestinal History of Gastrointestinal Di: Yes Gastrointestinal Disorders: Gastroesophageal Reflux, Esophagitis Musculoskeletal History of Musculoskeletal Dis: No Endocrine History of Endocrine Disorders: No HEENT History of HEENT Disorders: No Cancer History of Cancer: No Psychosocial History of Psychiatric Problem: Yes Behavioral Health Disorders: Depression Integumentary History of Skin or Integumenta: No Family Medical History Significant Family History: Heart Disease (Mother from [place]) Review of Systems-General Constitutional: No chills, No fever EENTM: No blurred vision, No double vision Respiratory: cough, dyspnea on exertion, short of breath Cardiovascular: chest pain, palpitations Gastrointestinal: No abdominal pain, No nausea, No vomiting Psychiatric/Neurological: Denies Numbness, Denies Weakness Physical Exam-General Problems Physical Exam General Appearance: no apparent distress (Patient reports major trouble breathing upon admission yesterday but says he feels much better this morning), thin Eyes: Bilateral Eye PERRL, Bilateral Eye EOMI HEENT: No scleral icterus (R), No scleral icterus (L), No pale conjunctivae (R), No pale conjunctivae (L) Neck: supple Respiratory: chest non-tender, no respiratory distress, no accessory muscle use, decreased breath sounds (Absent breath sounds on left) Cardiovascular: regular rate, rhythm, no murmur, other (Atrial fibrillation treated yesterday. Sinus at time of exam this morning.) Gastrointestinal: non tender, soft; No distended, No guarding, No rebound Neurologic/Psychiatric: alert, oriented x 3 Data Review Radiology Date of Exam:02/28/22 CT ANGIO CHEST W PROCEDURE: CT angiography of the chest with contrast. TECHNIQUE: Multiple contiguous axial images were obtained through the chest after uneventful bolus administration of intravenous contrast. 3D reconstructed CTA MIP acquisitions were also performed. Auto Exposure Controls were utilized during the CT exam to meet ALARA standards for radiation dose reduction. INDICATION: Respiratory distress. FINDINGS: There is some interstitial infiltrate in the left upper lobe. There is a left pleural effusion measuring 3 cm in thickness. There is left hilar adenopathy. There is mediastinal lymphadenopathy in the AP window extending into the subcarinal space of the mediastinum. Largest AP window node measures 3.8 cm in diameter. There is calcific atherosclerosis of the aorta but no aneurysm. There are no pulmonary emboli. There is no evidence of right ventricular strain. There are emphysematous changes in the lungs. There are some small patchy infiltrates in the right lung. There are calcified granulomas in both lungs. IMPRESSION: Left upper lobe interstitial infiltrate. There is no appreciable endobronchial lesion. There is mediastinal left hilar lymphadenopathy highly suspicious for neoplasm. There is a left pleural effusion present. There is no evidence for pulmonary embolism. Dictated by: Dictated on workstation # [id number] Dict: 02/28/221936 Trans: 02/28/221950 [facility] [id number] Interpreted by: ED MOON MD Electronically signed by: ED MOON MD 02/28/221950 Assessment/Plan Assessment/Plan Assessment/Plan Left pleural effusion Recurrent Drained on [address] [place] Fluid sent for pathology showed no evidence of malignant cells Hilar Lymphadenopathy - suspicious for neoplasm Acute on chronic respiratory failure Atrial fibrillation Cardiology consulted COPD Continue antibiotics, albuterol, and ipratropoium, Continue supplemental oxygen. Patient would likely benefit from CT surgery doing a biopsy of Hilar mass, unsure of benefit of possible bronchoscopy. CT from February did not see endobronchial mass. Pt state he must be "out" if he needs another thoracentesis. Supervisory-Addendum Brief Verification & Attestation Participated in pt care: history, MDM, physical Personally performed: exam, history, MDM, supervision of care Care discussed with: Medical Student Procedures: n/a Verification and Attestation of Medical Student E/M Service A medical student performed and documented this service. I then reviewed and verified all information documented by the medical student and made modifications to such information, when appropriate. I personally performed a physical exam, medical decision making and then discussed any differences between the notes and made revisions as necessary to create one note. Yaya Mancera , 04/20/22 , 13:39 AMBROSE GRANDA Apr 20, 2022 11:29 YAYA MANCERA DO Apr 20, 2022 13:39
--- NOTE | 2022-04-20 18:24 | Short Stay Summary-Hospitalist ---
History of Present Illness HPI/Chief Complaint Sharon Adamson is an 81 year old male with PMH COPD on 3 L continuously, former smoker, who presented with shortness of breath. He was admitted a couple months ago and found to have a left perihilar mass and mediastinal lymphadenopathy. 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 He denies fevers and chills. He denies cough. Source: patient Exam Limitations: no limitations Date Seen 04/20/22 Time Seen by a Provider: 10:50 Attending Physician No,Local Physician PCP Admitting Physician: Roxy Smith MD Attending Physician: Roxy Smith MD Referring Physician Date of Admission Apr 19, 2022 at 22:40 Home Medications & Allergies Home Medications Reviewed patient Home Medication Reconciliation performed by pharmacy medication reconciliations sound recording technician and/or nursing. Patients Allergies have been reviewed. Allergies Allergies Coded Allergies albuterol (Verified Adverse Reaction, Mild, 02/18/22) Only nebulized, tolerates albuterol from inhaler without issue simvastatin (Unverified Adverse Reaction, Unknown, 01/24/21) Past Lfxnwrs-Moqvsz-Rtappw Hx Patient Social History Tobacco type used: Cigars Smoking Status: Former Smoker (Quit smoking 2 years ago) Alcohol Use?: No (Quit drinking 2-3 years ago. Reports drinking daily before that.) Immunizations Up To Date First/Initial COVID19 Vaccinat: Denies Second COVID19 Vaccination Gurwinder: Denies Tetanus Booster (TDap): More Than 5 Years Hepatitis A: No Hepatitis B: No Date of Pneumonia Vaccine: Aug 14, 2016 Seasonal Allergies Seasonal Allergies: No Current Status Communicates: Verbally Primary Language: [place] Preferred Spoken Language: [place]al[place] Is interpretation needed?: No Past Medical History Surgeries: Cardiac, Vascular Surgery Chronic Bronchitis, COPD High Cholesterol, Peripheral Vascular, Syncope TIA Gastroesophageal Reflux, Esophagitis Depression Blood Disorders: Yes (Iron deficient anemia) Adverse Reaction/Blood Tranf: No Family Medical History Heart Disease (Mother from [place]) PAST SURGICAL HISTORY: -LOOP RECORDER IN PLACE-NOTED ON CXR -UNKNOWN "VASCULAR SURGERY"--PT HAS SCAR TO RIGHT UPPER CHEST, WITH PALPABLE SUB Q LEAD/CORD DOWN RIGHT LATERAL ABDOMEN Review of Systems Constitutional: no symptoms reported EENTM: no symptoms reported Respiratory: short of breath Cardiovascular: no symptoms reported Gastrointestinal: no symptoms reported Physical Exam Physical Exam Vital Signs Vital Signs - First Documented 04/19/22 04/20/22 21:40 00:00 Temp 36.9 Pulse 120 Resp 26 B/P (MAP) 149/79 (102) Pulse Ox 92 FiO2 60 Capillary Refill : Less Than 3 Seconds Height, Weight, BMI Height: '" Weight: lbs. oz. kg; 20.42 BMI Method: General Appearance: No Apparent Distress, Chronically ill Eyes: Bilateral Eye Normal Inspection, Bilateral Eye PERRL, Bilateral Eye EOMI Respiratory: No Respiratory Distress, Decreased Breath Sounds Cardiovascular: No Murmur, Tachycardia Extremity: Normal Inspection, No Pedal Edema Neurologic/Psychiatric: Alert, Oriented x3, Normal Mood/Affect Skin: Normal Color, Warm/Dry Results Results/Procedures Labs Laboratory Tests 04/19/22 21:48 04/20/22 02:58 Patient resulted labs reviewed. Imaging: Reviewed Imaging Films, Reviewed Imaging Report Short Stay Diagnosis Discharge Diagnosis-Short Stay Admission Diagnosis Pleural effusion, pneumonia Final Discharge Diagnosis Pleural effusion, pneumonia, lung mass Conclusion Plan Left pleural effusion Pneumonia Left lung mass Mediastinal lymphadenopathy Chronic respiratory failure with hypoxia COPD Former smoker Oxygen requirement at baseline, 3 L Started on IV antibiotics Transfer to [facility] for pulmonology evaluation Will likely need bronchoscopy with biopsies or CT guided biopsy and thoracentesis Diagnosis/Problems Diagnosis/Problems (1) Pleural effusion on left Status: Acute (2) Pneumonia Status: Acute (3) Lung mass Status: Acute ROXY SMITH MD Apr 20, 2022 18:24
[2022-04-20] MEDS ORDERED: AZITHROMYCIN 500 MG/NS 250 ML IVPB IV SCH ×2 (21:00)
== END 2022-04-20 18:15 | disposition short-term general hospital (02) | DRG 186 ==
LOC: EDUNIT# 21:40 → ER 21:41 → ICU 22:40
PROVIDERS: ADMIT Internal Medicine; ATTEND Internal Medicine
PROC: 5A09357 Assistance with Respiratory Ventilation, Less than 24 Consecutive Hours, Continuous Positive Airway Pressure (ICD-10-PCS; principal; 2022-04-20)
DX: J90 Pleural effusion, not elsewhere classified (principal); J18.9 Pneumonia, unspecified organism; J96.21 Acute and chronic respiratory failure with hypoxia; J96.22 Acute and chronic respiratory failure with hypercapnia; J44.0 Chronic obstructive pulmonary disease with (acute) lower respiratory infection; R91.8 Other nonspecific abnormal finding of lung field; R59.1 Generalized enlarged lymph nodes; Z87.891 Personal history of nicotine dependence; E78.00 Pure hypercholesterolemia, unspecified; I73.9 Peripheral vascular disease, unspecified; Z20.822 Contact with and (suspected) exposure to COVID-19; Z86.73 Personal history of transient ischemic attack (TIA), and cerebral infarction without residual deficits; K21.9 Gastro-esophageal reflux disease without esophagitis; F32.A Depression, unspecified; Z99.81 Dependence on supplemental oxygen; I48.91 Unspecified atrial fibrillation; Z79.899 Other long term (current) drug therapy; Z79.82 Long term (current) use of aspirin; I49.3 Ventricular premature depolarization
CPT/HCPCS: 36415; 71045; 80048; 80053; 82805; 83605; 83735; 83880; 84100; 84484; 85007; 85025; 85027; 85610; 85730; 87040; 87081; 87636; 93005; 94640; 94660; 99291